=== PATIENT | male | born 1960 | race Caucasian/White ===

== ENCOUNTER 2016-07-13 12:20 | Inpatient (IN) | END 2016-07-21 18:00 | disposition home or self-care (01) | DRG 246 | DX: I21.4 Non-ST elevation (NSTEMI) myocardial infarction (principal); I50.43 Acute on chronic combined systolic (congestive) and diastolic (congestive) heart failure; I42.9 Cardiomyopathy, unspecified; I25.82 Chronic total occlusion of coronary artery; I97.410 Intraoperative hemorrhage and hematoma of a circulatory system organ or structure complicating a cardiac catheterization; I10 Essential (primary) hypertension; I25.10 Atherosclerotic heart disease of native coronary artery without angina pectoris; Y84.0 Cardiac catheterization as the cause of abnormal reaction of the patient, or of later complication, without mention of misadventure at the time of the procedure; Y71.3 Surgical instruments, materials and cardiovascular devices (including sutures) associated with adverse incidents; Y92.234 Operating room of hospital as the place of occurrence of the external cause; Z86.73 Personal history of transient ischemic attack (TIA), and cerebral infarction without residual deficits; Z88.8 Allergy status to other drugs, medicaments and biological substances; Z87.891 Personal history of nicotine dependence ==

== ENCOUNTER 2017-01-15 08:03 | Inpatient (IN) | payer OTHER ==
[~2017-01-15] VITALS: Ht 172.7 cm; Wt 82.0 kg
[2017-01-15] VITALS (23 sets, daily range): BP systolic 111–149; BP diastolic 61–95; PULSE 59–78; RESP 12–28; Ht 172.7 cm; Wt 82.0 kg
[~2017-01-15 08:03] MED LIST: ASPI325T4 PO; ATOR20TA38 PO; CLOP75TA27 PO; METO-429 PO; NITR0.4T6 SL
[2017-01-15] MEDS ORDERED: LIDOCAINE 1% (MDV) 20 ML INJ ONE (08:44)
[2017-01-15] MEDS ORDERED: METHYLPREDNISOLONE 125 MG INJ ONE (08:44)
[2017-01-15] MEDS ORDERED: HEPARIN 1000 UNITS/ML 10 ML INJ ONE (08:44)
[2017-01-15] MEDS ORDERED: DIPHENHYDRAMINE 50 MG INJ ONE (08:44)
[2017-01-15] MEDS ORDERED: IODIXANOL LOCM 100 ML BTL ONE ×2 (08:44→10:41)
[2017-01-15] MEDS ORDERED: MIDAZOLAM 1 MG/ML 2 ML INJ ONE (08:49)
[2017-01-15] MEDS ORDERED: FENTAnyl 50 MCG/ML VIAL ONE (08:49)
[2017-01-15] MEDS ORDERED: NITROGLYCERIN (IC) 100 MCG/ML INJ ONE (08:50)
[2017-01-15] MEDS ORDERED: VERAPAMIL 5 MG INJ ONE (08:50)
[2017-01-15] MEDS ORDERED: METHYLPREDNISOLONE 125 MG INJ IV ONE (09:00)
[2017-01-15] MEDS ORDERED: FAMOTIDINE 20 MG INJ IV ONE (09:00)
[2017-01-15] MEDS ORDERED: ASPI81TA3 PO (09:15)
[2017-01-15] MEDS ORDERED: ACET-514 PO (09:30)
[2017-01-15] MEDS ORDERED: LISI10TA2 PO (09:30)
[2017-01-15] MEDS ORDERED: IPRA3AMP INHALATION (09:30)
[2017-01-15] MEDS ORDERED: MORP1DIS4 IV (09:30)
[2017-01-15] MEDS ORDERED: ALBU2.5V3 NEB ×2 (09:30)
[2017-01-15] MEDS ORDERED: FURO40SO PO (09:30)
[2017-01-15] MEDS ORDERED: FUROSEMIDE 40 MG INJ ONE (10:04)
[2017-01-15] MEDS ORDERED: CLOPIDOGREL 300 MG TAB ONE (10:34)
[2017-01-15] MEDS ORDERED: IOHEXOL 350MG/ML 50 ML BTL ONE (10:41)
[2017-01-15] MEDS ORDERED: ONDANSETRON 4 MG INJ IV PRN (11:00)
[2017-01-15] MEDS ORDERED: AL HYDROX/MG HYDROX/SIMETH 30 ML CUP PO PRN (11:00)
[2017-01-15] MEDS ORDERED: ZOLPIDEM 5 MG TAB PO PRN (11:00)
[2017-01-15] MEDS ORDERED: ACETAMINOPHEN 325 MG TAB PO PRN (11:00)
[2017-01-15] MEDS ORDERED: OXYCODONE/ACETAMINOPHEN (5/325) TAB PO PRN (11:00)
[2017-01-15] MEDS: SOD CHLORIDE 0.9% 1,000 ML IV SCH (11:44)
[2017-01-15] MEDS ORDERED: FUROSEMIDE 40 MG INJ IV ONE (16:00)
--- NOTE | 2017-01-15 18:42 | QN ---
Documentation Comment [id number] JOSE JESSICA MD Jan 15, 2017 18:42
--- NOTE | 2017-01-15 19:07 | RADRPT ---
Vent Rate: 65 bpm RR Interval: 0 msec [place] Interval: 182 msec QRS Duration: 112 msec QT Interval: 456 msec QTC Interval: 474 msec P-R-T [place]: 44 - -16 - 0 degrees Normal sinus rhythm Possible Left atrial enlargement LVH with ST T wave abnormality ST amp; T wave abnormality, consider inferior ischemia ST amp; T wave abnormality, consider anterolateral ischemia Prolonged QT Abnormal ECG Electronically Signed By: Baron Cullen [id number]
[2017-01-15 21:26] LABS: CALCIUM 8.3 mg/dl (8.4-10.2); CREATININE 1.2 mg/dl (0.61-1.24); MAGNESIUM 1.8 mg/dl (1.7-2.5); POTASSIUM 3.9 mmol/L (3.5-5.1)
[2017-01-16] VITALS (12 sets, daily range): BP systolic 115–189; BP diastolic 64–99; PULSE 59–99; RESP 10–23
[2017-01-16] MEDS: SOD CHLORIDE 0.9% 1,000 ML IV SCH (04:27)
[2017-01-16 04:50] LABS: BASOPHILS % 0.1 % (0.0-2.0); EOSINOPHILS % 0.1 % (0.0-7.0); HEMATOCRIT 33.9 % (42.0-52.0); HEMOGLOBIN 10.5 g/dl (14.0-18.0); LYMPHOCYTES # 0.7 10^3/ul (0.8-2.9); MEAN CORPUSCULAR HEMOGLOBIN 27.3 pg (29.0-33.0); MEAN CORPUSCULAR VOLUME 88.3 fl (82.0-101.0); MEAN PLATELET VOLUME 10.2 fl (7.4-10.4); MONOCYTE # 0.5 10^3/ul (0.3-0.9); MONOCYTES % 6.1 % (0.0-11.0); NEUTROPHIL # 6.3 10^3/ul (1.6-7.5); NEUTROPHILS % 84.3 % (39.0-77.0); PLATELET COUNT 231 10^3/UL (140-415); RED BLOOD COUNT 3.84 10^6/ul (4.70-6.10); RED CELL DISTRIBUTION WIDTH 15.6 % (11.5-14.5); WHITE BLOOD COUNT 7.4 10^3/ul (4.8-10.8)
[2017-01-16 05:14] LABS: CALCIUM 8.5 mg/dl (8.4-10.2); CREATININE 1.11 mg/dl (0.61-1.24)
[2017-01-16] MEDS ORDERED: FUROSEMIDE 40 MG TAB PO SCH (06:45)
[2017-01-16] MEDS ORDERED: METOPROLOL 50 MG TAB PO ONE (07:00)
[2017-01-16] MEDS ORDERED: LISINOPRIL 10 MG TAB PO ONE (07:00)
[2017-01-16] MEDS ORDERED: CLOPIDOGREL 75 MG TAB PO SCH (09:00)
[2017-01-16] MEDS ORDERED: ASPIRIN (EC) 325 MG TAB PO SCH (09:00)
--- NOTE | 2017-01-16 09:45 | PDOCDIS ---
Discharge Instructions CONDITION Patient Condition: Good HOME CARE INSTRUCTIONS: Diet Instructions: Low Fat /Cholesterol ACTIVITY: Activity Restrictions: Slowly Increase Activity FOLLOW UP/APPOINTMENTS Follow-up Plan [address] Frost 1 week PCp HARJEET DELANEY Jan 16, 2017 09:45
[2017-01-16] MEDS ORDERED: FURO40TA4 PO (09:50)
[2017-01-16] MEDS ORDERED: ASPI325T32 PO (09:50)
[2017-01-16] MEDS ORDERED: POTA8CAP PO (09:50)
[2017-01-16] MEDS ORDERED: CLOP75TA28 PO (09:50)
--- NOTE | 2017-01-16 10:01 | PN ---
Date/Time of Note Date/Time of Note DATE: 01/16/17 TIME: 09:58 Assessment/Plan VTE Prophylaxis VTE Prophylaxis Intervention: ambulation Lines/Catheters IV Catheter Type (from [facility]): Peripheral IV Urinary Cath still in place: No Assessment/Plan Chief Complaint/Hosp Course 1. CAD 2. S/p left heart catheterization 3. Hypertension, controlled Problems: Assessment/Plan 1. Discharge home Subjective 24 Hr Interval Summary Constitutional: improved, no complaints Cardiovascular: chest pain, edema, No lightheadedness, No no complaints, No orthopenea, No other, No palpitations, No paroxysmal nocturnal dyspnea Exam/Review of Systems Vital Signs Vitals Vital Signs Date Time Temp Pulse Resp B/P Pulse Ox O2 Delivery O2 Flow Rate FiO2 01/16/17 09:00 76 16 136/77 98 Room Air 01/16/17 08:00 97.5 01/15/17 15:00 2.0 Intake and Output 01/15/17 01/15/17 01/16/17 15:00 23:00 07:00 Intake Total 602 ml 1115 ml 350 ml Output Total 800 ml 1670 ml 0 ml Balance -198 ml -555 ml 350 ml Exam Constitutional: alert, oriented Respiratory: clear to auscultation Cardiovascular: regular rate and rhythm Results Result Diagram: 01/16/17 0431 01/16/17 0431 Results 24 hrs Laboratory Tests Test 01/15/17 21:00 01/16/17 04:31 Sodium Level 141 144 Potassium Level 3.9 4.0 Chloride Level 100 103 Carbon Dioxide Level 26 29 Anion Gap 19 H 16 Blood Urea Nitrogen 22 H 25 H Creatinine 1.20 1.11 Glucose Level 211 95 # Calcium Level 8.3 L 8.5 Magnesium Level 1.8 White Blood Count 7.4 # Red Blood Count 3.84 L Hemoglobin 10.5 L Hematocrit 33.9 L Mean Corpuscular Volume 88.3 Mean Corpuscular Hemoglobin 27.3 L Mean Corpuscular Hemoglobin Concent 31.0 L Red Cell Distribution Width 15.6 H Platelet Count 231 Mean Platelet Volume 10.2 Neutrophils % 84.3 H Lymphocytes % 9.0 L Monocytes % 6.1 Eosinophils % 0.1 Basophils % 0.1 Nucleated Red Blood Cells % 0.0 Neutrophils # 6.3 Lymphocytes # 0.7 L Monocytes # 0.5 Eosinophils # 0.0 Basophils # 0.0 Nucleated Red Blood Cells # 0.0 Medications Medications Current Medications Aspirin (Ecotrin) 325 mg DAILY PO Last administered on 01/16/17 08:33; Admin Dose 325 MG; Start 01/16/17 at 09:00 Clopidogrel Bisulfate (plaVIX) 75 mg DAILY PO Last administered on 01/16/17 08 :33; Admin Dose 75 MG; Start 01/16/17 at 09:00 Acetaminophen (Tylenol Tab) 650 mg Q4H PRN PO NON-CARDIAC PAIN LEVEL 1-3; Start 01/15/17 at 11:00 Oxycodone/ Acetaminophen (Percocet (5/ 325)) 1 tab Q4H PRN PO REPORTED NON- CARDIAC PAIN 4-7; Start 01/15/17 at 11:00 Al Hydrox/Mg Hydrox/Simethicone (Mag-Al Plus) 30 ml Q4H PRN PO GASTROINTESTINAL UPSET; Start 01/15/17 at 11:00 Ondansetron HCl 4 mg 4 mg Q4H PRN IV NAUSEA AND/OR VOMITING; Start 01/15/17 at 11:00 Sodium Chloride (NS) 1,000 ml @ 50 mls/hr Q20H IV Last administered on 04:27; Admin Dose 50 MLS/HR; Start 01/15/17 at 11:00 Furosemide (Lasix) 40 mg DAILY@06 PO Last administered on 01/16/17 08:33; Admin Dose 40 MG; Start 01/16/17 at 06:45 HARJEET DELANEY Jan 16, 2017 10:01
--- NOTE | 2017-01-16 10:06 | CONS ---
Date/Time of Note Date/Time of Note DATE: 01/16/17 TIME: 10:04 Assessment/Plan Assessment/Plan Additional Assessment/Plan 1.Nstemi-s/p LHC with diffuse cad rca/lcx - now s/p PTCA - tolerated well - plan for dispo now. 2.Chest pain - resolved, om med rx now. 3.HTN - well rX. 4.abnl ecg - s/p LHC now. 5.Cardiomyopathy-decreased LVEF 40-45% -not in CHF by exam. Consultation Date/Type/Reason Admit Date/Time Jan 15, 2017 at 10:48 Initial Consult Date 24 HR Interval Summary Free Text/Dictation NO acute change - s/p PTCA - DR. Frost to follow as outpt. ROS: No fever, no chills, no nausea, no vomiting, no diarrhea/constipation No recent weight changes No chest pain, no PND, no orthopnea No dizziness, blurred vision No thirst, no heat or cold intolerance Exam/Review of Systems Vital Signs Vitals Vital Signs Date Time Temp Pulse Resp B/P Pulse Ox O2 Delivery O2 Flow Rate FiO2 01/16/17 09:00 76 16 136/77 98 Room Air 01/16/17 08:00 97.5 01/15/17 15:00 2.0 Intake and Output 01/15/17 01/15/17 01/16/17 15:00 23:00 07:00 Intake Total 602 ml 1115 ml 350 ml Output Total 800 ml 1670 ml 0 ml Balance -198 ml -555 ml 350 ml Exam General: WN/WD/NAD, AOx 3 HEENT: Unicetric/atraumatic/EOMI (follows commands) NECK: JVD elevated, no thyromegaly Lymph: no lymphadenopathy HEART: regular with no S3, II/ systolic murmur at apex LUNGS: Coarse sounds ABD: soft, NT, ND, +BS : Intact Neuro: non focal SKIN: chronic changes EXT: trace edema Results Result Diagram: 01/16/1743001/16/17 0431 Results 24 hrs Laboratory Tests Test 01/15/17 21:00 01/16/17 04:31 Sodium Level 141 144 Potassium Level 3.9 4.0 Chloride Level 100 103 Carbon Dioxide Level 26 29 Anion Gap 19 H 16 Blood Urea Nitrogen 22 H 25 H Creatinine 1.20 1.11 Glucose Level 211 95 # Calcium Level 8.3 L 8.5 Magnesium Level 1.8 White Blood Count 7.4 # Red Blood Count 3.84 L Hemoglobin 10.5 L Hematocrit 33.9 L Mean Corpuscular Volume 88.3 Mean Corpuscular Hemoglobin 27.3 L Mean Corpuscular Hemoglobin Concent 31.0 L Red Cell Distribution Width 15.6 H Platelet Count 231 Mean Platelet Volume 10.2 Neutrophils % 84.3 H Lymphocytes % 9.0 L Monocytes % 6.1 Eosinophils % 0.1 Basophils % 0.1 Nucleated Red Blood Cells % 0.0 Neutrophils # 6.3 Lymphocytes # 0.7 L Monocytes # 0.5 Eosinophils # 0.0 Basophils # 0.0 Nucleated Red Blood Cells # 0.0 Medications Medications Current Medications Aspirin (Ecotrin) 325 mg DAILY PO Last administered on 01/16/17 08:33; Admin Dose 325 MG; Start 01/16/17 at 09:00 Clopidogrel Bisulfate (plaVIX) 75 mg DAILY PO Last administered on 01/16/17 08 :33; Admin Dose 75 MG; Start 01/16/17 at 09:00 Acetaminophen (Tylenol Tab) 650 mg Q4H PRN PO NON-CARDIAC PAIN LEVEL 1-3; Start 01/15/17 at 11:00 Oxycodone/ Acetaminophen (Percocet (5/ 325)) 1 tab Q4H PRN PO REPORTED NON- CARDIAC PAIN 4-7; Start 01/15/17 at 11:00 Al Hydrox/Mg Hydrox/Simethicone (Mag-Al Plus) 30 ml Q4H PRN PO GASTROINTESTINAL UPSET; Start 01/15/17 at 11:00 Ondansetron HCl 4 mg 4 mg Q4H PRN IV NAUSEA AND/OR VOMITING; Start 01/15/17 at 11:00 Sodium Chloride (NS) 1,000 ml @ 50 mls/hr Q20H IV Last administered on 04:27; Admin Dose 50 MLS/HR; Start 01/15/17 at 11:00 Furosemide (Lasix) 40 mg DAILY@06 PO Last administered on 01/16/17 08:33; Admin Dose 40 MG; Start 01/16/17 at 06:45 ANDERSON SEN MD Jan 16, 2017 10:06
--- NOTE | 2017-01-17 21:10 | DS ---
Date/Time of Note Date/Time of Note DATE: 01/17/17 TIME: 21:06 Discharge Summary Admission/Discharge Info Admit Date/Time Jan 15, 2017 at 10:48 Discharge Date/Time Jan 16, 2017 at 13:12 Discharge Diagnosis NSTEMI, hypertension Patient Condition: Good Consults Dr Frost Procedures s/p left heart catheterization Hx of Present Illness Pt was admitted to [facility] with chest pain and uncontrolled hypertension, He was stabilized in [facility] and transferred for procedure to [facility]. Hospital Course 1. CAD 2. S/p left heart catheterization 3. Hypertension, controlled Home Meds Active Scripts Potassium Chloride* (Potassium Chloride*) 8 Meq Capsule.er, 8 MEQ PO BID for 30 Days, CAP Prov:HARJEET DELANEY 01/16/17 Furosemide* (Furosemide*) 40 Mg Tablet, 40 MG PO DAILY@06 for 30 Days, TAB Prov:HARJEET DELANEY 01/16/17 Clopidogrel Bisulfate (Clopidogrel) 75 Mg Tablet, 75 MG PO DAILY for 30 Days, TAB Prov:HARJEET DELANEY 01/16/17 Aspirin (Aspir-Sweetie) 325 Mg Tablet.dr, 325 MG PO DAILY for 30 Days Prov:HARJEET DELANEY 01/16/17 Reported Medications Acetaminophen (Acetaminophen) 325 Mg Tablet, 325 MG PO Q6 Y for MILD PAIN LEVEL 1-3, TAB 01/15/17 Lisinopril* (Lisinopril*) 10 Mg Tablet, 10 MG PO DAILY, #30 TAB 01/15/17 Aspirin* (Aspirin* Chew) 81 Mg Tab.chew, 81 MG PO DAILY, TAB.CHEW 01/15/17 Nitroglycerin* (Nitroglycerin* SL) 0.4 Mg Tab.subl, 0.4 MG SL Q5MIN Y for CHEST PAIN, #50 BOTTLE 07/21/16 Clopidogrel Bisulfate (Clopidogrel) 75 Mg Tablet, 75 MG PO DAILY, #30 TAB 07/21/16 Metoprolol Tartrate* (Lopressor*) 50 Mg Tab, 50 MG PO BID, #60 TAB 07/13/16 Atorvastatin Calcium* (Atorvastatin Calcium*) 20 Mg Tablet, 20 MG PO QHS, #30 TAB 07/13/16 Discontinued Reported Medications Albuterol Sulfate* (Albuterol Sulfate* Neb) 0.083%-3 Ml Neb, 2.5 MG NEB Q6 Y for SHORTNESS OF BREATH, #30 VIAL 01/15/17 Ipratropium-Albuterol (Ipratropium-Albuterol) 0.5-3 Mg/3 Ml Ampul.neb, 3 ML INHALATION Q6, #30 VIAL 01/15/17 Albuterol Sulfate* (Albuterol Sulfate* Neb) 0.083%-3 Ml Neb, 2.5 MG NEB Q4H, # 30 VIAL 01/15/17 Morphine (Morphine) 1 Mg/1 Ml Disp.syrin, 1 MG IV Q4H Y for SEVERE PAIN LEVEL 7- 10, EA 01/15/17 Furosemide* (Furosemide*) 40 Mg/5 Ml Solution, 40 MG PO BID, #300 ML 01/15/17 Aspirin* (Aspirin*) 325 Mg Tablet, 325 MG PO DAILY, #30 TAB 07/21/16 Primary Care Provider Not On Staff Doctor HARJEET DELANEY Jan 17, 2017 21:10
--- NOTE | 2017-01-18 06:52 | CARRPT ---
DATE OF PROCEDURE: TYPE OF PROCEDURE: 1. Left heart catheterization. 2. Coronary angiography. 3. Measurement of left ventricular end-diastolic pressure. 4. Percutaneous transluminal coronary angioplasty to PDA with 2.0 x 12 mm balloon. ATTENDING PHYSICIAN: Ernst Frost MD REFERRING PHYSICIAN: Brian Amaro MD TYPE OF ANESTHESIA: Conscious and local. INDICATION: Angina with positive stress test findings for inferior and inferolateral ischemia. BRIEF HISTORY AND HOSPITAL COURSE: The patient is a 56-year-old male with a history of hypertension, dyslipidemia, coronary artery disease, status post prior PTCA and stent placement in right coronary artery June 2016, and now represents with complaints of substernal chest pain consistent with angina. The patient additionally underwent a cardiac stress test at an outside hospital with inferior and inferolateral ischemia and depressed EF. Given these findings, patient referred for and presents today in order to undergo left heart catheterization as a transfer from Hospital for further evaluation and treatment of obstructive coronary artery disease and to assess for recurrent significant obstructive coronary artery disease. of chest pain, subsequently admitted to the hospital. PROCEDURE: After informed consent was obtained, the patient was brought the [facility] cardiac catheterization lab where his right radial area was prepped and draped in the usual sterile fashion. Two percent lidocaine was infiltrated into the right radial area in order to achieve adequate local anesthesia. Using modified Seldinger technique, the radial artery was cannulated and a 6-Macanese arterial sheath was placed. A 6- Macanese JL 3.5 catheter was used to cannulate the left main coronary ostium. With contrast injection, multiple views of the left coronary arterial system were obtained. A JL 3.5 guidewire and a JR 4 were used to cannulate the right coronary ostium. With contrast injection, multiple views of the right coronary arterial system were obtained. JR 4 was removed over guidewire and a 6-Macanese pigtail was passed down the ascending aorta and placed in the LV. Left ventricular end-diastolic pressure was measured. Pullback across the aortic valve to assess for a significant gradient, which there was not and removed. Subsequently, at this time, we moved directly into procedure. The patient had been given a radial cocktail that included 5000 units of heparin, 2.5 mg of verapamil and 200 mcg of IC nitroglycerin. The patient was given an additional 2000 units of heparin in order to achieve an adequate ACT. A JR 4 guide was used to cannulate the right coronary ostium. A Balance guidewire was passed distally into the vessel and left there as a latanya wire. A second 0.014 Senior Finance Manager 50 guidewire was passed distal into the PDA and a 2.0 x 12 mm balloon was used to make balloon inflations along the length of the vessel, restarting blood flow through this vessel. Subsequently, the balloon was removed due to inability to pass a stent and good balloon result of small caliber vessel. I elected to terminate the procedure at this point. Subsequently, the interventional guidewires were removed, and the patient given 200 mcg of IC nitroglycerin, and a followup angiogram was obtained revealing now significantly improved result with improved flow throughout the length of the patient's PDA which he before had a 99 percent blockage. Subsequently, at this time, the interventional guide and guidewires were removed. This completed the procedure. There were no noted complications. FINDINGS: 1. Coronary angiography. Left main 5 mm, no significant stenosis. Circumflex proximally is a 2.5 mm vessel and has a 70 to 80 percent stenosis and then becomes 100 percent occluded, and seen to be recapitulated via [id number] collaterals as has been previously on cath in June, extending from the patient's obtuse marginal branch and distally from the branches of LAD. The LAD proximally is a 3 mm vessel and is free of any significant focal stenoses until it get to the apex and just at the apex and around the apex has a very focal 90 to 95 percent stenosis. There is a mid branching diagonal 2.5 mm with a midbody tubular stenosis up to approximately 60 percent. The right coronary artery proximally is a 3 mm vessel and has a widely patent stent in its midportion. There is a posterolateral branch which covers a pretty significant territory, 2 mm with stenoses up to approximately 60 to 70 percent in its very, very distal portion where it was a 2 mm vessel. The patient's PDA has the stenosis up to approximately 90 to 95 percent. There are several acute marginal branches with diffuse stenosis up to approximately 70 to 80 percent. 2. Measurement of left ventricular end-diastolic pressure 38 to 40. No significant aortic stenosis by gradient. 3. PTCA. Prior to PTCA, within the patient's PDA, he had diffuse stenosis up to approximately 99 percent. Post PTCA, patient had digital approximately 30 percent stenosis in the proximal portion with excellent MARK III flow throughout the vessel. TOTAL FLUOROSCOPY TIME: 19.4 minutes. TOTAL CONTRAST: 230 mL. IMPRESSION: 1. Multivessel obstructive coronary artery disease previously known from prior catheterization, turned down for CABG, with likely for new angina being reoccluded PDA status post successful PTCA. 2. Widely patent mid right coronary artery stents. 3. A 100 percent occlusion of the patient's circumflex with [id number] collateral flow. 4. High-grade stenosis in the patient's LAD as it turns to apex of the heart. 5. Significantly elevated left heart filling pressures. 6. No significant aortic stenosis by gradient. RECOMMENDATIONS: 1. Would maintain patient on Plavix 75 mg 1 tab p.o. daily times at least 1 year. 2. Aspirin 325 mg 1 tab p.o. daily indefinitely. 3. Maximize medical management. 4. Aggressive risk factor reduction. 5. The patient will be admitted to the ICU for of his presenting symptoms. Dictated By: Estephania Hamilton /fnt/ec /Document#: [id number] CC: Brian Amaro MD;*End*
--- NOTE | 2017-01-18 19:29 | RADRPT ---
Vent Rate: 80 bpm RR Interval: 0 msec [place] Interval: 202 msec QRS Duration: 108 msec QT Interval: 410 msec QTC Interval: 472 msec P-R-T [place]: 55 - 46 - 138 degrees Normal sinus rhythm Possible Left atrial enlargement Incomplete left bundle branch block ST amp; T wave abnormality, consider lateral ischemia Prolonged QT Abnormal ECG Electronically Signed By: Baron Cullen [id number]
--- NOTE | 2017-01-18 19:29 | RADRPT ---
Vent Rate: 67 bpm RR Interval: 0 msec [place] Interval: 182 msec QRS Duration: 118 msec QT Interval: 484 msec QTC Interval: 511 msec P-R-T [place]: 33 - 9 - 0 degrees Normal sinus rhythm Possible Left atrial enlargement Possible Inferior infarct , age undetermined Anterior infarct , age undetermined ST amp; T wave abnormality, consider lateral ischemia Prolonged QT Abnormal ECG Electronically Signed By: Baron Cullen [id number]
== END 2017-01-16 13:12 | disposition home or self-care (01) | DRG 251 ==
LOC: SDS 08:03 → CCL 08:03 → ICU 10:48
PROVIDERS: ADMIT Internal Medicine Nephrology; ATTEND Internal Medicine Nephrology
PROC: B2101ZZ Fluoroscopy of Single Coronary Artery using Low Osmolar Contrast (ICD-10-PCS; 2017-01-15)
PROC: 02703ZZ Dilation of Coronary Artery, One Artery, Percutaneous Approach (ICD-10-PCS; principal; 2017-01-15 09:00)
PROC: 4A023N7 Measurement of Cardiac Sampling and Pressure, Left Heart, Percutaneous Approach (ICD-10-PCS; 2017-01-15 09:00)
DX: I21.4 Non-ST elevation (NSTEMI) myocardial infarction (principal); I42.9 Cardiomyopathy, unspecified; I25.10 Atherosclerotic heart disease of native coronary artery without angina pectoris; I10 Essential (primary) hypertension; Z79.82 Long term (current) use of aspirin
CPT/HCPCS: 80048; 83735; 85025; 87081; 92920; 93005; 93459; C1725; C1769; C1887; J1200; J1644; J1940; J2250; J2930; J3010; J7030; Q9967

== ENCOUNTER 2017-02-27 21:37 | Inpatient (IN) | payer OTHER ==
[~2017-02-27] VITALS: Ht 172.7 cm; Wt 76.0 kg
[~2017-02-27 21:37] MED LIST changes: +ACET-514 PO; +ASPI325T32 PO; -ASPI325T4 PO; +ASPI81TA3 PO; +CLOP75TA28 PO; +FURO40TA4 PO; +LISI10TA2 PO; +POTA8CAP PO
[2017-02-27] MEDS ORDERED: FUROSEMIDE 40 MG INJ IV ONE (22:30)
[2017-02-27] MEDS ORDERED: ENALAPRILAT 1.25 MG INJ IV ONE (22:30)
[2017-02-27] MEDS ORDERED: ASPIRIN 81 MG TAB PO ONE (22:30)
[2017-02-27] MEDS ORDERED: NITROGLYCERIN (SL) 0.4 MG TAB SL ONE (22:30)
[2017-02-27 23:15] LABS: BASOPHIL # 0.1 10^3/ul (0.0-0.1); BASOPHILS % 0.7 % (0.0-2.0); EOSINOPHILS # 0.1 10^3/ul (0.0-0.5); EOSINOPHILS % 1.5 % (0.0-7.0); HEMATOCRIT 36.9 % (42.0-52.0); HEMOGLOBIN 11.3 g/dl (14.0-18.0); LYMPHOCYTES # 1.1 10^3/ul (0.8-2.9); LYMPHOCYTES % 12.5 % (15.0-51.0); MEAN CORPUSCULAR HEMOGLOBIN 26.5 pg (29.0-33.0); MEAN CORPUSCULAR HGB CONC 30.6 g/dl (32.0-37.0); MEAN CORPUSCULAR VOLUME 86.4 fl (82.0-101.0); MEAN PLATELET VOLUME 9.7 fl (7.4-10.4); MONOCYTE # 0.6 10^3/ul (0.3-0.9); NEUTROPHILS % 77.8 % (39.0-77.0); PLATELET COUNT 345 10^3/UL (140-415); RED BLOOD COUNT 4.27 10^6/ul (4.70-6.10); RED CELL DISTRIBUTION WIDTH 15.8 % (11.5-14.5); WHITE BLOOD COUNT 8.6 10^3/ul (4.8-10.8)
[2017-02-27 23:30] LABS: CALCIUM 8.8 mg/dl (8.4-10.2); CREATININE 1.37 mg/dl (0.61-1.24); POTASSIUM 3.7 mmol/L (3.5-5.1)
[2017-02-27 23:31] LABS: ALBUMIN 3.8 g/dl (3.3-4.9); ALBUMIN/GLOBULIN RATIO 1.11; TOTAL PROTEIN 7.2 g/dl (6.1-8.1)
--- NOTE | 2017-02-27 23:45 | ERA ---
ER Documentation Chief Complaint Date/Time DATE: 02/27/17 TIME: 23:41 Chief Complaint HPI 56-year-old man presents with shortness of breath, dyspnea on exertion, bilateral pedal edema 2-3 days after running out of his nitroglycerin and aspirin. Patient has a long history of CHF. Patient denies chest pain, no fevers or chills, no vomiting or diarrhea, no abdominal pain. ROS All systems reviewed and are negative except as per history of present illness. Medications Home Meds Active Scripts Potassium Chloride* (Potassium Chloride*) 8 Meq Capsule.er, 8 MEQ PO BID for 30 Days, CAP Prov:HARJEET DELANEY 01/16/17 Furosemide* (Furosemide*) 40 Mg Tablet, 40 MG PO DAILY@06 for 30 Days, TAB Prov:HARJEET DELANEY 01/16/17 Clopidogrel Bisulfate (Clopidogrel) 75 Mg Tablet, 75 MG PO DAILY for 30 Days, TAB Prov:HARJEET DELANEY 01/16/17 Aspirin (Aspir-Sweetie) 325 Mg Tablet.dr, 325 MG PO DAILY for 30 Days Prov:HARJEET DELANEY 01/16/17 Reported Medications Acetaminophen (Acetaminophen) 325 Mg Tablet, 325 MG PO Q6 Y for MILD PAIN LEVEL 1-3, TAB 01/15/17 Lisinopril* (Lisinopril*) 10 Mg Tablet, 10 MG PO DAILY, #30 TAB 01/15/17 Aspirin* (Aspirin* Chew) 81 Mg Tab.chew, 81 MG PO DAILY, TAB.CHEW 01/15/17 Nitroglycerin* (Nitroglycerin* SL) 0.4 Mg Tab.subl, 0.4 MG SL Q5MIN Y for CHEST PAIN, #50 BOTTLE 07/21/16 Clopidogrel Bisulfate (Clopidogrel) 75 Mg Tablet, 75 MG PO DAILY, #30 TAB 07/21/16 Metoprolol Tartrate* (Lopressor*) 50 Mg Tab, 50 MG PO BID, #60 TAB 07/13/16 Atorvastatin Calcium* (Atorvastatin Calcium*) 20 Mg Tablet, 20 MG PO QHS, #30 TAB 07/13/16 Allergies Allergies: Coded Allergies: Iodine (Verified Allergy, FAINT, 01/30/11) PMhx/Soc Previous TIA, coronary artery disease status post balloon and stent angioplasty of the LAD, hypertension, CHF, previous non-STEMI History of Surgery: No Anesthesia Reaction: No Hx Neurological Disorder: No Hx Respiratory Disorders: No Hx Cardiac Disorders: Yes Hx Psychiatric Problems: No Hx Miscellaneous Medical Probl: Yes Hx Alcohol Use: No Hx Substance Use: No Hx Tobacco Use: Yes FmHx Family History: No diabetes Physical Exam Vitals Vital Signs Date Time Temp Pulse Resp B/P Pulse Ox O2 Delivery O2 Flow Rate FiO2 02/28/17 00:14 98.5 85 23 150/71 99 Room Air 2.0 02/27/17 23:54 98.5 75 23 161/81 99 Room Air 2.0 02/27/17 23:45 98.5 89 23 175/71 99 02/27/17 23:13 98.7 81 19 154/74 100 Room Air 2.0 Physical Exam GENERAL: Well-developed, well-nourished, dyspneic, afebrile HEENT: Moist mucous membranes, pink conjunctiva, no cervical spine tenderness or step-off deformities, no goiter, no jaundice or icterus, extraocular movements intact without pain. No submandibular induration, and no pharyngeal erythema NEURO: Alert and oriented 3, cranial nerves II through XII intact bilaterally, pupils equal round reactive to light, no focal deficits or facial asymmetry, sensation intact distally Strength 5/5 in upper and lower extremities bilaterally CARDIAC: Regular rate and rhythm, no murmurs rubs or gallops LUNGS: Bilateral crackles, poor air entry, no wheezing or stridor ABDOMEN: Soft nontender, no guarding, no rigidity, no rebound, no psoas sign no obturator sign. Normoactive bowel sounds SKIN: Warm and dry to touch, no abrasions, contusions, or hematomas, no lacerations, no ecchymosis, no target lesions, and without ulcers EXTREMITIES: 1+ pedal edema bilaterally, calves are bilaterally symmetrical, no Homans sign, no popliteal cord sign. Distal pulses equal and bilateral PSYCH: Normal affect without agitation or irritability Result Diagram: 02/27/17222502/27/172225 Results 24 hrs Laboratory Tests Test 02/27/17 22:26 White Blood Count 8.610^3/ul Red Blood Count 4.2710^6/ul Hemoglobin 11.3g/dl Hematocrit 36.9% Mean Corpuscular Volume 86.4fl Mean Corpuscular Hemoglobin 26.5pg Mean Corpuscular Hemoglobin Concent 30.6g/dl Red Cell Distribution Width 15.8% Platelet Count 28022^3/UL Mean Platelet Volume 9.7fl Neutrophils % 77.8% Lymphocytes % 12.5% Monocytes % 7.0% Eosinophils % 1.5% Basophils % 0.7% Nucleated Red Blood Cells % 0.0/100WBC Neutrophils # (Manual) 6.710^3/ul Lymphocytes # 1.110^3/ul Monocytes # 0.610^3/ul Eosinophils # 0.110^3/ul Basophils # 0.110^3/ul Nucleated Red Blood Cells # 0.010^3/ul Sodium Level 143mmol/L Potassium Level 3.7mmol/L Chloride Level 110mmol/L Carbon Dioxide Level 20mmol/L Anion Gap 17 Blood Urea Nitrogen 29mg/dl Creatinine 1.37mg/dl Glucose Level 135mg/dl Calcium Level 8.8mg/dl Total Bilirubin 1.0mg/dl Direct Bilirubin 0.00mg/dl Indirect Bilirubin 1.0mg/dl Aspartate Amino Transf (AST/SGOT) 21IU/L Alanine Aminotransferase (ALT/SGPT) 32IU/L Alkaline Phosphatase 73IU/L Troponin I 0.014ng/ml B-Type Natriuretic Peptide 20741AT/ML Total Protein 7.2g/dl Albumin 3.8g/dl Globulin 3.40g/dl Albumin/Globulin Ratio 1.11 Lipase 132U/L Current Medications Medications (Trade) Dose Ordered Sig/Estelita Route PRN Reason Start Time Stop Time Status Last Admin Dose Admin Nitroglycerin (Nitroglycerin (Sl Tab) 0.4 Mg) 1 tab ONCE ONCE SL 02/27/17 22:30 02/27/17 22:31 DC 02/27/17 22:49 Aspirin (Aspirin) 324 mg ONCE ONCE PO 02/27/17 22:30 02/27/17 22:31 DC 02/27/17 22:47 Enalaprilat (Vasotec Iv) 1.25 mg ONCE ONCE IV 02/27/17 22:30 02/27/17 22:31 DC 02/27/17 22:49 Furosemide (Lasix) 60 mg ONCE ONCE IV 02/27/17 22:30 02/27/17 22:31 DC 02/27/17 22:49 Nitroglycerin (Nitroglycerin (Sl Tab) 0.4 Mg) 3 tab ONCE ONCE SL 02/28/17 00:00 02/28/17 00:01 DC Procedures/MDM IV line was established patient was placed on cardiac nurse practitioner rhythm strip revealed a sinus rhythm at about 70 bpm with upright P and T waves. Patient was afebrile. One view chest x-ray performed, read by me revealed cardiomegaly and bilateral pulmonary vascular congestion consistent with decompensated heart failure, no acute infiltrates, no pneumothorax. EKG performed, read by me revealed a normal sinus rhythm at 74 bpm, normal axis with a right ventricular conduction delay and T-wave inversions in leads V5 through V6. No acute ST elevations or depressions noted. I initially administered aspirin 324 mg p.o. for cardioprotective measures, enalapril 1.25 mg IV, furosemide 60 mg IV 1 and nitroglycerin 0.4 mg sublingual 3. CBC and electrolytes were normal, liver function tests normal, troponin negative , BNP elevated. Critical Care: Time: 50 minutes, this was time separate from other billable procedures. Treatments/Evaluations: Close monitoring and treatment of unstable vital signs, cardiorespiratory, and neurologic status, while maintaining tight balance of fluid, respiratory, and cardiac interventions. For continued symptoms and to help with diuresis further I administered another round of nitroglycerin 0.4 mg sublingual 3 Patient will be admitted to telemetry setting under Dr. Amaro. Departure Diagnosis: Primary Impression: CHF (congestive heart failure) Qualified Code: I50.41 - Acute combined systolic and diastolic congestive heart failure Additional Impression: Hypertension Qualified Code: I10 - Essential hypertension Condition: CE Ochoa MD Feb 27, 2017 23:45
--- NOTE | 2017-02-27 23:58 | RADRPT ---
PROCEDURE: Portable chest x-ray. CLINICAL INDICATION: 56 years of age, female. Shortness of breath. TECHNIQUE: Portable AP view of the chest. COMPARISON: July 14, 2016 FINDINGS: Tortuous aorta. Diffuse globular globular enlargement of the cardiopericardial silhouette has increa sed from prior exam. Pulmonary vessels are prominent and indistinct and there is hazy ground-glass opacity in the lungs i n keeping with interstitial edema. Left lung base opacity may represent atelectasis. Negative for pleural effusion or pneumothorax. No acute bony abnormality. IMPRESSION: Diffuse globular enlargement of cardiopericardial silhouette is increased from prior exam and may be due to cardiomegaly and/or pericardial effusion. Interstitial pulmonary edema. RPTAT: HCTS Physician Grisel Date Time Electronically viewed and signed by Oswald Brasher Physician on 02/27/2017 23:58 /
[2017-02-28] MEDS ORDERED: NITROGLYCERIN (SL) 0.4 MG TAB SL ONE
[2017-02-28 00:04] LABS: TROPONIN-I 0.014 ng/ml (0.00-0.12)
[2017-02-28 02:00] VITALS: TEMP 98.7
[2017-02-28] MEDS ORDERED: ACETAMINOPHEN 325 MG TAB PO PRN ×2 (06:30)
[2017-02-28] MEDS ORDERED: HYDROCODONE/APAP (5/325) TAB PO PRN (06:30)
[2017-02-28] MEDS ORDERED: DOCUSATE SODIUM 100 MG CAP PO PRN (06:30)
[2017-02-28] MEDS ORDERED: ZOLPIDEM 5 MG TAB PO PRN (06:30)
[2017-02-28] MEDS ORDERED: FUROSEMIDE 40 MG INJ IV ONE (06:30)
[2017-02-28] MEDS ORDERED: NACL 0.9% 3 ML SYG IV SCH (06:30)
[2017-02-28] MEDS ORDERED: NITROGLYCERIN (SL) 0.4 MG TAB SL PRN (06:30)
[2017-02-28] MEDS ORDERED: ONDANSETRON 4 MG INJ IV PRN (06:30)
[2017-02-28] MEDS: FAMOTIDINE 20 MG TAB PO SCH ×2 (08:39→21:00)
[2017-02-28] MEDS: ASPIRIN 81 MG TAB PO SCH (08:40)
[2017-02-28] MEDS: CLOPIDOGREL 75 MG TAB PO SCH (08:41)
[2017-02-28] MEDS: ENOXAPARIN 30 MG/0.3 ML SYG SC SCH (08:41)
[2017-02-28] MEDS: METOPROLOL 50 MG TAB PO SCH ×2 (08:41→21:00)
[2017-02-28] MEDS ORDERED: CLOPIDOGREL 75 MG TAB PO SCH (09:00)
[2017-02-28 10:27] LABS: ADD UMIC NO; UR ASCORBIC ACID NEGATIVE (NEGATIVE); UR BILIRUBIN (Dip) NEGATIVE (NEGATIVE); UR BLOOD (Dip) NEGATIVE (NEGATIVE); UR CLARITY CLEAR (CLEAR); UR COLOR STRAW (YELLOW); UR GLUCOSE (Dip) NEGATIVE (NEGATIVE); UR KETONES (Dip) NEGATIVE (NEGATIVE); UR LEUKOCYTE ESTERASE (Dip) NEGATIVE Leu/ul (NEGATIVE); UR NITRITE (Dip) NEGATIVE (NEGATIVE); UR SPECIFIC GRAVITY (Dip) 1.006 (1.003-1.030); UR TOTAL PROTEIN (Dip) NEGATIVE (NEGATIVE); UR UROBILINOGEN (Dip) NEGATIVE (NEGATIVE)
--- NOTE | 2017-02-28 12:44 | RADRPT ---
Echocardiogram Report Patient Name: GILMA DASH Gender: Male Date: 1960 Study Date: 28-Feb-2017 News Internship: [facility] Location: [facility] Ref. Physician: ECTOR WHITAKER Quality: Adequate Procedures: Transthoracic echocardiogram with complete 2D, M-Mode, and doppler examination. Indications: Cardiomegaly, chf. 2D/M Mode Doppler Measurement Value Normal Ranges Measurement Value Normal Ranges LVIDd 2D 6.6 3.5 - 5.6 cm AV Peak Josh 2.2 m/sec LVIDs 2D 4.9 2.1 - 4.1 cm AV Peak PG 19.0 mmHg FS 2D 24.9 % AI Peak PG 109.0 mmHg LVPWd 2D 1.3 0.6 - 1.1 cm AI Peak Josh 5.2 m/sec IVSd 2D 1.3 0.6 - 1.1 cm AI PHT 341.0 msec IVS/LVPW 2D 1.0 LVOT Peak Josh 1.1 m/sec AoR Diam 2D 3.5 2.0 - 3.7 cm LVOT Peak PG 5.0 mmHg LA/Ao 2D 1 0 - 1 MV E Peak Josh 1.0 m/sec EDV 2D 286.0 cm3 MV A Peak Josh 0.5 m/sec ESV 2D 121.0 cm3 MV E/A 2.0 LA Dimen 2D 4.7 2.3 - 4.0 cm MV Decel Time 151 msec MV E/A 2.0 MR Peak PG 161.0 mmHg MR Peak Josh 6.3 m/sec TR Peak Josh 2.7 m/sec TR Peak PG 29.0 mmHg RVSP 37.0 mmHg Findings Left Ventricle: Mild concentric left ventricular hypertrophy. Moderate enlargement of left ventricle cavity. Moderate left ventricular systolic dysfunction. Ejection fraction is visually estimated at 40 %. Abnormal Diastolic Function. Right Ventricle: Normal right ventricular size. Normal right ventricular systolic function. Left Atrium: There is moderate enlargement of left atrium. Right Atrium: The right atrium is normal in size. Mitral Valve: Mitral valve leaflets appear mildly thickened. Mild mitral annular calcification. Moderate mitral valve regurgitation. Aortic Valve: Aortic sclerosis without stenosis. Moderate to severe aortic valve regurgitation. Tricuspid Valve: Normal appearance of the tricuspid valve. Estimated peak PA systolic pressure 37 mmHg. There is mild tricuspid regurgitation. Pericardium: Normal pericardium with no significant pericardial effusion. Aorta: Normal aortic root. IVC: Dilated inferior vena cava with poor inspiratory collapse consistent with elevated right atrial pressures. Conclusions 1.Mild concentric left ventricular hypertrophy. Moderate enlargement of left ventricle cavity. Moderate left ventricular systolic dysfunction. Ejection fraction is visually estimated at 40 %. Abnormal Diastolic Function. 2.Normal right ventricular size. Normal right ventricular systolic function. 3.Mitral valve leaflets appear mildly thickened. Mild mitral annular calcification. Moderate to severe mitral valve regurgitation. 4.Aortic sclerosis without stenosis. Moderate to severe aortic valve regurgitation. 5.Normal appearance of the tricuspid valve. Estimated peak PA systolic pressure 37 mmHg. There is mild tricuspid regurgitation. 6.Mild Pulmonary Hypertension. 7.Normal pericardium with no significant pericardial effusion. Electronically Signed By: Artis Francis 28-Feb-2017 12:42:42 -0700 Patient Name: GILMA DASH Study Date: 28-Feb-2017 [id number]
[2017-02-28 15:30] VITALS: BP 150/72; PULSE 64; PULSE 66; RESP 17; Ht 172.7 cm; Wt 76.0 kg
[2017-02-28 16:00] VITALS: PULSE 67
--- NOTE | 2017-02-28 17:31 | PN ---
Date/Time of Note Date/Time of Note DATE: 02/28/17 TIME: 17:26 Assessment/Plan VTE Prophylaxis VTE Prophylaxis Intervention: LMWH Assessment/Plan Chief Complaint/Hosp Course 56 y/o with 1. CHF exacerbation systolic and diastolic likely secondary to running out of meds x few days, + water consumption, could be also worsening ischemia but denies chest pain and troponin negative 2.hx .Nstemi-s/p C with diffuse cad rca/lcx - now s/p PTCA in 12/2016 3.HTN 4.Elevated BNP due to# 1 5 DWIGHT likely secondary to worsening CHF 6.Cardiomyopathy Recs - Strict I and O - Daily wts, fluid restriction 1 L - Lasix 40 - ECHO pending - Hold WES due to DWIGHT - ? Coreg over MTP> will defer to cards - Dr Frost consult Problems: Subjective 24 Hr Interval Summary Free Text/Dictation Pt feels little better but still sob Exam/Review of Systems Vital Signs Vitals Vital Signs Date Time Temp Pulse Resp B/P Pulse Ox O2 Delivery O2 Flow Rate FiO2 02/28/17 16:00 67 02/28/17 15:30 17 150/72 96 Nasal Cannula 2.0 02/28/17 02:45 40 02/28/17 02:00 98.7 Exam Gen:awake,alert Neck+ JVD angle Heart: Regualr rate and rthym Lungs: few crackles at bases Abdomen:soft , non tender Ext trace edema Results Result Diagram: 02/27/176 02/27/17 2226 Results 24 hrs Laboratory Tests Test 02/27/17 22:26 02/28/17 10:12 White Blood Count 8.6 Red Blood Count 4.27 L Hemoglobin 11.3 L Hematocrit 36.9 L Mean Corpuscular Volume 86.4 Mean Corpuscular Hemoglobin 26.5 L Mean Corpuscular Hemoglobin Concent 30.6 L Red Cell Distribution Width 15.8 H Platelet Count 345 # Mean Platelet Volume 9.7 Neutrophils % 77.8 H Lymphocytes % 12.5 L Monocytes % 7.0 Eosinophils % 1.5 Basophils % 0.7 Nucleated Red Blood Cells % 0.0 Neutrophils # (Manual) 6.7 Lymphocytes # 1.1 Monocytes # 0.6 Eosinophils # 0.1 Basophils # 0.1 Nucleated Red Blood Cells # 0.0 Sodium Level 143 Potassium Level 3.7 Chloride Level 110 Carbon Dioxide Level 20 L Anion Gap 17 H Blood Urea Nitrogen 29 H Creatinine 1.37 H Glucose Level 135 Calcium Level 8.8 Total Bilirubin 1.0 Direct Bilirubin 0.00 Indirect Bilirubin 1.0 Aspartate Amino Transf (AST/SGOT) 21 Alanine Aminotransferase (ALT/SGPT) 32 Alkaline Phosphatase 73 Troponin I 0.014 B-Type Natriuretic Peptide 32057 H Total Protein 7.2 Albumin 3.8 Globulin 3.40 H Albumin/Globulin Ratio 1.11 Lipase 132 Urine Color STRAW Urine Clarity CLEAR Urine pH 6.0 Urine Specific [place] 1.006 Urine Ketones NEGATIVE Urine Nitrite NEGATIVE Urine Bilirubin NEGATIVE Urine Urobilinogen NEGATIVE Urine Leukocyte Esterase NEGATIVE Urine Hemoglobin NEGATIVE Urine Glucose NEGATIVE Urine Total Protein NEGATIVE Medications Medications Current Medications Ondansetron HCl (Zofran Inj) 4 mg Q6H PRN IV NAUSEA AND/OR VOMITING; Start 04/06 at 06:30 Acetaminophen (Tylenol Tab) 650 mg Q6H PRN PO PAIN LEVEL 1-3 OR FEVER; Start at 06:30 Acetaminophen/ Hydrocodone Bitart ([place] (5/325)) 1 tab Q6H PRN PO MODERATE PAIN LEVEL 4-6; Start 02/28/17 at 06:30 Docusate Sodium (Colace) 100 mg Q12H PRN PO CONSTIPATION; Start 02/28/17 at 06: 30 Zolpidem Tartrate (Ambien) 5 mg QHS PRN PO SLEEP; Start 02/28/17 at 06:30 Famotidine (Pepcid) 20 mg Q12 PO Last administered on 02/28/17 08:39; Admin Dose 20 MG; Start 02/28/17 at 09:00 Enoxaparin Sodium (Lovenox) 30 mg DAILY SC Last administered on 02/28/17 08:41 ; Admin Dose 30 MG; Start 02/28/17 at 09:00 Aspirin (Aspirin) 81 mg DAILY PO Last administered on 02/28/17 08:40; Admin Dose 81 MG; Start 02/28/17 at 09:00 Atorvastatin Calcium (Lipitor) 20 mg QHS PO ; Start 02/28/17 at 21:00 Clopidogrel Bisulfate (plaVIX) 75 mg DAILY PO Last administered on 02/28/17 08 :41; Admin Dose 75 MG; Start 02/28/17 at 09:00 Metoprolol Tartrate (Lopressor) 50 mg BID PO Last administered on 02/28/17t 08: 41; Admin Dose 50 MG; Start 02/28/17 at 09:00 Nitroglycerin (Nitroglycerin (Sl Tab) 0.4 Mg) 0.4 tab [id number] PRN SL CHEST PAIN; Start 02/28/17 at 06:30 ECTOR WHITAKER MD Feb 28, 2017 17:31
--- NOTE | 2017-02-28 19:03 | HP ---
DATE OF ADMISSION: 02/27/2017 REASON FOR ADMISSION: Shortness of breath. HISTORY OF PRESENT ILLNESS: This is a 56-year-old male with a past medical history of hypertension, hypercholesteremia, history of coronary artery disease status post left heart catheterization with diffuse coronary artery disease of the RCA and left circumflex status post PTCA in 12/2016, cardiomyopathy. He presented to the emergency department complaining of shortness of breath for 4 to 5 days. According to the patient he takes Lasix 40 mg at home. 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 He ran out of the medications but never cared for getting a refill. Yesterday he was feeling short of breath after going from the bed to the bathroom and it made him worried and he came to the emergency department. The patient had orthopnea. Denied any chest pain, any lower extremity edema. Denied any PND. Denied any cough. In the ED his vital signs were blood pressure 156/80, heart rate 66, respirations 24, O2 saturation 99 percent on room air. Chest x-ray showed pulmonary edema and BNP showed 191.00. The patient received Lasix 60 mg IV x1 and was admitted for further management. PAST MEDICAL HISTORY: 1. Hypertension. 2. Hyperlipidemia. 3. History of coronary artery disease status post [____] with diffuse coronary artery disease, right circumflex and left circumflex right coronary artery now status post PTCA in 12/2016. 4. Congestive heart failure both systolic and diastolic. 5. Anemia. ALLERGIES: IODINE. MEDICATIONS: Aspirin 81 mg p.o. daily, Lasix 40 mg p.o. daily, Plavix 75 mg p.o. daily, atorvastatin 20 mg p.o. q.h.s., lisinopril 10 mg p.o. daily, metoprolol 50 mg p.o. b.i.d., potassium chloride 8 mEq p.o. b.i.d., nitroglycerin p.r.n. chest pain. SOCIAL HISTORY: He is an ex-smoker. He used to use marijuana before, but stop using it a couple years ago. FAMILY HISTORY: Significant for coronary artery disease in the mother who at the age of 40. REVIEW OF SYSTEMS: The patient complained of shortness of breath and orthopnea. Denied any chest pain, any cough, any fevers or chills. Denies any nausea, vomiting or diarrhea. Denies any headache, any blurry vision. Denies any hematemesis or any melena. Denies any focal neurological deficits. PHYSICAL EXAMINATION: GENERAL: The patient is awake, alert and oriented x4. Appears to be in mild respiratory distress. Currently on oxygen. NECK: Supple. JVD present up to the angle of the mandible. HEART: Regular rate and rhythm. No murmurs, rubs or gallops. LUNGS: Bilateral diffuse crackles. ABDOMEN: Soft, nontender and nondistended. Positive normoactive bowel sounds. EXTREMITIES: Trace edema. NEUROLOGIC: Nonfocal. LABORATORY DATA: Sodium 143, potassium 3.7, chloride 110, bicarbonate 20, BUN of 29, creatinine 1.37 which is increased from 1.11 in 12/2016. BNP is 191.00. Albumin is 3.8, white count is 11.3, platelet count is 345,000. Chest x-ray shows diffuse global enlargement of pericardial silhouette and cardiomegaly and some pericardial effusion, interstitial pulmonary edema. EKG shows normal sinus rhythm and ST-T wave inversions in leads V4 and V6. IMPRESSION: The patient is a 56-year-old presenting with. 1. Shortness of breath with orthopnea with elevated BNP and chest x-ray evidence of pulmonary edema likely secondary as the patient has been out of medications for almost 1 week. Could have underlying ischemia; however, the patient has extensive multi-coronary artery disease; however, troponin was 0.014. 2. Mild acute kidney injury, last discharge creatinine was 1.11 and this is 1.37. 3. Elevated BNP due to number 1. 4. Hypertension. 5. Hypercholesteremia. 6. History of congestive heart failure both systolic and diastolic. 7. Multivessel coronary artery disease. PLAN: At this period of time the patient is admitted to [facility]. There we will get serial weights, fluid restriction, eyes and nose. We will start the patient on IV Lasix 40. We will continue the patient on metoprolol and aspirin. Will hold the Alejo inhibitor for now due to DWIGHT. Echocardiogram will be repeated. We will call a Cardiology consultation with Dr. Frost. The rest of the treatment depends on the patient's hospitalization course. Dictated By: MD KYLER Groves/zulema/son /Document#: [id number]
[2017-02-28 20:00] VITALS: BP 166/79; RESP 20
[2017-02-28 20:31] VITALS: PULSE 66
[2017-02-28] MEDS: ATORVASTATIN 20 MG TAB PO SCH (21:00)
[2017-03-01] VITALS (14 sets, daily range): BP systolic 120–153; BP diastolic 56–81; PULSE 57–81; RESP 18–20
[2017-03-01 06:42] LABS: BASOPHIL # 0.1 10^3/ul (0.0-0.1); BASOPHILS % 0.7 % (0.0-2.0); EOSINOPHILS # 0.2 10^3/ul (0.0-0.5); EOSINOPHILS % 2.7 % (0.0-7.0); HEMATOCRIT 34.7 % (42.0-52.0); HEMOGLOBIN 10.4 g/dl (14.0-18.0); LYMPHOCYTES % 12.4 % (15.0-51.0); MEAN CORPUSCULAR HEMOGLOBIN 26.3 pg (29.0-33.0); MEAN CORPUSCULAR VOLUME 87.8 fl (82.0-101.0); MEAN PLATELET VOLUME 10.1 fl (7.4-10.4); MONOCYTE # 0.6 10^3/ul (0.3-0.9); MONOCYTES % 6.9 % (0.0-11.0); NEUTROPHILS % 76.9 % (39.0-77.0); PLATELET COUNT 280 10^3/UL (140-415); RED BLOOD COUNT 3.95 10^6/ul (4.70-6.10); RED CELL DISTRIBUTION WIDTH 15.6 % (11.5-14.5); WHITE BLOOD COUNT 8.2 10^3/ul (4.8-10.8)
[2017-03-01 07:11] LABS: CHOL/HDL RATIO 5.9 RATIO
[2017-03-01 07:21] LABS: ALBUMIN 3.3 g/dl (3.3-4.9); ALBUMIN/GLOBULIN RATIO 1.1; BILIRUBIN,INDIRECT 0.8 mg/dl (0-1.1); BILIRUBIN,TOTAL 0.8 mg/dl (0.2-1.3); CALCIUM 8.5 mg/dl (8.4-10.2); CREATININE 1.08 mg/dl (0.61-1.24); POTASSIUM 3.3 mmol/L (3.5-5.1); TOTAL PROTEIN 6.3 g/dl (6.1-8.1)
[2017-03-01 07:41] LABS: MAGNESIUM 1.9 mg/dl (1.7-2.5); PHOSPHORUS 4.5 mg/dl (2.5-4.9)
[2017-03-01] MEDS ORDERED: FUROSEMIDE 40 MG INJ IV SCH (09:00)
[2017-03-01] MEDS: METOPROLOL 50 MG TAB PO SCH ×2 (09:08→20:29)
[2017-03-01] MEDS: FAMOTIDINE 20 MG TAB PO SCH ×2 (09:08→20:28)
[2017-03-01] MEDS: ASPIRIN 81 MG TAB PO SCH (09:08)
[2017-03-01] MEDS: CLOPIDOGREL 75 MG TAB PO SCH (09:08)
[2017-03-01] MEDS: ENOXAPARIN 30 MG/0.3 ML SYG SC SCH (09:09)
[2017-03-01] MEDS: ISOSORBIDE DINITRATE 10 MG TAB PO SCH ×2 (12:43→20:28)
[2017-03-01] MEDS: DIGOXIN 0.125 MG TAB PO SCH (12:43)
[2017-03-01] MEDS: BENAZEPRIL 5 MG TAB PO SCH (12:43)
[2017-03-01] MEDS: FUROSEMIDE 40 MG INJ IV SCH (17:34)
--- NOTE | 2017-03-01 18:02 | PN ---
Date/Time of Note Date/Time of Note DATE: 03/01/17 TIME: 17:58 Assessment/Plan VTE Prophylaxis VTE Prophylaxis Intervention: other Lines/Catheters IV [facility] Urinary Cath still in place: No Assessment/Plan Chief Complaint/Hosp Course 1. Shortness of breath with orthopnea with elevated BNP and chest x-ray evidence of pulmonary edema likely secondary as the patient has been out of medications for almost 1 week. . 2. Mild acute kidney injury, 3. Elevated BNP due to number 1. 4. Hypertension. 5. Hypercholesteremia. 6. History of congestive heart failure both systolic and diastolic. 7. Multivessel coronary artery disease. 8 hypokalemia plan kcl per cardio Problems: Subjective 24 Hr Interval Summary Respiratory: no complaints, shortness of breath (better) Gastrointestinal: no complaints Genitourinary: no complaints Exam/Review of Systems Vital Signs Vitals Vital Signs Date Time Temp Pulse Resp B/P Pulse Ox O2 Delivery O2 Flow Rate FiO2 03/01/17 16:16 65 03/01/17 15:29 97.6 19 132/70 93 03/01/17 08:30 Nasal Cannula 2.0 02/28/17 02:45 40 Intake and Output 02/28/17 02/28/17 03/01/17 15:00 23:00 07:00 Intake Total 500 ml Output Total 1400 ml 700 ml Balance -1400 ml -200 ml Exam Neck: supple Respiratory: clear to auscultation Cardiovascular: regular rate and rhythm Gastrointestinal: bowel sounds (+), soft Extremities: edema (neg) Results Result Diagram: 03/01/17 0605 03/01/17 0605 Results 24 hrs Laboratory Tests Test 03/01/17 06:05 White Blood Count 8.2 Red Blood Count 3.95 L Hemoglobin 10.4 L Hematocrit 34.7 L Mean Corpuscular Volume 87.8 Mean Corpuscular Hemoglobin 26.3 L Mean Corpuscular Hemoglobin Concent 30.0 L Red Cell Distribution Width 15.6 H Platelet Count 280 Mean Platelet Volume 10.1 Neutrophils % 76.9 Lymphocytes % 12.4 L Monocytes % 6.9 Eosinophils % 2.7 Basophils % 0.7 Nucleated Red Blood Cells % 0.0 Neutrophils # (Manual) 6.3 Lymphocytes # 1.0 Monocytes # 0.6 Eosinophils # 0.2 Basophils # 0.1 Nucleated Red Blood Cells # 0.0 Sodium Level 143 Potassium Level 3.3 L Chloride Level 108 Carbon Dioxide Level 26 Anion Gap 12 Blood Urea Nitrogen 35 H Creatinine 1.08 Glucose Level 87 # Calcium Level 8.5 Phosphorus Level 4.5 Magnesium Level 1.9 Total Bilirubin 0.8 Direct Bilirubin 0.00 Indirect Bilirubin 0.8 Aspartate Amino Transf (AST/SGOT) 18 Alanine Aminotransferase (ALT/SGPT) 31 Alkaline Phosphatase 66 Troponin I 0.083 Total Protein 6.3 Albumin 3.3 Globulin 3.00 Albumin/Globulin Ratio 1.10 Triglycerides Level 91 Cholesterol Level 130 LDL Cholesterol, Calculated 90 HDL Cholesterol 22 L Cholesterol/HDL Ratio 5.9 Medications Medications Current Medications Ondansetron HCl (Zofran Inj) 4 mg Q6H PRN IV NAUSEA AND/OR VOMITING; Start 04/06 at 06:30 Acetaminophen (Tylenol Tab) 650 mg Q6H PRN PO PAIN LEVEL 1-3 OR FEVER; Start at 06:30 Acetaminophen/ Hydrocodone Bitart ([place] (5/325)) 1 tab Q6H PRN PO MODERATE PAIN LEVEL 4-6; Start 02/28/17 at 06:30 Docusate Sodium (Colace) 100 mg Q12H PRN PO CONSTIPATION; Start 02/28/17 at 06: 30 Zolpidem Tartrate (Ambien) 5 mg QHS PRN PO SLEEP; Start 02/28/17 at 06:30 Famotidine (Pepcid) 20 mg Q12 PO Last administered on 03/01/17 09:08; Admin Dose 20 MG; Start 02/28/17 at 09:00 Enoxaparin Sodium (Lovenox) 30 mg DAILY SC Last administered on 03/01/17 09:09 ; Admin Dose 30 MG; Start 02/28/17 at 09:00 Aspirin (Aspirin) 81 mg DAILY PO Last administered on 03/01/17 09:08; Admin Dose 81 MG; Start 02/28/17 at 09:00 Atorvastatin Calcium (Lipitor) 20 mg QHS PO Last administered on 02/28/17 21: 00; Admin Dose 20 MG; Start 02/28/17 at 21:00 Clopidogrel Bisulfate (plaVIX) 75 mg DAILY PO Last administered on 03/01/17 09 :08; Admin Dose 75 MG; Start 02/28/17 at 09:00 Metoprolol Tartrate (Lopressor) 50 mg BID PO Last administered on 03/01/17 09: 08; Admin Dose 50 MG; Start 02/28/17 at 09:00 Nitroglycerin (Nitroglycerin (Sl Tab) 0.4 Mg) 0.4 tab [id number] PRN SL CHEST PAIN; Start 02/28/17 at 06:30 Benazepril HCl (Lotensin) 5 mg DAILY PO Last administered on 03/01/17 12:43; Admin Dose 5 MG; Start 03/01/17 at 12:00 Isosorbide Dinitrate (Isordil) 10 mg TID PO Last administered on 03/01/17 12: 43; Admin Dose 10 MG; Start 03/01/17 at 13:00 Digoxin (Digoxin) 0.125 mg DAILY@13 PO Last administered on 03/01/17 12:43; Admin Dose 0.125 MG; Start 03/01/17 at 13:00 Potassium Chloride (Klor-Con 20) 20 meq DAILY PO ; Start 03/02/17 at 09:00; Status JOSE SHULTZ MD Mar 01, 2017 18:02
[2017-03-01] MEDS: ATORVASTATIN 20 MG TAB PO SCH (20:27)
[2017-03-02] VITALS (9 sets, daily range): BP systolic 117–155; BP diastolic 65–77; PULSE 59–67; RESP 15–18
[2017-03-02] MEDS: FUROSEMIDE 40 MG INJ IV SCH ×2 (05:34→17:46)
[2017-03-02 07:22] LABS: ALBUMIN 3.3 g/dl (3.3-4.9); ALBUMIN/GLOBULIN RATIO 1.1; BILIRUBIN,INDIRECT 0.5 mg/dl (0-1.1); BILIRUBIN,TOTAL 0.5 mg/dl (0.2-1.3); CALCIUM 8.8 mg/dl (8.4-10.2); CREATININE 1.19 mg/dl (0.61-1.24); POTASSIUM 3.5 mmol/L (3.5-5.1); TOTAL PROTEIN 6.3 g/dl (6.1-8.1)
[2017-03-02] MEDS: ASPIRIN 81 MG TAB PO SCH (08:15)
[2017-03-02] MEDS: ISOSORBIDE DINITRATE 10 MG TAB PO SCH ×3 (08:15→21:04)
[2017-03-02] MEDS: CLOPIDOGREL 75 MG TAB PO SCH (08:15)
[2017-03-02] MEDS: BENAZEPRIL 5 MG TAB PO SCH (08:15)
[2017-03-02] MEDS: POTASSIUM CHLORIDE (SR) 20 MEQ TAB PO SCH (08:15)
[2017-03-02] MEDS: METOPROLOL 50 MG TAB PO SCH ×2 (08:16→21:00)
[2017-03-02] MEDS: FAMOTIDINE 20 MG TAB PO SCH ×2 (08:16→21:03)
[2017-03-02] MEDS: ENOXAPARIN 30 MG/0.3 ML SYG SC SCH (08:21)
[2017-03-02] MEDS ORDERED: REGADENOSON 0.4 MG/5 ML SYG ONE (09:56)
--- NOTE | 2017-03-02 12:37 | CONS ---
DATE OF ADMISSION: 02/27/2017 DATE OF CONSULTATION: 03/01/2017 REASON FOR CONSULTATION: Shortness of breath. REQUESTING PHYSICIANS: Zeke Valverde MD and Brian Amaro MD, nephrology service. HISTORY OF PRESENT ILLNESS: Mr. Fraser is a 56-year-old male with a history of hypertension, dyslipidemia, coronary artery disease, status post prior PTCA and stent placement to right coronary artery in June 2016 and PTCA alone to PDA given small nature of the vessel December 2016 with known 100 percent occluded circumflex and very distally placed apical stenosis in the LAD who now presents with recurrent complaints of significant dyspnea on exertion. Patient states that in the last week, walking a short distance caused significant shortness of breath causing him stop multiple times. Most recently with a walk with his daughter. Since arriving at the emergency department the patient has had mildly elevated systolic blood pressure 140/50, stable heart rate, afebrile. Patient's labs thus far are notable for negative troponin x2 thus far and creatinine had been mildly elevated down to 1.0. PAST MEDICAL HISTORY: As above in HPI. MEDICATION: Currently in the hospital: 1. Lasix 4 mg IV daily. 2. Lipitor 20 mg at bedtime. 3. Aspirin 81 mg daily. 4. Plavix 75 mg daily. 5. Metoprolol 50 mg p.o. b.i.d. ALLERGIES: IODINE. SOCIAL HISTORY: Remote tobacco. Quit times multiple years. Social ETOH. No illicit drug use. FAMILY HISTORY: No history of sudden cardiac or early CAD. REVIEW OF SYSTEMS: As above in HPI. CONSTITUTIONAL: No fevers, chills. RESPIRATORY: Shortness of breath. CARDIOVASCULAR: Congestive heart failure. History of stents. GASTROINTESTINAL: No vomiting. GENITOURINARY: No hematuria. MUSCULOSKELETAL: Degenerative joint disease. PSYCHIATRIC: Patient has depression. NEUROLOGIC: No documented CVA. PHYSICAL EXAMINATION: VITAL SIGNS: Temperature of 98, blood pressure most recently 140/69, pulse 60, respiratory 19, 96 percent on 2 L. GENERAL: The patient is alert, awake, in no acute distress. NECK: JVP approximately 9 cm of water. LUNGS: Fair air movement throughout with mildly decreased breath sounds at the bases bilaterally. HEART: Regular rate and rhythm. Normal S1, S2. A 1/6 systolic murmur. Non displaced PMI. ABDOMEN: Positive bowel sounds. Soft. EXTREMITIES: No pitting edema. 1+ pulses bilateral posterior tibials. LABORATORY: Most recently from today, sodium 143, potassium 3.3, creatinine 1.0, BUN of 35. Troponin negative x2. LDL at 90, HDL 22. White blood cell count 8.2, hemoglobin 10.4, platelet count of 280. IMAGING STUDIES: As above in HPI. No further imaging studies are reviewed this time. ECG as above in HPI. No further electrocardiograms are reviewed at this time. Which had revealed normal sinus rhythm, rate of 74, normal axis, intervals, left with lateral T-wave inversions. IMPRESSION: 1. Dyspnea on exertion. Assess for congestive heart failure. Assess for acute coronary syndrome versus unstable angina. 2. Cardiomyopathy with decreased left ventricular ejection fraction. Last known ejection fraction approximately 40 percent by echo interpreted this admission with moderate to severe aortic regurgitation and mild tricuspid regurgitation and moderate by pressure half time. 3. Congestive heart failure exacerbation, systolic, acute on chronic. 4. Abnormal electrocardiogram with lateral T-wave inversions. 5. Acute coronary syndrome. 6. History of percutaneous transluminal coronary angioplasty and stent placement, most recently, a percutaneous transluminal coronary angioplasty alone to posterior descending artery January 16, 2017. 7. Hypertension. 8. Dyslipidemia. 9. Renal insufficiency, improving. RECOMMENDATIONS: 1. At this time, would maintain patient on telemetry monitoring to follow rhythm and rate closely. 2. Continue the patient's current beta constanza for control of heart rate and will initiate patient on WES inhibitors for afterload reduction with improvement in creatinine this time. Will continue patient's dual antiplatelet therapy with aspirin and Plavix for stent patency. 3. Complete the patient's workup for myocardial infarction and follow troponin. 4. Check a fasting lipid panel and adjust patient's statin therapy as necessary. 5. Continue patient's gentle Lasix diuresis following strict intake and output, creatinine , diuresis closely. 6. We will place patient in for Lexiscan cardiac stress test if does rule out for myocardial infarction to assess for any new territories of risks for ischemia especially since he is just status post cath approximately 1 month prior with percutaneous transluminal coronary angioplasty. Thank you for allowing me to take part in the care of this patient. I will continue to follow very closely with you. Further recommendations will be made as patient progresses through his inpatient hospital course. Dictated By: Ernst Frost MD /zulema/bryon /Document#: [id number] CC: Zeke Valverde MD; Brian Amaro MD;*[facility]*
[2017-03-02] MEDS: DIGOXIN 0.125 MG TAB PO SCH (13:43)
--- NOTE | 2017-03-02 15:15 | RADRPT ---
PROCEDURE: Lexiscan myocardial perfusion study CLINICAL INDICATION: 56 -year-old patient with coronary artery disease, status post stent placemen t, complaining of chest pain. TECHNIQUE: Lexiscan 0.4 mg intravenously separate acquisition gated myocardial perfusion SPECT usi ng Tc 99m Myoview 30.0 mCi intravenously at stress and Tc-99m Myoview, 10.0 mCi intravenously at res t was performed using the rest/stress sequence. Poststress Myoview SPECT images were obtained in th e supine position. COMPARISON: No prior studies. FINDINGS: Perfusion images reveal a small size moderate in degree predominantly nonreversible perfusion defect in the inferior and inferolateral loja. Lexiscan post stress gated SPECT images demonstrate mild to moderate hypokinesis of the inferior and inferolateral loja. IMPRESSION: 1. The type and distribution of the scintigraphic abnormalities are most consistent with a small si ze predominantly nonreversible perfusion defect in the inferior and inferolateral loja. 2. Mild to moderate hypokinesis of the inferior and inferolateral loja. 3. The left ventricle ejection fraction at stress is 39%. A call report was made to Dr. Frost at 03:14 p.m. on March 02, 2017. RPTAT: HH .Minnie Bess MD, MD Date Time Electronically viewed and signed by .Minnie Bess MD, MD on 03/02/2017 15:15 .L/
--- NOTE | 2017-03-02 17:20 | PN ---
Date/Time of Note Date/Time of Note DATE: 03/02/17 TIME: 17:18 Assessment/Plan VTE Prophylaxis VTE Prophylaxis Intervention: other Lines/Catheters IV Catheter Type (from Nrs): Saline Lock Urinary Cath still in place: No Assessment/Plan Chief Complaint/Hosp Course 1. Shortness of breath with orthopnea with elevated bnp better . 2. Mild acute kidney injury, 3. Elevated BNP due to number 1. 4. Hypertension. 5. Hypercholesteremia. 6. History of congestive heart failure both systolic and diastolic. 7. Multivessel coronary artery disease. 8 s/p lexiscan 9 low ef 39% plan per cardio Problems: Subjective 24 Hr Interval Summary Respiratory: no complaints Cardiovascular: no complaints, No chest pain Gastrointestinal: no complaints Exam/Review of Systems Vital Signs Vitals Vital Signs Date Time Temp Pulse Resp B/P Pulse Ox O2 Delivery O2 Flow Rate FiO2 03/02/17 16:30 98.1 65 16 117/65 94 03/02/17 08:00 Nasal Cannula 2.0 02/28/17 02:45 40 Intake and Output 03/01/17 03/01/17 03/02/17 15:00 23:00 07:00 Intake Total 600 ml 400 ml Output Total 600 ml 700 ml Balance 0 ml -300 ml Exam Respiratory: clear to auscultation Cardiovascular: regular rate and rhythm Gastrointestinal: bowel sounds (+), soft Musculoskeletal: nl extremities to inspection Extremities: No edema Results Result Diagram: 03/01/17 0605 03/02/17 0617 Results 24 hrs Laboratory Tests Test 03/02/17 06:17 Sodium Level 141 Potassium Level 3.5 Chloride Level 103 Carbon Dioxide Level 32 H Anion Gap 10 Blood Urea Nitrogen 31 H Creatinine 1.19 Glucose Level 93 Calcium Level 8.8 Total Bilirubin 0.5 Direct Bilirubin 0.00 Indirect Bilirubin 0.5 Aspartate Amino Transf (AST/SGOT) 17 Alanine Aminotransferase (ALT/SGPT) 31 Alkaline Phosphatase 64 Total Protein 6.3 Albumin 3.3 Globulin 3.00 Albumin/Globulin Ratio 1.10 Medications Medications Current Medications Ondansetron HCl (Zofran Inj) 4 mg Q6H PRN IV NAUSEA AND/OR VOMITING; Start 04/06 at 06:30 Acetaminophen (Tylenol Tab) 650 mg Q6H PRN PO PAIN LEVEL 1-3 OR FEVER; Start at 06:30 Acetaminophen/ Hydrocodone Bitart ([place] (5/325)) 1 tab Q6H PRN PO MODERATE PAIN LEVEL 4-6; Start 02/28/17 at 06:30 Docusate Sodium (Colace) 100 mg Q12H PRN PO CONSTIPATION; Start 02/28/17 at 06: 30 Zolpidem Tartrate (Ambien) 5 mg QHS PRN PO SLEEP; Start 02/28/17 at 06:30 Famotidine (Pepcid) 20 mg Q12 PO Last administered on 03/02/17 08:16; Admin Dose 20 MG; Start 02/28/17 at 09:00 Enoxaparin Sodium (Lovenox) 30 mg DAILY SC Last administered on 03/02/17 08:21 ; Admin Dose 30 MG; Start 02/28/17 at 09:00 Aspirin (Aspirin) 81 mg DAILY PO Last administered on 03/02/17 08:15; Admin Dose 81 MG; Start 02/28/17 at 09:00 Atorvastatin Calcium (Lipitor) 20 mg QHS PO Last administered on 03/01/17 20: 27; Admin Dose 20 MG; Start 02/28/17 at 21:00 Clopidogrel Bisulfate (plaVIX) 75 mg DAILY PO Last administered on 03/02/17 08 :15; Admin Dose 75 MG; Start 02/28/17 at 09:00 Metoprolol Tartrate (Lopressor) 50 mg BID PO Last administered on 03/02/17 08: 16; Admin Dose 50 MG; Start 02/28/17 at 09:00 Nitroglycerin (Nitroglycerin (Sl Tab) 0.4 Mg) 0.4 tab [id number] PRN SL CHEST PAIN; Start 02/28/17 at 06:30 Benazepril HCl (Lotensin) 5 mg DAILY PO Last administered on 03/02/17 08:15; Admin Dose 5 MG; Start 03/01/17 at 12:00 Isosorbide Dinitrate (Isordil) 10 mg TID PO Last administered on 03/02/17 13: 43; Admin Dose 10 MG; Start 03/01/17 at 13:00 Digoxin (Digoxin) 0.125 mg DAILY@13 PO Last administered on 03/02/17 13:43; Admin Dose 0.125 MG; Start 9/11/17 at 13:00 Potassium Chloride (Klor-Con 20) 20 meq DAILY PO Last administered on t 08:15; Admin Dose 20 MEQ; Start 03/02/17 at 09:00 JOSE JESSICA MD Mar 02, 2017 17:20
[2017-03-02] MEDS: ATORVASTATIN 20 MG TAB PO SCH (21:03)
[2017-03-03] VITALS (10 sets, daily range): BP systolic 116–130; BP diastolic 63–68; PULSE 58–80; RESP 16–18
[2017-03-03] MEDS: FUROSEMIDE 40 MG INJ IV SCH ×2 (05:16→08:46)
--- NOTE | 2017-03-03 08:29 | PN ---
Date/Time of Note Date/Time of Note DATE: 03/03/17 TIME: 08:03 Assessment/Plan VTE Prophylaxis VTE Prophylaxis Intervention: LMWH Lines/Catheters IV [facility] Type [facility]from [facility] Saline Lock Urinary Cath still in place: No Subjective 24 Hr Interval Summary Free Text/Dictation DATE OF ADMISSION: 02/27/2017 DATE OF PROGRESS NOTE: 03/02/2017 REASON FOR CONSULTATION: Shortness of breath. HISTORY OF PRESENT ILLNESS: Mr. Fraser is a 56-year-old male with a history of hypertension, dyslipidemia, coronary artery disease, status post prior PTCA and stent placement to right coronary artery in June 2016 and PTCA alone to PDA given small nature of the vessel December 2016 with known 100 percent occluded circumflex and very distally placed apical stenosis in the LAD who now presents with recurrent complaints of significant dyspnea on exertion. Patient states that in the last week, walking a short distance caused significant shortness of breath causing him stop multiple times. Most recently with a walk with his daughter. Since arriving at the emergency department the patient has had mildly elevated systolic blood pressure 140/50, stable heart rate, afebrile. Patient's labs thus far are notable for negative troponin x2 thus far and creatinine had been mildly elevated down to 1.0. PAST MEDICAL HISTORY: As above in HPI. MEDICATIONS: (in the hospita)l: 1. Lasix 4 mg IV daily. 2. Lipitor 20 mg at bedtime. 3. Aspirin 81 mg daily. 4. Plavix 75 mg daily. 5. Metoprolol 50 mg p.o. b.i.d. ALLERGIES: IODINE. SOCIAL HISTORY: Remote tobacco. Quit times multiple years. Social ETOH. No illicit drug use. FAMILY HISTORY: No history of sudden cardiac or early CAD. REVIEW OF SYSTEMS: As above in HPI. CONSTITUTIONAL: No fevers, chills. RESPIRATORY: Shortness of breath. CARDIOVASCULAR: Congestive heart failure. History of stents. GASTROINTESTINAL: No vomiting. GENITOURINARY: No hematuria. MUSCULOSKELETAL: Degenerative joint disease. PSYCHIATRIC: Patient has depression. NEUROLOGIC: No documented CVA. PHYSICAL EXAMINATION: VITAL SIGNS: Temperature of 97.8; bp: 140/69, pulse 60, respiratory 19, SaO2 sat: 96%. GENERAL: The patient is alert, awake, in no acute distress. NECK: JVP approximately 7cm of water. LUNGS: Fair air movement throughout with mildly decreased breath sounds at the bases bilaterally. HEART: Regular rate and rhythm. Normal S1, S2. A 1/6 systolic murmur. Non displaced PMI. ABDOMEN: Positive bowel sounds. Soft, non tender. EXTREMITIES: No pitting edema. 1+ pulses bilateral posterior tibials. LABORATORY: Most recently from today, sodium 143, potassium 3.3, creatinine 1.0, BUN of 35. Troponin negative x2. LDL at 90, HDL 22. White blood cell count 8.2, hemoglobin 10.4, platelet count of 280. IMAGING STUDIES: As above in HPI. No further imaging studies are reviewed this time. ECG: sinus rhythm, rate of 74 BPM, normal axis, with lateral T-wave inversions. IMPRESSION: 1. Dyspnea on exertion. Assess for congestive heart failure. Assess for acute coronary syndrome versus unstable angina. 2. Cardiomyopathy with decreased left ventricular ejection fraction. Last known ejection fraction approximately 40% by echo interpreted this admission with moderate to severe aortic regurgitation and mild tricuspid regurgitation and moderate by pressure half time. 3. Congestive heart failure exacerbation, systolic, acute on chronic, partially compensated in the hospital. 4. Abnormal electrocardiogram with lateral T-wave inversions. 5. Acute coronary syndrome. 6. History of percutaneous transluminal coronary angioplasty and stent placement, most recently, a percutaneous transluminal coronary angioplasty alone to posterior descending artery January 16, 2017. 7. Hypertension. 8. Dyslipidemia. 9. Renal insufficiency, improving. RECOMMENDATIONS: 1. Keep patient on telemetry monitoring to follow rhythm and rate closely. 2. Continue the patient's current beta constanza for control of heart rate and will initiate patient on WSE inhibitors for afterload reduction with improvement in creatinine this time. 3. Continue antiplatelet therapy with aspirin and Plavix for stent patency. 3. Complete the patient's workup for myocardial infarction and follow troponin. 4. Check a fasting lipid panel and adjust patient's statin therapy as necessary. 5. Continue patient's gentle Lasix diuresis following strict intake and output and serum creatinine, gentle diuresis.. 6. Lexiscan nuclear stress test (post cath heart approximately 1 month after percutaneous transluminal coronary angioplasty) already completed (awaiting results). LUZ HANSON MD Exam/Review of Systems Vital Signs Vitals Vital Signs Date Time Temp Pulse Resp B/P Pulse Ox O2 Delivery O2 Flow Rate FiO2 03/03/17 07:45 97.9 52 16 130/64 97 03/03/17 04:17 Nasal Cannula 2.0 02/28/17 02:45 40 Intake and Output 03/02/17 03/02/17 03/03/17 15:00 23:00 07:00 Intake Total 300 ml 500 ml Balance 300 ml 500 ml Results Result Diagram: 03/01/1760403/02/17616 Medications Medications Current Medications Ondansetron HCl (Zofran Inj) 4 mg Q6H PRN IV NAUSEA AND/OR VOMITING; Start 04/06 at 06:30 Acetaminophen (Tylenol Tab) 650 mg Q6H PRN PO PAIN LEVEL 1-3 OR FEVER; Start at 06:30 Acetaminophen/ Hydrocodone Bitart ([place] (5/325)) 1 tab Q6H PRN PO MODERATE PAIN LEVEL 4-6; Start 02/28/17 at 06:30 Docusate Sodium (Colace) 100 mg Q12H PRN PO CONSTIPATION; Start 02/28/17 at 06: 30 Zolpidem Tartrate (Ambien) 5 mg QHS PRN PO SLEEP; Start 02/28/17 at 06:30 Famotidine (Pepcid) 20 mg Q12 PO Last administered on 03/02/17 21:03; Admin Dose 20 MG; Start 02/28/17 at 09:00 Enoxaparin Sodium (Lovenox) 30 mg DAILY SC Last administered on 03/02/17 08:21 ; Admin Dose 30 MG; Start 02/28/17 at 09:00 Aspirin (Aspirin) 81 mg DAILY PO Last administered on 03/02/17 08:15; Admin Dose 81 MG; Start 02/28/17 at 09:00 Atorvastatin Calcium (Lipitor) 20 mg QHS PO Last administered on 03/02/17 21: 03; Admin Dose 20 MG; Start 02/28/17 at 21:00 Clopidogrel Bisulfate (plaVIX) 75 mg DAILY PO Last administered on 03/02/17 08 :15; Admin Dose 75 MG; Start 02/28/17 at 09:00 Metoprolol Tartrate (Lopressor) 50 mg BID PO Last administered on 03/02/17 08: 16; Admin Dose 50 MG; Start 02/28/17 at 09:00 Nitroglycerin (Nitroglycerin (Sl Tab) 0.4 Mg) 0.4 tab [id number] PRN SL CHEST PAIN; Start 02/28/17 at 06:30 Benazepril HCl (Lotensin) 5 mg DAILY PO Last administered on 03/02/17 08:15; Admin Dose 5 MG; Start 03/01/17 at 12:00 Isosorbide Dinitrate (Isordil) 10 mg TID PO Last administered on 03/02/17 21: 04; Admin Dose 10 MG; Start 03/01/17 at 13:00 Digoxin (Digoxin) 0.125 mg DAILY@13 PO Last administered on 03/02/17 13:43; Admin Dose 0.125 MG; Start 03/01/17 at 13:00 Potassium Chloride (Klor-Con 20) 20 meq DAILY PO Last administered on 08:15; Admin Dose 20 MEQ; Start 03/02/17 at 09:00 LUZ HANSON MD Mar 03, 2017 08:26
[2017-03-03] MEDS: POTASSIUM CHLORIDE (SR) 20 MEQ TAB PO SCH (08:45)
[2017-03-03] MEDS: CLOPIDOGREL 75 MG TAB PO SCH (08:45)
[2017-03-03] MEDS: FAMOTIDINE 20 MG TAB PO SCH (08:45)
[2017-03-03] MEDS: BENAZEPRIL 5 MG TAB PO SCH (08:47)
[2017-03-03] MEDS: ISOSORBIDE DINITRATE 10 MG TAB PO SCH ×2 (08:47→12:43)
[2017-03-03] MEDS: METOPROLOL 50 MG TAB PO SCH (08:47)
[2017-03-03] MEDS: ASPIRIN 81 MG TAB PO SCH (08:53)
[2017-03-03] MEDS: ENOXAPARIN 30 MG/0.3 ML SYG SC SCH (09:01)
[2017-03-03] MEDS: DIGOXIN 0.125 MG TAB PO SCH (12:43)
--- NOTE | 2017-03-03 13:08 | CONS ---
Date/Time of Note Date/Time of Note DATE: 03/03/17 TIME: 13:04 Assessment/Plan Assessment/Plan Chief Complaint/Hosp Course IMPRESSION: 1. Dyspnea on exertion. Assess for congestive heart failure. Assess for acute coronary syndrome versus unstable angina. 2. Cardiomyopathy with decreased left ventricular ejection fraction. Last known ejection fraction approximately 40 percent by echo interpreted this admission with moderate to severe aortic regurgitation and mild tricuspid regurgitation and moderate by pressure half time. 3. Congestive heart failure exacerbation, systolic, acute on chronic. 4. Abnormal electrocardiogram with lateral T-wave inversions.-now s/p stress test revealing scar with EF39%. No sig ischemia/EF 40% by echo tis admit 5. Acute coronary syndrome. 6. History of percutaneous transluminal coronary angioplasty and stent placement, most recently, a percutaneous transluminal coronary angioplasty alone to posterior descending artery January 16, 2017. 7. Hypertension. 8. Dyslipidemia. 9. Renal insufficiency-improved Recc: -Tele -Continue asa/plavix -Continue statin -Continue benzapeil/isordil -Decrease dose of metoprolol given low HR -CHange lasix to PO and check CXR -D/C planning with outpatient f/u with me 2 -3 weeks Problems: Consultation Date/Type/Reason Admit Date/Time Feb 27, 2017 at 23:04 Initial Consult Date 03/01/2017 Type of Consultation: cardiology Reason for Consultation MARTIN Referring Provider: ECTOR WHITAKER MD Exam/Review of Systems Vital Signs Vitals Vital Signs Date Time Temp Pulse Resp B/P Pulse Ox O2 Delivery O2 Flow Rate FiO2 03/03/17 12:27 59 03/03/17 11:59 97.6 16 116/63 99 03/03/17 08:00 Nasal Cannula 2.0 02/28/17 02:45 40 Intake and Output 03/02/17 03/02/17 03/03/17 15:00 23:00 07:00 Intake Total 300 ml 500 ml Balance 300 ml 500 ml Exam Review of Systems: CONSTITUTIONAL: No fevers, chills. PULMONARY: No sob CARDIOVASCULAR: No chest pain/palpitations GASTROINTESTINAL: No nausea/vomiting. GENITOURINARY: No hematuria/dysuria. MUSCULOSKELETAL: No myagias/arthalgias. PSYCHIATRIC: The patient denies depression. NEUROLOGIC: No weakness Constitutional: alert Psych: no complaints Eyes: nl conjunctiva ENMT: mucosa pink and moist Neck: jvd (8-9 cm water), supple Respiratory: clear to auscultation Cardiovascular: regular rate and rhythm Gastrointestinal: non-tender, soft Musculoskeletal: muscle tone (normal) Extremities: edema (none) Neurological: other (No focal deficits) Results Result Diagram: 03/01/1760403/02/17616 Medications Medications Current Medications Ondansetron HCl (Zofran Inj) 4 mg Q6H PRN IV NAUSEA AND/OR VOMITING; Start 04/06 at 06:30 Acetaminophen (Tylenol Tab) 650 mg Q6H PRN PO PAIN LEVEL 1-3 OR FEVER; Start at 06:30 Acetaminophen/ Hydrocodone Bitart ([place] (5/325)) 1 tab Q6H PRN PO MODERATE PAIN LEVEL 4-6; Start 02/28/17 at 06:30 Docusate Sodium (Colace) 100 mg Q12H PRN PO CONSTIPATION; Start 02/28/17 at 06: 30 Zolpidem Tartrate (Ambien) 5 mg QHS PRN PO SLEEP; Start 02/28/17 at 06:30 Famotidine (Pepcid) 20 mg Q12 PO Last administered on 03/03/17 08:45; Admin Dose 20 MG; Start 02/28/17 at 09:00 Enoxaparin Sodium (Lovenox) 30 mg DAILY SC Last administered on 03/03/17 09:01 ; Admin Dose 30 MG; Start 02/28/17 at 09:00 Aspirin (Aspirin) 81 mg DAILY PO Last administered on 03/03/17 08:53; Admin Dose 81 MG; Start 02/28/17 at 09:00 Atorvastatin Calcium (Lipitor) 20 mg QHS PO Last administered on 03/02/17 21: 03; Admin Dose 20 MG; Start 02/28/17 at 21:00 Clopidogrel Bisulfate (plaVIX) 75 mg DAILY PO Last administered on 03/03/17 08 :45; Admin Dose 75 MG; Start 02/28/17 at 09:00 Metoprolol Tartrate (Lopressor) 50 mg BID PO Last administered on 03/02/17 08: 16; Admin Dose 50 MG; Start 02/28/17 at 09:00 Nitroglycerin (Nitroglycerin (Sl Tab) 0.4 Mg) 0.4 tab [id number] PRN SL CHEST PAIN; Start 02/28/17 at 06:30 Benazepril HCl (Lotensin) 5 mg DAILY PO Last administered on 03/03/17 08:47; Admin Dose 5 MG; Start 03/01/17 at 12:00 Isosorbide Dinitrate (Isordil) 10 mg TID PO Last administered on 03/03/17 12: 43; Admin Dose 10 MG; Start 03/01/17 at 13:00 Digoxin (Digoxin) 0.125 mg DAILY@13 PO Last administered on 03/03/17 12:43; Admin Dose 0.125 MG; Start 03/01/17 at 13:00 Potassium Chloride (Klor-Con 20) 20 meq DAILY PO Last administered on 08:45; Admin Dose 20 MEQ; Start 03/02/17 at 09:00 YUDY ZEE Mar 03, 2017 13:08
[2017-03-03] MEDS ORDERED: FUROSEMIDE 40 MG TAB PO SCH (18:00)
--- NOTE | 2017-03-03 18:06 | PDOCDIS ---
Discharge Instructions CONDITION Patient Condition: Stable HOME CARE INSTRUCTIONS: Special Diet: low fat ACTIVITY: Activity Restrictions: Slowly Increase Activity FOLLOW UP/APPOINTMENTS Follow-up Plan f/u pcp [address] cardoso [address] jessica renal 2 wks JOSE JESSICA MD Mar 03, 2017 18:06
[2017-03-03] MEDS ORDERED: METO-448 PO (18:09)
[2017-03-03] MEDS ORDERED: DIGO125T PO (18:09)
[2017-03-03] MEDS ORDERED: ISOS10TA2 PO (18:09)
[2017-03-03] MEDS ORDERED: METOPROLOL 25 MG TAB PO SCH (21:00)
--- NOTE | 2017-03-04 04:33 | CARRPT ---
DATE OF PROCEDURE: 03/02/2017 LEXISCAN NUCLEAR STRESS TEST: Under continuous electrocardiographic monitoring, with the patient in semi-supine position, 0.4 mg of regadenoson (Lexiscan) was injected intravenously over a period of 20 seconds. The patient tolerated the injection effects well with no symptoms. Following Lexiscan injection, the determined amount of isotope was injected intravenously and the patient subsequently had myocardial perfusion scan. The patient had no complaints. There were no complications. For the results of the radionuclide myocardial scan, please review the radiologist's report. Dictated By: LUZ HANSON MD /[email or web address]/meryl /Document#: [id number] ANAHY
--- NOTE | 2017-03-04 11:11 | RADRPT ---
Vent Rate: 62 bpm RR Interval: 0 msec MN Interval: 186 msec QRS Duration: 104 msec QT Interval: 480 msec QTC Interval: 487 msec P-R-T Trail: 35 - 20 - 0 degrees Normal sinus rhythm Possible Left atrial enlargement Left ventricular hypertrophy with repolarization abnormality Prolonged QT Abnormal ECG Consider Left Main Stenosis Electronically Signed By: Artis Francis [id number]
--- NOTE | 2017-03-04 12:56 | QN ---
Documentation Comment [id number] JOSE JESSICA MD Mar 04, 2017 12:56
--- NOTE | 2017-03-04 22:33 | DS ---
DATE OF ADMISSION: 02/27/2017 DATE OF DISCHARGE: 03/03/2017 HOSPITAL COURSE: The patient is a 56-year-old male who was admitted with short of breath. The patient was seen for pain consultation and underwent 2D echo that showed ejection fraction 40 percent, abnormal diastolic function. The patient had 2D that showed small size nonreversible perfusion defect, mild to moderate hypokinesis, and left ejection fraction 39 percent. The patient had hematocrit 34.7. The patient has BMP stable. The patient was cleared to be discharged home in a stable condition. DISCHARGE DIAGNOSES: 1. Cardiomyopathy, ejection fraction 40 percent. 2. Congestive heart failure. 3. Abnormal electrocardiogram. 4. Acute coronary syndrome. 5. History of percutaneous transluminal coronary angioplasty (PTCA) and stent placement. 6. Hypertension. 7. Dyslipidemia. 8. Renal insufficiency. 9. Hypokalemia. DISCHARGE MEDICATIONS: To continue on digoxin, isosorbide, metoprolol, Tylenol, aspirin, Lipitor, Plavix, Lasix, lisinopril, nitroglycerin, and potassium. FOLLOWUP: Followup with PCP and Cardiology as an outpatient. Dictated By: Brian Amaro MD /[email or web address]/jose /Document#: [id number]
== END 2017-03-03 20:20 | disposition home or self-care (01) | DRG 292 ==
LOC: E/R 21:37 → TEL 23:04
PROVIDERS: ADMIT Internal Medicine; ATTEND Internal Medicine
PROC: C22G1ZZ Tomographic (Tomo) Nuclear Medicine Imaging of Myocardium using Technetium 99m (Tc-99m) (ICD-10-PCS; principal; 2017-03-02)
PROC: 4A02XM4 Measurement of Cardiac Total Activity, External Approach (ICD-10-PCS; 2017-03-02)
PROC: 3E033HZ Introduction of Radioactive Substance into Peripheral Vein, Percutaneous Approach (ICD-10-PCS; 2017-03-02)
DX: I11.0 Hypertensive heart disease with heart failure (principal); N17.9 Acute kidney failure, unspecified; I24.9 Acute ischemic heart disease, unspecified; I42.9 Cardiomyopathy, unspecified; I25.10 Atherosclerotic heart disease of native coronary artery without angina pectoris; I50.43 Acute on chronic combined systolic (congestive) and diastolic (congestive) heart failure; E78.5 Hyperlipidemia, unspecified; D64.9 Anemia, unspecified; I25.2 Old myocardial infarction; Z98.61 Coronary angioplasty status; E78.00 Pure hypercholesterolemia, unspecified; Z87.891 Personal history of nicotine dependence; Z82.49 Family history of ischemic heart disease and other diseases of the circulatory system; E87.6 Hypokalemia; Z95.5 Presence of coronary angioplasty implant and graft
CPT/HCPCS: 36415; 71010; 78452; 80053; 80061; 81003; 83690; 83735; 83880; 84100; 84484; 85025; 93005; 93017; 93306; 94660; 96372; 96374; 96375; A9500; A9505; J1650; J1940; J2785

== ENCOUNTER 2017-04-12 11:54 | Day surgery (SDC) | payer OTHER ==
[~2017-04-12] VITALS: Ht 172.7 cm; Wt 77.9 kg
[~2017-04-12 11:54] MED LIST changes: -ASPI325T32 PO; -CLOP75TA27 PO; +DIGO125T PO; +ISOS10TA2 PO; -METO-429 PO; +METO-448 PO; +NITR0.4T32 SL; -NITR0.4T6 SL
[2017-04-12 12:45] VITALS: Ht 172.7 cm; Wt 77.9 kg
[2017-04-12] MEDS ORDERED: MIDAZOLAM 1 MG/ML 2 ML INJ ONE (13:15)
[2017-04-12] MEDS ORDERED: ETOMIDATE 20 MG INJ ONE (13:15)
[2017-04-12] MEDS ORDERED: LIDOCAINE 2% (SDV) 5 ML INJ ONE (13:15)
--- NOTE | 2017-04-12 13:45 | OPPN ---
Date/Time of Note Date/Time of Note DATE: 04/12/17 TIME: 13:40 Proc Note GI Procedure Date 04/12/17 Indication: diagnostic Pre-procedure Diagnosis occult gi bleed r/o pud vs neoplasm of gi tract Post-procedure Diagnosis erosive distal esophagitis diffuse gastritis mod diverticulosis mod hemorrhoids small polyp prox asg colon no biopsied Procedure Performed: Endoscopy, Colonoscopy Surgeon see signature line Workday Manager none Anesthesia Type: MAC Anesthesiologist: RITCHIE SCHULTZ Tourniquet Time none EBL none Transfusion required none Biopsy 1: none Grafts/Implants none Tubes/Drains none Complication(s) none Procedure Description egd and colonoscopy done erosive distal esophagitis mod gASTRITIS mod diverticulosis mod hemorrhoids MITALI OTOOLE MD Apr 12, 2017 13:45
[2017-04-12] MEDS ORDERED: hydrALAzine 20 MG INJ ONE (14:00)
[2017-04-12] MEDS ORDERED: ALBUTEROL 0.083% (NEB) 2.5 MG/3 ML AMP HHN STA (14:03)
[2017-04-12] MEDS ORDERED: ALBUTEROL 0.083% (NEB) 2.5 MG/3 ML AMP ONE (14:05)
[2017-04-12 14:45] VITALS: BP 167/70; RESP 14
--- NOTE | 2017-04-13 07:24 | GILP ---
DATE OF PROCEDURE: PROCEDURE: Esophagogastroduodenoscopy. PREOPERATIVE DIAGNOSIS: Patient presenting with history of guaiac positive stools, rule out upper p eptic ulcer disease, esophagitis, etc. POSTOPERATIVE DIAGNOSES: 1. Moderate degree of erosive esophagitis distally. 2. Moderate degree of diffuse gastritis. After the informed written consent was obtained, the patient was put on left lateral side. Intraven ous anesthesia was given by nurse coke workerLuci. When the patient became somnolent, the Sravanthi mpus video upper endoscope was introduced into the oropharynx, then into the esophagus. Esophagus s howed evidence of moderate degree of erosions indicating moderate degree of erosive esophagitis. En doscope at this time was advanced into the stomach. Stomach showed evidence of a moderate degree of gastritis in a diffuse fashion. Biopsy was done from the antrum, the lesser curvature and the fund us to rule out H. pylori infection. Scope at this time was advanced into the duodenum. Entire duod enum appeared normal, no additional abnormalities detected and the procedure was terminated. Biopsi es were not obtained because the patient is on Plavix. Continue Protonix 40 mg p.o. b.i.d. or omepr azole 40 mg p.o. b.i.d. Dictated By: MITALI GREWAL/FERNY Conf#: [id number] DID#: [id number]
--- NOTE | 2017-04-13 07:26 | GILP ---
DATE OF PROCEDURE: PROCEDURE: Colonoscopy. PREOPERATIVE DIAGNOSIS: Patient presenting with history of occult gastrointestinal bleeding. Patie nt has been on Plavix, rule out colorectal neoplasm, arteriovenous malformation, diverticulosis. POSTOPERATIVE DIAGNOSES: 1. Moderate degree of diverticulosis. 2. Hemorrhoids, moderate degree. 3. Small polyp noted in the proximal ascending colon. No biopsy was done because the patient is on Plavix. DESCRIPTION OF PROCEDURE: After informed written consent was obtained, the patient was asked to lie on the left lateral side. Intravenous anesthesia was given by nurse supervisor pre waveLuci. When t he patient became somnolent, the Olympus video colonoscope was introduced into the rectum and scope was advanced all the way to the cecum. Entire colon was examined thoroughly. Suboptimal preparatio n was noted. Significant diverticulosis noted all along the colon. There is evidence of a moderate degree of hemorrhoids noted. A small polyp was noted in the proximal ascending colon. This was no t biopsied because the patient has been on Plavix. On the way out, a moderate degree of internal an d external hemorrhoids were noted. At this time, procedure was terminated. PLAN: Recommend follow the patient closely. Dictated By: MITALI GREWAL/FERNY Conf#: [id number] DID#: [id number]
== END 2017-04-12 15:27 | disposition home or self-care (01) ==
LOC: GIL 11:54
PROVIDERS: ATTEND Internal Medicine Gastroenterology
DX: K63.5 Polyp of colon (principal); K57.30 Diverticulosis of large intestine without perforation or abscess without bleeding; K64.8 Other hemorrhoids; K64.4 Residual hemorrhoidal skin tags; K20.9 Esophagitis, unspecified; K29.70 Gastritis, unspecified, without bleeding; Z79.02 Long term (current) use of antithrombotics/antiplatelets; I25.10 Atherosclerotic heart disease of native coronary artery without angina pectoris; Z95.5 Presence of coronary angioplasty implant and graft; E78.5 Hyperlipidemia, unspecified; I11.0 Hypertensive heart disease with heart failure; I50.9 Heart failure, unspecified; Z86.73 Personal history of transient ischemic attack (TIA), and cerebral infarction without residual deficits; Z88.1 Allergy status to other antibiotic agents
CPT/HCPCS: 43235; 45378; 94664; J0360; J2250; Z7610

== ENCOUNTER 2017-05-01 18:44 | Inpatient (IN) | payer OTHER ==
[~2017-05-01] VITALS: Ht 172.7 cm; Wt 80.3 kg
[2017-05-01] MEDS ORDERED: ASPIRIN 81 MG TAB PO ONE (20:00)
[2017-05-01] MEDS ORDERED: FUROSEMIDE 40 MG INJ IV ONE (20:00)
--- NOTE | 2017-05-01 20:27 | ERD ---
ER Documentation Chief Complaint Chief Complaint PT IN WITH C/O "I HAVE BEEN FEELING LIKE I CAN'T BREATH FOR THE LAST 4 DAYS HPI 57-year-old man with a history of [place], CAD, hypertension, CHF presents with shortness of breath and dyspnea on exertion with orthopnea 4 days. He states he has been using his medications as prescribed. Patient denies calf or leg swelling, no fevers or chills, no cough, no chest pain, no vomiting or diarrhea. ROS All systems reviewed and are negative except as per history of present illness. Medications Home Meds Active Scripts Metoprolol Tartrate* (Lopressor*) 25 Mg Tab, 25 MG PO BID for 28 Days, TAB Prov:JOSE JESSICA MD 03/03/17 Isosorbide Dinitrate* (Isordil*) 10 Mg Tablet, 10 MG PO TID for 28 Days, TAB Prov:JOSE JESSICA MD 03/03/17 Digoxin* (Digitek*) 125 Mcg Tablet, 0.125 MG PO DAILY@13 for 28 Days, TAB Prov:JOSE JESSICA MD 03/03/17 Potassium Chloride* (Potassium Chloride*) 8 Meq Capsule.er, 8 MEQ PO BID for 30 Days, CAP Prov:HARJEET DELANEY 01/16/17 Furosemide* (Furosemide*) 40 Mg Tablet, 40 MG PO DAILY@06 for 30 Days, TAB Prov:HARJEET DELANEY 01/16/17 Clopidogrel Bisulfate (Clopidogrel) 75 Mg Tablet, 75 MG PO DAILY for 30 Days, TAB Prov:HARJEET DELANEY 01/16/17 Reported Medications Acetaminophen (Acetaminophen) 325 Mg Tablet, 325 MG PO Q6 Y for MILD PAIN LEVEL 1-3, TAB 01/15/17 Lisinopril* (Lisinopril*) 10 Mg Tablet, 10 MG PO DAILY, #30 TAB 01/15/17 Aspirin* (Aspirin* Chew) 81 Mg Tab.chew, 81 MG PO DAILY, TAB.CHEW 01/15/17 Nitroglycerin* (Nitroglycerin* SL) 0.4 Mg Tab.subl, 0.4 MG SL Q5MIN Y for CHEST PAIN, #50 BOTTLE 07/21/16 Atorvastatin Calcium* (Atorvastatin Calcium*) 20 Mg Tablet, 20 MG PO QHS, #30 TAB 07/13/16 Allergies Allergies: Coded Allergies: iodine (Verified Allergy, Unknown, FAINT, 04/12/17) PMhx/Soc Hypertension, previous [place], CHF History of Surgery: Yes (STENT PLACED -HEART STENT, ANKLE SX.) Anesthesia Reaction: No Hx Neurological Disorder: Yes (STROKE 2011) Hx Respiratory Disorders: Yes (SOB WHEN WALKING) Hx Cardiac Disorders: Yes (HEART ATTACK 2017, CHF) Hx Psychiatric Problems: No Hx Miscellaneous Medical Probl: Yes (HTN, CHOLESTEROL) Hx Alcohol Use: Yes Hx Substance Use: Yes (COCAINE) Hx Tobacco Use: Yes FmHx Family History: No diabetes Physical Exam Vitals Vital Signs Date Time Temp Pulse Resp B/P Pulse Ox O2 Delivery O2 Flow Rate FiO2 05/01/17 20:10 66 100 35 05/01/17 20:00 Rebreather 10 05/01/17 19:08 97.4 72 20 171/93 98 Physical Exam GENERAL: Well-developed, well-nourished, well-hydrated, in no apparent distress , looks nontoxic in appearance HEENT: Moist mucous membranes, pink conjunctiva, no cervical spine tenderness or step-off deformities, no goiter, no jaundice or icterus, extraocular movements intact without pain. No submandibular induration, and no pharyngeal erythema NEURO: Alert and oriented 3, cranial nerves II through XII intact bilaterally, pupils equal round reactive to light, no focal deficits or facial asymmetry, sensation intact distally Strength 5/5 in upper and lower extremities bilaterally CARDIAC: Regular rate and rhythm, no murmurs rubs or gallops LUNGS: Bibasilar crackles, no wheezing or stridor ABDOMEN: Soft nontender, no guarding, no rigidity, no rebound, no psoas sign no obturator sign. Normoactive bowel sounds SKIN: Warm and dry to touch, no abrasions, contusions, or hematomas, no lacerations, no ecchymosis, no target lesions, and without ulcers EXTREMITIES: No clubbing cyanosis or edema, calves are bilaterally symmetrical, no Homans sign, no popliteal cord sign. Distal pulses equal and bilateral PSYCH: Normal affect without agitation or irritability Result Diagram: 05/01/171999 Results 24 hrs Laboratory Tests Test 05/01/17 20:00 White Blood Count 7.910^3/ul Red Blood Count 4.0610^6/ul Hemoglobin 10.2g/dl Hematocrit 33.8% Mean Corpuscular Volume 83.3fl Mean Corpuscular Hemoglobin 25.1pg Mean Corpuscular Hemoglobin Concent 30.2g/dl Red Cell Distribution Width 17.2% Platelet Count 87265^3/UL Mean Platelet Volume 10.5fl Neutrophils % 76.0% Lymphocytes % 13.0% Monocytes % 8.1% Eosinophils % 1.8% Basophils % 0.8% Nucleated Red Blood Cells % 0.3/100WBC Neutrophils # 6.010^3/ul Lymphocytes # 1.010^3/ul Monocytes # 0.610^3/ul Eosinophils # 0.110^3/ul Basophils # 0.110^3/ul Nucleated Red Blood Cells # 0.010^3/ul Current Medications Medications (Trade) Dose Ordered Sig/Estelita Route PRN Reason Start Time Stop Time Status Last Admin Dose Admin Aspirin (Aspirin) 324 mg ONCE ONCE PO 05/01/17 20:00 05/01/17 20:02 DC 05/01/17 20:18 Furosemide (Lasix) 60 mg ONCE ONCE IV 05/01/17 20:00 05/01/17 20:02 DC 05/01/17 20:18 Enalaprilat (Vasotec Iv) 1.25 mg ONCE ONCE IV 05/01/17 20:30 05/01/17 20:31 DC 05/01/17 20:34 Procedures/MDM IV line was established patient was placed on kinesiotherapist rhythm strip revealed a sinus rhythm at about 70 bpm with upright P and T waves. Patient was afebrile EKG performed, read by me revealed a normal sinus rhythm at 73 bpm, normal axis , narrow QRS complex, T-wave inversions in precordial leads, diffuse ST depressions. No ST elevations. Patient was dyspneic and required immediate BiPAP therapy. I administered aspirin 324 mg p.o. for cardioprotective measures, furosemide 60 mg IV 1, and enalapril 1.25 mg IV for hypertension. CBC and electrolytes were normal, liver function tests are normal, troponin was negative, BNP was elevated. Patient will be admitted to telemetry setting for continued medical management cardiology consultation. Departure Diagnosis: Primary Impression: CHF (congestive heart failure) Congestive heart failure type: systolic Congestive heart failure chronicity: acute Qualified Code: I50.21 - Acute systolic congestive heart failure Condition: CE Ochoa MD May 01, 2017 20:27
[2017-05-01] MEDS ORDERED: ENALAPRILAT 1.25 MG INJ IV ONE (20:30)
--- NOTE | 2017-05-01 20:37 | RADRPT ---
PROCEDURE: XR Chest. CLINICAL INDICATION: shortness of breath TECHNIQUE: Single portable view of the chest was obtained COMPARISON: 02/27/17 FINDINGS: There is moderate cardiomegaly. There is mild pulmonary vascular congestion. There are bilateral perihilar and lower lobe infiltrat es.. There is no pneumothorax. The bones and soft tissues are unremarkable. RPTAT: AA IMPRESSION: Moderate cardiomegaly with mild pulmonary vascular congestion. .Christian Gonzalez MD, MD Date Time Electronically viewed and signed by .Christian Gonzalez MD, MD on 05/01/2017 20:37 .S/
[2017-05-01 20:50] LABS: BASOPHIL # 0.1 10^3/ul (0.0-0.1); BASOPHILS % 0.8 % (0.0-2.0); EOSINOPHILS # 0.1 10^3/ul (0.0-0.5); EOSINOPHILS % 1.8 % (0.0-7.0); HEMATOCRIT 33.8 % (42.0-52.0); HEMOGLOBIN 10.2 g/dl (14.0-18.0); MEAN CORPUSCULAR HEMOGLOBIN 25.1 pg (29.0-33.0); MEAN CORPUSCULAR HGB CONC 30.2 g/dl (32.0-37.0); MEAN CORPUSCULAR VOLUME 83.3 fl (82.0-101.0); MEAN PLATELET VOLUME 10.5 fl (7.4-10.4); MONOCYTE # 0.6 10^3/ul (0.3-0.9); MONOCYTES % 8.1 % (0.0-11.0); NUCLEATED RED BLOOD CELLS% 0.3 /100WBC (0.0-0.0); PLATELET COUNT 232 10^3/UL (140-415); RED BLOOD COUNT 4.06 10^6/ul (4.70-6.10); RED CELL DISTRIBUTION WIDTH 17.2 % (11.5-14.5); WHITE BLOOD COUNT 7.9 10^3/ul (4.8-10.8)
[2017-05-01 21:07] LABS: ALBUMIN 3.5 g/dl (3.3-4.9); ALBUMIN/GLOBULIN RATIO 1.12; CALCIUM 8.4 mg/dl (8.4-10.2); CREATININE 1.47 mg/dl (0.61-1.24); POTASSIUM 4.4 mmol/L (3.5-5.1); TOTAL PROTEIN 6.6 g/dl (6.1-8.1)
[2017-05-01 21:19] LABS: TROPONIN-I 0.014 ng/ml (0.00-0.12)
[2017-05-01 22:25] VITALS: TEMP 97.7
[2017-05-01 23:33] VITALS: Ht 172.7 cm; Wt 80.3 kg
[2017-05-02] VITALS (13 sets, daily range): BP systolic 148–177; BP diastolic 70–84; PULSE 59–73; RESP 17–20
[2017-05-02] MEDS ORDERED: morphine 2 MG INJ IV PRN
[2017-05-02] MEDS ORDERED: ALBUTEROL/IPRATROPIUM (NEB) 3 ML AMP HHN PRN
[2017-05-02] MEDS ORDERED: LORAZEPAM 1 MG TAB PO PRN (01:30)
[2017-05-02] MEDS: ZOLPIDEM 5 MG TAB PO PRN (01:51)
[2017-05-02] MEDS: hydrALAzine 20 MG INJ IV PRN ×2 (01:51→08:14)
[2017-05-02 03:17] LABS: TROPONIN-I 0.016 ng/ml (0.00-0.12)
[2017-05-02 03:23] LABS: CK-MB 0.64 ng/ml (0.0-2.4)
[2017-05-02 03:52] LABS: AADO2 Arterial 63.8 mmHg (7.0-24.0); Allen Test ACCEPTAB; Arterial Base Excess -1.6 mmol/L (-3.0-3); Arterial COHb 0.1 % (0.0-3.0); Arterial Fraction of Oxyhgb 96.8 % (93.0-99.0); Arterial HCO3 22.7 mmol/L (22.0-26.0); Arterial MetHb 0.2 % (0.0-1.5); Arterial Total Hemglobin 10.7 g/dl (12.0-18.0); MODE NASAL CANNULA
[2017-05-02 09:39] LABS: CK-MB 0.58 ng/ml (0.0-2.4); TROPONIN-I 0.019 ng/ml (0.00-0.12)
[2017-05-02] MEDS: FUROSEMIDE 40 MG INJ IV SCH (11:40)
--- NOTE | 2017-05-02 11:40 | HP ---
Date/Time of Note Date/Time of Note DATE: 05/02/17 TIME: 11:40 Assessment/Plan VTE Prophylaxis VTE Prophylaxis Intervention: ambulation Lines/Catheters IV [facility]from [facility] Saline Lock Urinary Cath still in place: No Assessment/Plan Chief Complaint/Hosp Course 1. CHF exacerbation. 2. Hyperlipidemia. 3. History of coronary artery disease status post LHC with diffuse coronary artery disease, right circumflex and left circumflex right coronary artery now status post PTCA in 12/2016. 4. Congestive heart failure both systolic and diastolic. 5. Anemia. 6. Hypertension, controlled. Problems: Assessment/Plan 1. telemetry monitoring 2. dr Majano for Cardiology consult 3. restart home meds 4. Bumex TID IV and furosemide 5. continue BIPAP at night, pt might haVE SLEEP APNEA HPI/ROS Admit Date/Time Admit Date/Time May 01, 2017 at 21:04 Hx of Present Illness This is a 57-year-old male with a past medical history of hypertension, hypercholesteremia, history of coronary artery disease status post left heart catheterization with diffuse coronary artery disease of the RCA and left circumflex status post PTCA in 12/2016, cardiomyopathy. He presented to the emergency department complaining of shortness of breath for 4 days. According to the patient he takes medications as prescribed at home. He was seeing by his primary care provider regularly. Patient denies calf or leg swelling, no fevers or chills, no cough, no chest pain, no vomiting or diarrhea. The patient had orthopnea. Denied any chest pain, any lower extremity edema. Denied any PND. Denied any cough. Chest x-ray showed pulmonary edema and BNP showed [id number]. The patient received Lasix 60 mg IV x1 and was admitted for further management to the telemetry floor. ROS Constitutional: improved, no complaints Eyes: no complaints ENT: no complaints Cardiovascular: orthopenea, No lightheadedness, No no complaints, No other, No palpitations, No paroxysmal nocturnal dyspnea Musculoskeletal: no complaints Skin: no complaints PMH/Family/Social Past Medical History 1. Hypertension. 2. Hyperlipidemia. 3. History of coronary artery disease status post LHC with diffuse coronary artery disease, right circumflex and left circumflex right coronary artery now status post PTCA in 12/2016. 4. Congestive heart failure both systolic and diastolic. 5. Anemia. Past Surgical History Past Surgical Hx: no surgical history Family History Significant Family History: no pertinent family hx Social History Alcohol Use: none Smoking Status: Former smoker Drug Use: none Exam/Review of Systems Vital Signs Vitals Vital Signs Date Time Temp Pulse Resp B/P Pulse Ox O2 Delivery O2 Flow Rate FiO2 05/02/17 08:00 72 05/02/17 07:57 97.7 18 171/78 91 05/02/17 04:06 2.0 05/02/17 00:00 Nasal Cannula 05/01/17 20:10 35 Intake and Output 05/01/17 05/01/17 05/02/17 14:59 22:59 06:59 Intake Total 400 ml Output Total 400 ml Balance -400 ml 400 ml Exam Constitutional: alert, oriented ENMT: nl external ears & nose Neck: supple Respiratory: diminished breath sounds, other (congested) Cardiovascular: regular rate and rhythm Gastrointestinal: soft Genitourinary - Male: nl penis Extremities: normal pulses Labs Result Diagram: 05/01/17199905/01/171999 Medications Medications Current Medications Morphine Sulfate (morphine) 2 mg Q4H PRN IV pain; Start 05/02/17 at 00:00 Zolpidem Tartrate (Ambien) 10 mg HS PRN PO INSOMNIA Last administered on 01:51; Admin Dose 10 MG; Start 05/02/17 at 01:30 Lorazepam (Ativan) 1 mg Q6H PRN PO ANXIETY; Start 05/02/17 at 01:30 Hydralazine HCl (Apresoline) 10 mg Q6H PRN IV SBP > 160 Last administered on 08:14; Admin Dose 10 MG; Start 05/02/17 at 01:30 Furosemide (Lasix) 40 mg DAILY IV ; Start 05/02/17 at 12:00 HARJEET DELANEY May 02, 2017 11:40
[2017-05-02] MEDS ORDERED: NACL 0.9% 3 ML SYG IV SCH (12:00)
[2017-05-02] MEDS ORDERED: NITROGLYCERIN (SL) 0.4 MG TAB SL PRN (12:00)
[2017-05-02] MEDS ORDERED: ACETAMINOPHEN 325 MG TAB PO PRN (12:00)
[2017-05-02] MEDS: CLOPIDOGREL 75 MG TAB PO SCH (12:31)
[2017-05-02] MEDS: ASPIRIN 81 MG TAB PO SCH (12:31)
[2017-05-02] MEDS: LISINOPRIL 10 MG TAB PO SCH (12:32)
[2017-05-02] MEDS ORDERED: BUMETANIDE 1 MG INJ IV SCH (13:00)
[2017-05-02] MEDS ORDERED: ISOSORBIDE DINITRATE 10 MG TAB PO SCH ×2 (13:00→21:00)
[2017-05-02] MEDS: POTASSIUM CHLORIDE (SR) 8 MEQ CAP PO SCH (14:06)
--- NOTE | 2017-05-02 15:57 | CONS ---
Date/Time of Note Date/Time of Note DATE: 05/02/17 TIME: 15:57 Assessment/Plan Assessment/Plan Additional Assessment/Plan 57 yo with CAD, CHF EF 40% - r/o ID - con't diuresis and afterload reduction - full note dictated thank you Consultation Date/Type/Reason Admit Date/Time May 01, 2017 at 21:04 Initial Consult Date Exam/Review of Systems Vital Signs Vitals Vital Signs Date Time Temp Pulse Resp B/P Pulse Ox O2 Delivery O2 Flow Rate FiO2 05/02/17 15:52 97.9 67 18 153/70 94 05/02/17 08:00 Nasal Cannula 3.0 05/01/17 20:10 35 Intake and Output 05/01/17 05/01/17 05/02/17 15:00 23:00 07:00 Intake Total 400 ml Output Total 400 ml Balance -400 ml 400 ml Results Result Diagram: 05/01/17199905/01/171999 Results 24 hrs Laboratory Tests Test 05/01/17 20:00 05/02/17 02:00 05/02/17 02:17 05/02/17 08:44 White Blood Count 7.9 Red Blood Count 4.06 L Hemoglobin 10.2 L Hematocrit 33.8 L Mean Corpuscular Volume 83.3 Mean Corpuscular Hemoglobin 25.1 L Mean Corpuscular Hemoglobin Concent 30.2 L Red Cell Distribution Width 17.2 H Platelet Count 232 Mean Platelet Volume 10.5 H Neutrophils % 76.0 Lymphocytes % 13.0 L Monocytes % 8.1 Eosinophils % 1.8 Basophils % 0.8 Nucleated Red Blood Cells % 0.3 H Neutrophils # 6.0 Lymphocytes # 1.0 Monocytes # 0.6 Eosinophils # 0.1 Basophils # 0.1 Nucleated Red Blood Cells # 0.0 Sodium Level 143 Potassium Level 4.4 Chloride Level 108 Carbon Dioxide Level 21 Anion Gap 18 H Blood Urea Nitrogen 34 H Creatinine 1.47 H Glucose Level 110 Calcium Level 8.4 Total Bilirubin 1.0 Direct Bilirubin 0.00 Indirect Bilirubin 1.0 Aspartate Amino Transf (AST/SGOT) 31 Alanine Aminotransferase (ALT/SGPT) 41 Alkaline Phosphatase 74 Troponin I 0.014 0.016 0.019 B-Type Natriuretic Peptide 50046 H Total Protein 6.6 Albumin 3.5 Globulin 3.10 Albumin/Globulin Ratio 1.12 Lipase 184 Blood Gas Specimen Source Blood arterial Arterial Blood Date Drawn 05/02/2017 3:36:00 AM Arterial Blood pH (Temp corrected) 7.408 Arterial Blood pCO2 (Temp correct) 36.8 Arterial Blood pO2 (Temp corrected) 106.9 H Arterial Blood HCO3 22.7 Arterial Blood Base Excess -1.6 Arterial Blood Oxygen Saturation 97.1 Jayy Test ACCEPTAB Arterial Blood Gas Puncture Site Right Radial Arterial Blood Carboxyhemoglobin 0.1 Arterial Blood Methemoglobin 0.2 Blood Gas A-a O2 Differential 63.8 H Oxyhemoglobin Percent 96.8 Total Hemoglobin 10.7 L Blood Gas Temperature 37.0 Blood Gas Modality NASAL CANNULA FiO2 30.0 Blood Gas Notified Whom RH Blood Gas Notified Time 05/02/2017 3:47:00 AM Creatine Kinase 36 30 Creatine Kinase Index 1.8 1.9 Creatinine Kinase MB (Mass) 0.64 0.58 Medications Medications Current Medications Morphine Sulfate (morphine) 2 mg Q4H PRN IV pain; Start 05/02/17 at 00:00 Zolpidem Tartrate (Ambien) 10 mg HS PRN PO INSOMNIA Last administered on 01:51; Admin Dose 10 MG; Start 05/02/17 at 01:30 Lorazepam (Ativan) 1 mg Q6H PRN PO ANXIETY; Start 05/02/17 at 01:30 Hydralazine HCl (Apresoline) 10 mg Q6H PRN IV SBP > 160 Last administered on 08:14; Admin Dose 10 MG; Start 05/02/17 at 01:30 Furosemide (Lasix) 40 mg DAILY IV Last administered on 05/02/17 11:40; Admin Dose 40 MG; Start 05/02/17 at 12:00 Bumetanide (Bumex) 0.5 mg TID IV Last administered on 05/02/17 14:06; Admin Dose 0.5 MG; Start 05/02/17 at 13:00; Stop 05/04/17 at 09:01 Acetaminophen (Tylenol Tab) 325 mg Q6H PRN PO MILD PAIN LEVEL 1-3; Start 05/02 at 12:00 Aspirin (Aspirin) 81 mg DAILY PO Last administered on 05/02/17 12:31; Admin Dose 81 MG; Start 05/02/17 at 12:00 Atorvastatin Calcium (Lipitor) 20 mg QHS PO ; Start 05/02/17 at 21:00 Clopidogrel Bisulfate (plaVIX) 75 mg DAILY PO Last administered on 05/02/17 12:31; Admin Dose 75 MG; Start 05/02/17 at 12:00 Isosorbide Dinitrate (Isordil) 10 mg TID PO Last administered on 05/02/17 14: 08; Admin Dose 10 MG; Start 05/02/17 at 13:00 Lisinopril (Zestril) 10 mg DAILY PO Last administered on 05/02/17 12:32; Admin Dose 10 MG; Start 05/02/17 at 12:00 Metoprolol Tartrate (Lopressor) 25 mg BID PO ; Start 05/02/17 at 21:00 Nitroglycerin (Nitroglycerin (Sl Tab) 0.4 Mg) 0.4 tab TITRATE PRN SL CHEST PAIN ; Start 05/02/17 at 12:00 Potassium Chloride (Micro-K) 8 meq BID PO Last administered on 05/02/17 14:06 ; Admin Dose 8 MEQ; Start 05/02/17 at 12:00 ANDERSON SEN MD May 02, 2017 15:57
[2017-05-02] MEDS: ATORVASTATIN 20 MG TAB PO SCH (22:03)
[2017-05-02] MEDS: METOPROLOL 25 MG TAB PO SCH (22:04)
[2017-05-02] MEDS: ISOSORBIDE DINITRATE 20 MG TAB PO SCH (22:04)
[2017-05-03] VITALS (11 sets, daily range): BP systolic 133–148; BP diastolic 70–74; PULSE 61–73; RESP 17–18
[2017-05-03] MEDS: POTASSIUM CHLORIDE (SR) 8 MEQ CAP PO SCH ×3 (00:45→20:52)
[2017-05-03] MEDS: ZOLPIDEM 5 MG TAB PO PRN (00:45)
--- NOTE | 2017-05-03 06:56 | CONS ---
DATE OF ADMISSION: 05/01/2017 DATE OF CONSULTATION: 05/02/2017 TYPE OF CONSULTATION: Cardiology. REFERRING PHYSICIAN: Brian Jessica MD REASON FOR EVALUATION: Shortness of breath. HISTORY OF PRESENT ILLNESS: Mr. Fraser is a 57-year-old gentleman with history of cardiomyopathy wi th old scar with ejection fraction about 40%, history of coronary artery disease, history of prior s tenting in 2017, hypertension, dyslipidemia, as well as renal insufficiency, comes in hospital now f or evaluation of shortness of breath. The patient says he has been doing well. He has been complia nt with his therapy, but then about a day ago he began to feel acutely short of breath. The patient already ruled out for acute myocardial infarction. He was with significant degree of fluid overloa d which was performed with IV diuresis. Currently, the patient feels much better now. For now, con servative treatment expected. We will continue to optimize afterload reduction as well as gentle di uresis. The patient feels better now already. PAST MEDICAL HISTORY: Hypertension, dyslipidemia, history of coronary artery disease, prior stentin g; history of cardiomyopathy 40%, history of renal insufficiency. ALLERGIES: THE PATIENT IS ALLERGIC TO IODINE. SOCIAL HISTORY: The patient does not smoke, does not drink, does not use drugs. FAMILY HISTORY: Negative for sudden cardiac or premature coronary artery disease. MEDICATIONS: Current medications: 1. Lipitor 20 mg p.o. once a day. 2. Metoprolol tartrate 25 mg . 3. Bumex 0.5 mg IV. 4. Isordil 10 mg p.o. t.i.d. 5. Aspirin 81 mg a day. 6. Plavix 75 mg. 7. Lisinopril 10 mg p.o. once a day. 8. Zolpidem. 9. Lorazepam. 10. Hydralazine. 11. . REVIEW OF SYSTEMS: CONSTITUTIONAL: No fevers, no chills, no shortness of breath now, so much better shortness of breat h. HEEN: No changes in vision or hearing. CARDIAC: No chest pain reported. RESPIRATORY: Short of breath, [id number]. GASTROINTESTINAL: No nausea, vomiting, diarrhea, constipation. GENITOURINARY: No dysuria or hematuria. NEUROLOGIC: No focal neurologic deficit. PSYCHIATRIC: No history of psychiatric illness. PHYSICAL EXAMINATION: VITAL SIGNS: Temperature is 97.9, heart rate is 69, blood pressure 153/70. GENERAL: He is a well-nourished gentleman in no acute distress, alert and oriented x3, aware of his condition. HEAD: Normocephalic, atraumatic. Eyes anicteric. NECK: Supple. JVD 6-7 cm. There is no lymphadenopathy . HEART: Regular with soft holosystolic murmur mid chest. The patient's PMI is minimally displaced. There is no S3. LUNGS: Coarse at bases. ABDOMEN: Distended, bowel sounds are present. There is no hepatosplenomegaly. HEENT: Intact. EXTREMITIES: Show no clubbing, cyanosis, trace edema. LABORATORY DATA: Sodium 143, potassium 4.4. His BUN is 34, creatinine 1.47. Troponin is negative at 0.019. ASSESSMENT AND PLAN: 1. Chest pain. The patient did not rule in for acute ischemia and I doubt acute ischemic event. C ontinue medical therapy for now. 2. CHF. Patient has heart failure, [id number]. Continue gentle diuresis, as long as his cre atinine tolerates. 3. Acute renal failure. Creatinine is to 1.47, close to baseline. Renal team follows. 4. Hypertension. Blood pressure on the high side. We will allow for now. Continue afterload redu ction as needed. 5. History of dyslipidemia. Continue the patient on statin. I would like to thank Dr. Jessica for referring this patient for my evaluation. Dictated By: ANDERSON SEN MD ML/NTS Conf#: [id number] DID#: [id number] CC: BRIAN JESSICA MD;*EndCC*
[2017-05-03 07:32] LABS: BASOPHIL # 0.1 10^3/ul (0.0-0.1); BASOPHILS % 0.6 % (0.0-2.0); EOSINOPHILS # 0.2 10^3/ul (0.0-0.5); EOSINOPHILS % 2.3 % (0.0-7.0); HEMATOCRIT 31.4 % (42.0-52.0); HEMOGLOBIN 9.3 g/dl (14.0-18.0); LYMPHOCYTES # 0.9 10^3/ul (0.8-2.9); LYMPHOCYTES % 9.2 % (15.0-51.0); MEAN CORPUSCULAR HEMOGLOBIN 24.5 pg (29.0-33.0); MEAN CORPUSCULAR HGB CONC 29.6 g/dl (32.0-37.0); MEAN CORPUSCULAR VOLUME 82.8 fl (82.0-101.0); MEAN PLATELET VOLUME 10.6 fl (7.4-10.4); MONOCYTE # 0.7 10^3/ul (0.3-0.9); NEUTROPHIL # 8.1 10^3/ul (1.6-7.5); NEUTROPHILS % 80.5 % (39.0-77.0); PLATELET COUNT 196 10^3/UL (140-415); RED BLOOD COUNT 3.79 10^6/ul (4.70-6.10); WHITE BLOOD COUNT 10.1 10^3/ul (4.8-10.8)
[2017-05-03 07:57] LABS: CREATININE 1.05 mg/dl (0.61-1.24)
[2017-05-03 08:20] LABS: CALCIUM 8.3 mg/dl (8.4-10.2); POTASSIUM 3.2 mmol/L (3.5-5.1)
--- NOTE | 2017-05-03 09:30 | RADRPT ---
PROCEDURE: XR Chest. CLINICAL INDICATION: CHF TECHNIQUE: An AP view of the chest was obtained. COMPARISON: None. FINDINGS: There is prominence of the interstitial and central pulmonary vascular markings with small bilatera l pleural effusions. No focal airspace opacification or pneumothorax is seen. The cardiomediastin al silhouette is moderately enlarged. The osseous structures are unremarkable. IMPRESSION: 1. Findings suggestive of pulmonary vascular congestion/interstitial edema, significantly to the p rior examination. 2. Moderate cardiomegaly. RPTAT: HH .Belle Silver MD, MD Date Time Electronically viewed and signed by .Belle Silver MD, MD on 05/03/2017 09:29 .G/
[2017-05-03] MEDS: LISINOPRIL 10 MG TAB PO SCH (10:04)
[2017-05-03] MEDS: ASPIRIN 81 MG TAB PO SCH (10:04)
[2017-05-03] MEDS: METOPROLOL 25 MG TAB PO SCH (10:04)
[2017-05-03] MEDS: ISOSORBIDE DINITRATE 20 MG TAB PO SCH ×3 (10:04→20:52)
[2017-05-03] MEDS: CLOPIDOGREL 75 MG TAB PO SCH (10:05)
[2017-05-03] MEDS: FUROSEMIDE 40 MG INJ IV SCH (10:05)
[2017-05-03] MEDS ORDERED: POTASSIUM CHLORIDE (SR) 20 MEQ TAB PO STA (13:58)
--- NOTE | 2017-05-03 14:16 | PN ---
Date/Time of Note Date/Time of Note DATE: 05/03/17 TIME: 14:06 Assessment/Plan VTE Prophylaxis VTE Prophylaxis Intervention: other Lines/Catheters [facility] Saline Lock Urinary Cath still in place: No Assessment/Plan Chief Complaint/Hosp Course 57 y/o with # CHF. pular-ft-ignntnt systolic ? non compliance. Continue gentle diuresis, as long as his creatinine tolerates. # Acute renal failure. Creatinine is to 1.47> improved #. Hypertension. #. History of dyslipidemia # hx CAD s/p percutaneous transluminal coronary angioplasty (PTCA) and stent placement. Plan - c/w iv lasix 40 net negative 1.1 L and exam improving - c/w ASA/ plavix/statin/ imdur/ Lisnopril - ? Coreg vs MTP per Cards - Appreciate cards consult - Daily wts and fluid restriction to 1.5 L Problems: Subjective 24 Hr Interval Summary Free Text/Dictation Pt is feeling a lot better he said" peeing like a ahorse" Net negative 1.1 L Exam/Review of Systems Vital Signs Vitals Vital Signs Date Time Temp Pulse Resp B/P Pulse Ox O2 Delivery O2 Flow Rate FiO2 05/03/17 12:19 61 05/03/17 11:32 97.6 17 133/74 94 05/03/17 08:15 Nasal Cannula 3.0 05/01/17 20:10 35 Intake and Output 05/02/17 05/02/17 05/03/17 14:59 22:59 06:59 Intake Total 1200 ml 350 ml Output Total 2250 ml 400 ml Balance -1050 ml -50 ml Exam gEN: He is a well-nourished gentleman in no acute distress, alert and oriented x3, aware of his condition. HEAD: Normocephalic, atraumatic. Eyes anicteric. NECK: Supple.+jvd HEART: Holosystolic murmur LUNGS: decreased at bases ABDOMEN: Distended, bowel sounds are present. There is no hepatosplenomegaly. HEENT: Intact. EXTREMITIES: Show no clubbing, cyanosis, trace edema. Results Result Diagram: 05/03/17 0715 05/03/17 0715 Results 24 hrs Laboratory Tests Test 05/03/17 07:15 White Blood Count 10.1 # Red Blood Count 3.79 L Hemoglobin 9.3 L Hematocrit 31.4 L Mean Corpuscular Volume 82.8 Mean Corpuscular Hemoglobin 24.5 L Mean Corpuscular Hemoglobin Concent 29.6 L Red Cell Distribution Width 17.0 H Platelet Count 196 Mean Platelet Volume 10.6 H Neutrophils % 80.5 H Lymphocytes % 9.2 L Monocytes % 7.0 Eosinophils % 2.3 Basophils % 0.6 Nucleated Red Blood Cells % 0.0 Neutrophils # 8.1 H Lymphocytes # 0.9 Monocytes # 0.7 Eosinophils # 0.2 Basophils # 0.1 Nucleated Red Blood Cells # 0.0 Sodium Level 141 Potassium Level 3.2 L Chloride Level 105 Carbon Dioxide Level 26 Anion Gap 13 Blood Urea Nitrogen 25 H Creatinine 1.05 Glucose Level 84 Calcium Level 8.3 L Medications Medications Current Medications Morphine Sulfate (morphine) 2 mg Q4H PRN IV pain; Start 05/02/17 at 00:00 Zolpidem Tartrate (Ambien) 10 mg HS PRN PO INSOMNIA Last administered on 00:45; Admin Dose 5 MG; Start 05/02/17 at 01:30 Lorazepam (Ativan) 1 mg Q6H PRN PO ANXIETY; Start 05/02/17 at 01:30 Hydralazine HCl (Apresoline) 10 mg Q6H PRN IV SBP > 160 Last administered on 08:14; Admin Dose 10 MG; Start 05/02/17 at 01:30 Furosemide (Lasix) 40 mg DAILY IV Last administered on 05/03/17 10:05; Admin Dose 40 MG; Start 05/02/17 at 12:00 Acetaminophen (Tylenol Tab) 325 mg Q6H PRN PO MILD PAIN LEVEL 1-3; Start 05/02 at 12:00 Aspirin (Aspirin) 81 mg DAILY PO Last administered on 05/03/17 10:04; Admin Dose 81 MG; Start 05/02/17 at 12:00 Atorvastatin Calcium (Lipitor) 20 mg QHS PO Last administered on 05/02/17 22: 03; Admin Dose 20 MG; Start 05/02/17 at 21:00 Clopidogrel Bisulfate (plaVIX) 75 mg DAILY PO Last administered on 05/03/17 10:05; Admin Dose 75 MG; Start 05/02/17 at 12:00 Lisinopril (Zestril) 10 mg DAILY PO Last administered on 05/03/17 10:04; Admin Dose 10 MG; Start 05/02/17 at 12:00 Metoprolol Tartrate (Lopressor) 25 mg BID PO Last administered on 05/03/17 10 :04; Admin Dose 25 MG; Start 05/02/17 at 21:00 Nitroglycerin (Nitroglycerin (Sl Tab) 0.4 Mg) 0.4 tab TITRATE PRN SL CHEST PAIN ; Start 05/02/17 at 12:00 Potassium Chloride (Micro-K) 8 meq BID PO Last administered on 05/03/17 10:03 ; Admin Dose 8 MEQ; Start 05/02/17 at 12:00 Isosorbide Dinitrate (Isordil) 20 mg TID PO Last administered on 05/03/17 10: 04; Admin Dose 20 MG; Start 05/02/17 at 21:00 ECTOR WHITAKER MD May 03, 2017 14:16
--- NOTE | 2017-05-03 14:24 | CONS ---
Date/Time of Note Date/Time of Note DATE: 05/03/17 TIME: 14:20 Assessment/Plan Assessment/Plan Chief Complaint/Hosp Course IMP: 1.CHF-systolic acute on chronic 2, Cardiomyopathy with low EF 35-40%by stress and ech0 02/2017 3.HTN 4.HL 5. H/O PTCA/stent most recent 12/2016(Negative stress for ischemia 02/2017) 6. REnal failure/hypokalemia REcc: -Tele -serial ecg's -Continue ACEI and BB but change to toprol xl -Continue statin -Continue lasix and follow volume status clsoely -STart aldactone Problems: Consultation Date/Type/Reason Admit Date/Time May 01, 2017 at 21:04 Initial Consult Date 05/01/17 Type of Consultation: cardiology Reason for Consultation CHF Referring Provider: ECTOR WHITAKER MD Exam/Review of Systems Vital Signs Vitals Vital Signs Date Time Temp Pulse Resp B/P Pulse Ox O2 Delivery O2 Flow Rate FiO2 05/03/17 12:19 61 05/03/17 11:32 97.6 17 133/74 94 05/03/17 08:15 Nasal Cannula 3.0 05/01/17 20:10 35 Intake and Output 05/02/17 05/02/17 05/03/17 15:00 23:00 07:00 Intake Total 1200 ml 350 ml Output Total 2250 ml 400 ml Balance -1050 ml -50 ml Exam Review of Systems: CONSTITUTIONAL: No fevers, chills. PULMONARY: No sob CARDIOVASCULAR: No chest pain/palpitations GASTROINTESTINAL: No nausea/vomiting. GENITOURINARY: No hematuria/dysuria. MUSCULOSKELETAL: No myagias/arthalgias. PSYCHIATRIC: The patient denies depression. NEUROLOGIC: No weakness Constitutional: alert, oriented Psych: no complaints Head: normocephalic ENMT: mucosa pink and moist Neck: jvd (9 cm water), supple Respiratory: diminished breath sounds Cardiovascular: regular rate and rhythm Gastrointestinal: non-tender, soft Musculoskeletal: muscle tone (normal) Extremities: edema (none) Neurological: other (NO focal deficits) Results Result Diagram: 05/03/17 0715 05/03/17 0715 Results 24 hrs Laboratory Tests Test 05/03/17 07:15 White Blood Count 10.1 # Red Blood Count 3.79 L Hemoglobin 9.3 L Hematocrit 31.4 L Mean Corpuscular Volume 82.8 Mean Corpuscular Hemoglobin 24.5 L Mean Corpuscular Hemoglobin Concent 29.6 L Red Cell Distribution Width 17.0 H Platelet Count 196 Mean Platelet Volume 10.6 H Neutrophils % 80.5 H Lymphocytes % 9.2 L Monocytes % 7.0 Eosinophils % 2.3 Basophils % 0.6 Nucleated Red Blood Cells % 0.0 Neutrophils # 8.1 H Lymphocytes # 0.9 Monocytes # 0.7 Eosinophils # 0.2 Basophils # 0.1 Nucleated Red Blood Cells # 0.0 Sodium Level 141 Potassium Level 3.2 L Chloride Level 105 Carbon Dioxide Level 26 Anion Gap 13 Blood Urea Nitrogen 25 H Creatinine 1.05 Glucose Level 84 Calcium Level 8.3 L Medications Medications Current Medications Morphine Sulfate (morphine) 2 mg Q4H PRN IV pain; Start 05/02/17 at 00:00 Zolpidem Tartrate (Ambien) 10 mg HS PRN PO INSOMNIA Last administered on 00:45; Admin Dose 5 MG; Start 05/02/17 at 01:30 Lorazepam (Ativan) 1 mg Q6H PRN PO ANXIETY; Start 05/02/17 at 01:30 Hydralazine HCl (Apresoline) 10 mg Q6H PRN IV SBP > 160 Last administered on 08:14; Admin Dose 10 MG; Start 05/02/17 at 01:30 Furosemide (Lasix) 40 mg DAILY IV Last administered on 05/03/17 10:05; Admin Dose 40 MG; Start 05/02/17 at 12:00 Acetaminophen (Tylenol Tab) 325 mg Q6H PRN PO MILD PAIN LEVEL 1-3; Start 05/02 at 12:00 Aspirin (Aspirin) 81 mg DAILY PO Last administered on 05/03/17 10:04; Admin Dose 81 MG; Start 05/02/17 at 12:00 Atorvastatin Calcium (Lipitor) 20 mg QHS PO Last administered on 05/02/17 22: 03; Admin Dose 20 MG; Start 05/02/17 at 21:00 Clopidogrel Bisulfate (plaVIX) 75 mg DAILY PO Last administered on 05/03/17 10:05; Admin Dose 75 MG; Start 05/02/17 at 12:00 Lisinopril (Zestril) 10 mg DAILY PO Last administered on 05/03/17 10:04; Admin Dose 10 MG; Start 05/02/17 at 12:00 Metoprolol Tartrate (Lopressor) 25 mg BID PO Last administered on 05/03/17 10 :04; Admin Dose 25 MG; Start 05/02/17 at 21:00 Nitroglycerin (Nitroglycerin (Sl Tab) 0.4 Mg) 0.4 tab TITRATE PRN SL CHEST PAIN ; Start 05/02/17 at 12:00 Potassium Chloride (Micro-K) 8 meq BID PO Last administered on 05/03/17 10:03 ; Admin Dose 8 MEQ; Start 05/02/17 at 12:00 Isosorbide Dinitrate (Isordil) 20 mg TID PO Last administered on 05/03/17 10: 04; Admin Dose 20 MG; Start 05/02/17 at 21:00 YUDY ZEE 13, 2017 14:24
[2017-05-03] MEDS: ATORVASTATIN 20 MG TAB PO SCH (20:52)
[2017-05-04] VITALS (10 sets, daily range): BP systolic 129–169; BP diastolic 66–86; PULSE 63–77; RESP 17–20
[2017-05-04] MEDS: ZOLPIDEM 5 MG TAB PO PRN (00:06)
[2017-05-04] MEDS ORDERED: SPIRONOLACTONE 25 MG TAB PO SCH (09:00)
[2017-05-04] MEDS ORDERED: METOPROLOL (XL) 25 MG TAB PO SCH (09:00)
[2017-05-04] MEDS: POTASSIUM CHLORIDE (SR) 8 MEQ CAP PO SCH (09:21)
[2017-05-04] MEDS: CLOPIDOGREL 75 MG TAB PO SCH (09:22)
[2017-05-04] MEDS: FUROSEMIDE 40 MG INJ IV SCH (09:22)
[2017-05-04] MEDS: ISOSORBIDE DINITRATE 20 MG TAB PO SCH ×2 (09:23→12:29)
[2017-05-04] MEDS: ASPIRIN 81 MG TAB PO SCH (09:23)
[2017-05-04] MEDS: LISINOPRIL 10 MG TAB PO SCH (09:24)
[2017-05-04 11:14] LABS: ABNORMAL IP MESSAGE 1; BASOPHILS % 0.5 % (0.0-2.0); EOSINOPHILS # 0.2 10^3/ul (0.0-0.5); EOSINOPHILS % 2.5 % (0.0-7.0); HEMOGLOBIN 9.8 g/dl (14.0-18.0); LYMPHOCYTES # 0.5 10^3/ul (0.8-2.9); LYMPHOCYTES % 7.4 % (15.0-51.0); MEAN CORPUSCULAR HEMOGLOBIN 24.8 pg (29.0-33.0); MEAN CORPUSCULAR HGB CONC 29.7 g/dl (32.0-37.0); MEAN CORPUSCULAR VOLUME 83.5 fl (82.0-101.0); MEAN PLATELET VOLUME 10.5 fl (7.4-10.4); MONOCYTE # 0.4 10^3/ul (0.3-0.9); MONOCYTES % 5.6 % (0.0-11.0); NEUTROPHIL # 6.1 10^3/ul (1.6-7.5); NEUTROPHILS % 83.6 % (39.0-77.0); PLATELET COUNT 216 10^3/UL (140-415); POSITIVE DIFF @See below; RED BLOOD COUNT 3.95 10^6/ul (4.70-6.10); RED CELL DISTRIBUTION WIDTH 16.8 % (11.5-14.5); WHITE BLOOD COUNT 7.3 10^3/ul (4.8-10.8)
[2017-05-04 11:37] LABS: ALBUMIN 3.3 g/dl (3.3-4.9); ALBUMIN/GLOBULIN RATIO 1.03; BILIRUBIN,INDIRECT 0.6 mg/dl (0-1.1); BILIRUBIN,TOTAL 0.6 mg/dl (0.2-1.3); CALCIUM 8.8 mg/dl (8.4-10.2); CREATININE 1.05 mg/dl (0.61-1.24); POTASSIUM 3.6 mmol/L (3.5-5.1); TOTAL PROTEIN 6.5 g/dl (6.1-8.1)
--- NOTE | 2017-05-04 11:53 | CONS ---
Date/Time of Note Date/Time of Note DATE: 05/04/17 TIME: 11:51 Assessment/Plan Assessment/Plan Additional Assessment/Plan 1. Chest pain. The patient did not rule in for acute ischemia and I doubt acute ischemic event. Continue medical therapy for now. R/o [place]. 2. CHF. Patient has heart failure, [id number]. Continue gentle diuresis , as long as his creatinine tolerates. Con't diuresis - better with lasix. 3. Acute renal failure. Creatinine close to baseline. Renal team follows. Avoid nephrotoxic meds. 4. Hypertension. Blood pressure on the high side. We will allow for now. Continue afterload reduction as needed. 5. History of dyslipidemia. Continue the patient on statin. Consultation Date/Type/Reason Admit Date/Time May 01, 2017 at 21:04 Type of Consultation: cardiology Referring Provider: ECTOR WHITAKER MD 24 HR Interval Summary Free Text/Dictation NO acute events - stable diuresis now - better SOB. ROS: No fever, no chills, no nausea, no vomiting, no diarrhea/constipation No recent weight changes No chest pain, no PND, no orthopnea No dizziness, blurred vision No thirst, no heat or cold intolerance Exam/Review of Systems Vital Signs Vitals Vital Signs Date Time Temp Pulse Resp B/P Pulse Ox O2 Delivery O2 Flow Rate FiO2 05/04/17 11:34 97.3 72 20 139/66 100 05/04/17 08:15 Nasal Cannula 3.0 05/01/17 20:10 35 Intake and Output 05/03/17 05/03/17 05/04/17 15:00 23:00 07:00 Intake Total 700 ml 400 ml Output Total 1600 ml Balance -900 ml 400 ml Exam General: WN/WD/NAD, A O x 3 HEENT: Unicetric/atraumatic/EOMI (follows commands) NECK: JVD elevated, no thyromegaly Lymph: no lymphadenopathy HEART: regular with no S3, II/ systolic murmur at apex, no S3 LUNGS: Coarse sounds ABD: soft, NT, ND, +BS : Intact Neuro: non focal SKIN: chronic changes EXT: trace edema Results Result Diagram: 05/04/17 1042 05/04/17 1042 Results 24 hrs Laboratory Tests Test 05/04/17 10:42 White Blood Count 7.3 # Red Blood Count 3.95 L Hemoglobin 9.8 L Hematocrit 33.0 L Mean Corpuscular Volume 83.5 Mean Corpuscular Hemoglobin 24.8 L Mean Corpuscular Hemoglobin Concent 29.7 L Red Cell Distribution Width 16.8 H Platelet Count 216 Mean Platelet Volume 10.5 H Neutrophils % 83.6 H Lymphocytes % 7.4 L Monocytes % 5.6 Eosinophils % 2.5 Basophils % 0.5 Nucleated Red Blood Cells % 0.0 Neutrophils # 6.1 Lymphocytes # 0.5 L Monocytes # 0.4 Eosinophils # 0.2 Basophils # 0.0 Nucleated Red Blood Cells # 0.0 Sodium Level 142 Potassium Level 3.6 Chloride Level 104 Carbon Dioxide Level 29 Anion Gap 13 Blood Urea Nitrogen 23 H Creatinine 1.05 Glucose Level 145 # Calcium Level 8.8 Total Bilirubin 0.6 Direct Bilirubin 0.00 Indirect Bilirubin 0.6 Aspartate Amino Transf (AST/SGOT) 19 Alanine Aminotransferase (ALT/SGPT) 35 Alkaline Phosphatase 66 Total Protein 6.5 Albumin 3.3 Globulin 3.20 Albumin/Globulin Ratio 1.03 Medications Medications Current Medications Morphine Sulfate (morphine) 2 mg Q4H PRN IV pain; Start 05/02/17 at 00:00 Zolpidem Tartrate (Ambien) 10 mg HS PRN PO INSOMNIA Last administered on 00:06; Admin Dose 10 MG; Start 05/02/17 at 01:30 Lorazepam (Ativan) 1 mg Q6H PRN PO ANXIETY; Start 05/02/17 at 01:30 Hydralazine HCl (Apresoline) 10 mg Q6H PRN IV SBP > 160 Last administered on 08:14; Admin Dose 10 MG; Start 05/02/17 at 01:30 Furosemide (Lasix) 40 mg DAILY IV Last administered on 05/04/17 09:22; Admin Dose 40 MG; Start 05/02/17 at 12:00 Acetaminophen (Tylenol Tab) 325 mg Q6H PRN PO MILD PAIN LEVEL 1-3; Start 05/02 at 12:00 Aspirin (Aspirin) 81 mg DAILY PO Last administered on 05/04/17 09:23; Admin Dose 81 MG; Start 05/02/17 at 12:00 Atorvastatin Calcium (Lipitor) 20 mg QHS PO Last administered on 05/03/17 20: 52; Admin Dose 20 MG; Start 05/02/17 at 21:00 Clopidogrel Bisulfate (plaVIX) 75 mg DAILY PO Last administered on 05/04/17 09:22; Admin Dose 75 MG; Start 05/02/17 at 12:00 Lisinopril (Zestril) 10 mg DAILY PO Last administered on 05/04/17 09:24; Admin Dose 10 MG; Start 05/02/17 at 12:00 Nitroglycerin (Nitroglycerin (Sl Tab) 0.4 Mg) 0.4 tab TITRATE PRN SL CHEST PAIN ; Start 05/02/17 at 12:00 Potassium Chloride (Micro-K) 8 meq BID PO Last administered on 05/04/17 09:21 ; Admin Dose 8 MEQ; Start 05/02/17 at 12:00 Isosorbide Dinitrate (Isordil) 20 mg TID PO Last administered on 05/04/17 09: 23; Admin Dose 20 MG; Start 05/02/17 at 21:00 Metoprolol Succinate (Toprol Xl) 25 mg DAILY PO Last administered on 09:24; Admin Dose 25 MG; Start 05/04/17 at 09:00 Spironolactone (Aldactone) 25 mg DAILY PO Last administered on 05/04/17 09:21 ; Admin Dose 25 MG; Start 05/04/17 at 09:00 ANDERSON SEN MD May 04, 2017 11:53
--- NOTE | 2017-05-04 16:14 | PDOCDIS ---
Discharge Instructions DIAGNOSIS Discharge Diagnosis CHF exacerbation CONDITION Patient Condition: Good HOME CARE INSTRUCTIONS: Diet Instructions: Low Fat /CholesterolSpecial Diet: cardiac 2 gm ACTIVITY: Activity Restrictions: Slowly Increase Activity FOLLOW UP/APPOINTMENTS Follow-up Plan f/u PCP in 1 week f/u Dr Majano /Dr Frost in 1-2 weeks no salt in diet fluid restrcition to 1.5 L ECTOR WHITAKER MD May 04, 2017 16:14
[2017-05-04] MEDS ORDERED: SPIR25TA PO (16:17)
[2017-05-04] MEDS ORDERED: ISOS20TA19 PO (16:17)
[2017-05-04] MEDS ORDERED: METO-335 PO (16:17)
--- NOTE | 2017-05-04 18:54 | DS ---
DATE OF ADMISSION: 05/01/2017 DATE OF DISCHARGE: 05/04/2017 REASON FOR ADMISSION: Shortness of breath. HISTORY OF PRESENT ILLNESS: This is a 57-year-old male with a past medical history of hypertension, hypercholesterolemia, coronary artery disease status post left heart catheterization with diffuse c oronary artery disease of RCA, left circumflex, status post PTCA in 12/2016, cardiomyopathy, present ed to emergency department complaining of shortness of breath for 4 days. According to the patient, he has been taking medication prescribed at home. He was seeing his primary care doctor regularly. Denied any cough or leg swelling. No fevers or chills. No vomiting or diarrhea. Had orthopnea. Denied any chest pain. On admission, the patient had labs that showed BUN of 34, creatinine 1.47. Troponins were negative. The patient had BNP which was 14,100. Had a chest x-ray that showed mode rate cardiomegaly with mild pulmonary vascular congestion. The patient was started on IV Lasix 60 a nd was admitted for further management. The patient was seen by Dr. Frost for cardiology consulta tion. The patient was continued on IV Lasix. Aldactone was added. Imdur was changed from 10 b.i.d . to 20 t.i.d. The patient was feeling much better everyday. Was net negative around 1 liter. The patient came off of oxygen. Feeling much better. Repeat chest x-ray showed improvement and curren tly stable per Dr. Frost to go home. The patient had a recent stress test a month ago which was n egative for any acute ischemia. FINAL DISCHARGE DIAGNOSES: 1. Congestive heart failure, systolic, acute on chronic. 2. Cardiomyopathy with low ejection fraction 35% to 40% by stress and echocardiogram 02/2017. 3. Hypertension. 4. Hyperlipidemia. 5. History of percutaneous transluminal coronary angioplasty and stenting more recently 12/2016. 6. Renal acute kidney injury that resolved on discharge with creatinine of 1.06. 7. Hypokalemia. FOLLOWUP: The patient was instructed to follow up with PCP in a week. The patient was instructed t o follow up with Dr. Frost in about 2 weeks. DISCHARGE MEDICATIONS: 1. Aspirin 81. 2. Plavix 75. 3. Lisinopril 10. 4. KCl 80 b.i.d. 5. p.r.n. 6. Imdur was increased to 20 t.i.d. 5. Lasix 40. 6. Aldactone 25. 7. Metoprolol XL 25 p.o. daily. DISCHARGE INSTRUCTIONS: The patient was instructed to check daily weights at home. Fluid restricti on 1.5 liters and return to the ER if he has again worsening , bilateral lower extremity edema. Dictated By: ECTOR CHÁVEZ/FERNY Conf#: [id number] DID#: [id number] CC: JOSE JESSICA MD;*End*
== END 2017-05-04 17:05 | disposition home or self-care (01) | DRG 292 ==
LOC: E/R 18:44 → MS4 21:04
PROVIDERS: ADMIT Internal Medicine Nephrology; ATTEND Internal Medicine Nephrology
DX: I50.43 Acute on chronic combined systolic (congestive) and diastolic (congestive) heart failure (principal); N17.9 Acute kidney failure, unspecified; I42.9 Cardiomyopathy, unspecified; I11.0 Hypertensive heart disease with heart failure; E78.5 Hyperlipidemia, unspecified; I25.10 Atherosclerotic heart disease of native coronary artery without angina pectoris; D64.9 Anemia, unspecified; Z95.5 Presence of coronary angioplasty implant and graft; E87.6 Hypokalemia; I25.2 Old myocardial infarction
CPT/HCPCS: 36415; 36600; 71010; 80048; 80053; 82550; 82553; 82803; 83690; 83880; 84484; 85025; 93005; 94660; 96374; 96375; J0360; J1940

== ENCOUNTER 2017-05-10 15:13 | Outpatient (CLI) | payer OTHER ==
[~2017-05-10] VITALS: Ht 172.7 cm; Wt 77.3 kg
[~2017-05-10 15:13] MED LIST changes: -DIGO125T PO; -ISOS10TA2 PO; +ISOS20TA19 PO; +METO-335 PO; -METO-448 PO; +SPIR25TA PO
[2017-05-10 15:37] VITALS: Ht 172.7 cm; Wt 77.3 kg
[2017-05-10 15:38] VITALS: BP 162/89; PULSE 81; RESP 18
--- NOTE | 2017-05-10 16:14 | PN ---
Date/Time of Note Date/Time of Note DATE: 05/10/17 TIME: 16:11 Outpatient Progress Note Chief Complaint CHF/hyperlipidemia/ASHD/anemia/hypertension HPI CHF/patient was recently admitted with his congestive heart failure, patient is breathing comfortably, no PND orthopnea, no ankle edema, patient has low ejection fraction, 35-40%, Hyperlipidemia/no xanthoma, on medication, ASHD,/no chest pain, no PND orthopnea or ankle edema, Anemia/no hematemesis or melena, Hypertension/no headache or dizziness, no local focal weakness, Review of Systems Const: No Fever, no chills, no Wt. loss, no Fatigue, normal appetite, no diaphoresis. Eyes: No pain, no discharge, no redness, no visual change, no foreign body. ENT: No pain, no bleeding, no congestion, no sore throat, no dysphagia, no discharge or rhinitis. Lymph: No adenopathy, no tender nodes, no lymphedema. Resp: No SOB, no cough, no sputum, no wheezing, no chest pain. CV: No chest pain, no palpitaions, no MARTIN, no PND, no edema. GI: Normal appetite, no pain, no nausea, no vomiting, no diarrhea, no blood, no constipation. : No frequency, no urgency, no dysuria, no hematuria, no flank pain, no discharge, no bleeding. Musc: no back pain, no neck pain, no knee pain, no restricted ROM. Skin: No rash, no skin lesions, no erythema, no laceration, no bruising, no pruritus. Neuro: No AGUILAR, no dizziness, no syncope, no seizure, no focal-weakness. Endo: No polyuria, no polydypsia, no dry-skin, no temp-intolerance. Psych: No hallucinations, no depression, no anxiety, no suicidal ideation. Ext: No edema, no pain, no ulcer, no weakness. Physical Exam Vital Signs Date Time Temp Pulse Resp B/P Pulse Ox O2 Delivery O2 Flow Rate FiO2 05/10/17 15:38 97.6 81 18 162/89 94 Room Air General Appearance: A 57 year-old male who appears well-developed, well- nourished, in no acute distress. HEENT: Head normocephalic, atraumatic. Pupils equal, round, reactive to light and accommodate. Sclerae are no jaundice. Nasal turbinates pink without erythema or nasal discharge. Mucous membranes pink and moist without lesions. Oropharynx clear without any exudate or discharge. NECK: Supple. Trachea midline, No thyromegaly, No cervical lymphadenopathy, No mass, No carotid bruits, No JVD, Carotid pulses 2+ bilaterally. PULMONARY: Clear to auscultaion bilaterally, No retractions, Chest expansion symmetric bilaterally, no rales, no ronchi, no dulness on percussion. CARDIAC: Normal SI and S2, Regular rate and rythm, no murmur, gallop, or rub. GASTROINTESTINAL: Abdomen is soft, non-tender, Non Rigid, No distention, Positive bowel sounds x4 quadrants, Liver normal. SKIN: Warm, dry, no rash, no bruise, no echmosis. EXTREMITIES: Bilateral lower extremities normal, no edema, no phlabitus, pulse palpable, no contracture. MUSCULOSKELETAL: Spine Normal, Non-tender, Normal range of motion, No swelling, no deformity, no clubbing, or cyanosis, the patient has no edema to bilateral lower extremities, dorsalis pedis pulses palpable bilaterally. NEUROLOGIC: The patient is awake, alert, oriented, responding to yes/no questions appropriately, moving all extremities, cranial nerve intact, normal strenght, normal power, normal coordination, normal gait. Allergies Coded Allergies: iodine (Verified Allergy, Unknown, FAINT, 04/12/17) [facility] ASHD/CHF/hyperlipidemia/anemia/hypertension/cardiomyopathy with low ejection fraction of 35-40, Social Hx No smoking no drinking, Family Hx Patient History: Cardiac disorder 33 FATHER 32 MOTHER Assessment/Plan Impression CHF Hyperlipidemia ASHD Anemia Hypertension Cardiomyopathy with low ejection fraction Plan Patient education done about his condition, patient very high risk for repeated admission, and high risk for sudden , patient explained about his condition and risk, Patient encouraged to follow with the primary care physician on regular basis, Patient education done to control the blood pressure, control the weight, control the lipid, and increase activity, Patient continue all medication, patient has all medication, no need for refill, Medications Home Meds Active Scripts Spironolactone* (Aldactone*) 25 Mg Tablet, 25 MG PO DAILY for 30 Days, TAB Prov:ECTOR WHITAKER MD 05/04/17 Metoprolol Succinate* (Toprol XL*) 25 Mg Tab.sr.24h, 25 MG PO DAILY for 30 Days Prov:ECTOR WHITAKER MD 05/04/17 Isosorbide Dinitrate* (Isosorbide Dinitrate*) 20 Mg Tablet, 20 MG PO TID for 30 Days, TAB Prov:ECTOR WHITAKER MD 05/04/17 Potassium Chloride* (Potassium Chloride*) 8 Meq Capsule.er, 8 MEQ PO BID for 30 Days, CAP Prov:HARJEET DELANEY 01/16/17 Furosemide* (Furosemide*) 40 Mg Tablet, 40 MG PO DAILY@06 for 30 Days, TAB Prov:HARJEET DELANEY 01/16/17 Clopidogrel Bisulfate (Clopidogrel) 75 Mg Tablet, 75 MG PO DAILY for 30 Days, TAB Prov:HARJEET DELANEY 01/16/17 Reported Medications Acetaminophen (Acetaminophen) 325 Mg Tablet, 325 MG PO Q6 Y for MILD PAIN LEVEL 1-3, TAB 01/15/17 Lisinopril* (Lisinopril*) 10 Mg Tablet, 10 MG PO DAILY, #30 TAB 01/15/17 Aspirin* (Aspirin* Chew) 81 Mg Tab.chew, 81 MG PO DAILY, TAB.CHEW 01/15/17 Nitroglycerin* (Nitroglycerin* SL) 0.4 Mg Tab.subl, 0.4 MG SL Q5MIN Y for CHEST PAIN, #50 BOTTLE 07/21/16 Atorvastatin Calcium* (Atorvastatin Calcium*) 20 Mg Tablet, 20 MG PO QHS, #30 TAB 07/13/16 Discontinued Scripts Metoprolol Tartrate* (Lopressor*) 25 Mg Tab, 25 MG PO BID for 28 Days, TAB Prov:JOSE JESSICA MD 03/03/17 Isosorbide Dinitrate* (Isordil*) 10 Mg Tablet, 10 MG PO TID for 28 Days, TAB Prov:JOSE JESSICA MD 03/03/17 Digoxin* (Digitek*) 125 Mcg Tablet, 0.125 MG PO DAILY@13 for 28 Days, TAB Prov:JOSE JESSICA MD 03/03/17 CEE ENCARNACION MD May 10, 2017 16:14
== END 2017-05-10 16:41 | disposition home or self-care (01) ==
LOC: DCC 15:13
PROVIDERS: ATTEND Internal Medicine
DX: I25.10 Atherosclerotic heart disease of native coronary artery without angina pectoris (principal); I10 Essential (primary) hypertension; I42.9 Cardiomyopathy, unspecified
CPT/HCPCS: G0463

== ENCOUNTER 2017-05-25 14:46 | Outpatient (CLI) | payer OTHER ==
[~2017-05-25] VITALS: Ht 172.7 cm; Wt 78.4 kg
[2017-05-25 14:57] VITALS: Ht 172.7 cm; Wt 78.4 kg
[2017-05-25 14:58] VITALS: BP 162/88; PULSE 72; RESP 20
--- NOTE | 2017-05-25 15:14 | PN ---
Date/Time of Note Date/Time of Note DATE: 05/25/17 TIME: 15:10 Outpatient Progress Note Chief Complaint ASHD/hypertension/anemia/insomnia HPI ASHD/patient denies any chest pain, no PND orthopnea or ankle edema, no weight gain, Hypertension/patient blood pressure slightly elevated this morning, patient just walked in, patient denies any headache or dizziness, Anemia/no hematemesis or melena, Insomnia patient has difficulty in sleeping, sometimes does not sleep for days, patient able to lie down flat, no weight gain, history of CHF, but patient has no problem in breathing at present, Review of Systems Const: No Fever, no chills, no Wt. loss, no Fatigue, normal appetite, no diaphoresis. Eyes: No pain, no discharge, no redness, no visual change, no foreign body. ENT: No pain, no bleeding, no congestion, no sore throat, no dysphagia, no discharge or rhinitis. Lymph: No adenopathy, no tender nodes, no lymphedema. Resp: No SOB, no cough, no sputum, no wheezing, no chest pain. CV: No chest pain, no palpitaions, no MARTIN, no PND, no edema. GI: Normal appetite, no pain, no nausea, no vomiting, no diarrhea, no blood, no constipation. : No frequency, no urgency, no dysuria, no hematuria, no flank pain, no discharge, no bleeding. Musc: No back pain, no neck pain, no knee pain, no restricted ROM. Skin: No rash, no skin lesions, no erythema, no laceration, no bruising, no pruritus. Neuro: No AGUILAR, no dizziness, no syncope, patient has insomnia, no seizure, no focal-weakness. Endo: No polyuria, no polydypsia, no dry-skin, no temp-intolerance. Psych: No hallucinations, no depression, no anxiety, patient has insomnia, no suicidal ideation. Ext: No edema, no pain, no ulcer, no weakness. Physical Exam Vital Signs Date Time Temp Pulse Resp B/P Pulse Ox O2 Delivery O2 Flow Rate FiO2 05/25/17 14:58 97.7 72 20 162/88 100 Room Air General Appearance: A 57 year-old male who appears well-developed, well- nourished, in no acute distress. HEENT: Head normocephalic, atraumatic. Pupils equal, round, reactive to light and accommodate. Sclerae are no jaundice. Nasal turbinates pink without erythema or nasal discharge. Mucous membranes pink and moist without lesions. Oropharynx clear without any exudate or discharge. NECK: Supple. Trachea midline, No thyromegaly, No cervical lymphadenopathy, No mass, No carotid bruits, No JVD, Carotid pulses 2+ bilaterally. PULMONARY: Clear to auscultaion bilaterally, No retractions, Chest expansion symmetric bilaterally, no rales, no ronchi, no dulness on percussion. CARDIAC: Normal SI and S2, Regular rate and rythm, no murmur, gallop, or rub. GASTROINTESTINAL: Abdomen is soft, non-tender, Non Rigid, No distention, Positive bowel sounds x4 quadrants, Liver normal. SKIN: Warm, dry, no rash, no bruise, no echmosis. EXTREMITIES: Bilateral lower extremities normal, no edema, no phlabitus, pulse palpable, no contracture. MUSCULOSKELETAL: Spine Normal, Non-tender, Normal range of motion, No swelling, no deformity, no clubbing, or cyanosis, the patient has no edema to bilateral lower extremities, dorsalis pedis pulses palpable bilaterally. NEUROLOGIC: The patient is awake, alert, oriented, responding to yes/no questions appropriately, moving all extremities, cranial nerve intact, normal strenght, normal power, normal coordination, normal gait. Allergies Coded Allergies: iodine (Verified Allergy, Unknown, FAINT, 04/12/17) PMH No change, Social Hx No change Family Hx No change Patient History: Cardiac disorder 33 FATHER 32 MOTHER Assessment/Plan Impression ASHD/hypertension/anemia/insomnia Plan Patient education done about his condition, patient explained if patient has orthopnea or PND, to immediately go to the ER or call the physician, Patient blood pressure slightly elevated, increase lisinopril to twice a day, patient on 10 mg once a day at present, Ambien 5 mg nightly #30 Patient to follow with the primary care physician, Medications Home Meds Active Scripts Spironolactone* (Aldactone*) 25 Mg Tablet, 25 MG PO DAILY for 30 Days, TAB Prov:ECTOR WHITAKER MD 05/04/17 Metoprolol Succinate* (Toprol XL*) 25 Mg Tab.sr.24h, 25 MG PO DAILY for 30 Days Prov:ECTOR WHITAKER MD 05/04/17 Isosorbide Dinitrate* (Isosorbide Dinitrate*) 20 Mg Tablet, 20 MG PO TID for 30 Days, TAB Prov:ECTOR WHITAKER MD 05/04/17 Potassium Chloride* (Potassium Chloride*) 8 Meq Capsule.er, 8 MEQ PO BID for 30 Days, CAP Prov:HARJEET DELANEY 01/16/17 Furosemide* (Furosemide*) 40 Mg Tablet, 40 MG PO DAILY@06 for 30 Days, TAB Prov:HARJEET DELANEY 01/16/17 Clopidogrel Bisulfate (Clopidogrel) 75 Mg Tablet, 75 MG PO DAILY for 30 Days, TAB Prov:HARJEET DELANEY 01/16/17 Reported Medications Acetaminophen (Acetaminophen) 325 Mg Tablet, 325 MG PO Q6 Y for MILD PAIN LEVEL 1-3, TAB 01/15/17 Lisinopril* (Lisinopril*) 10 Mg Tablet, 10 MG PO DAILY, #30 TAB 01/15/17 Aspirin* (Aspirin* Chew) 81 Mg Tab.chew, 81 MG PO DAILY, TAB.CHEW 01/15/17 Nitroglycerin* (Nitroglycerin* SL) 0.4 Mg Tab.subl, 0.4 MG SL Q5MIN Y for CHEST PAIN, #50 BOTTLE 07/21/16 Atorvastatin Calcium* (Atorvastatin Calcium*) 20 Mg Tablet, 20 MG PO QHS, #30 TAB 07/13/16 CEE ENCARNACION MD May 25, 2017 15:14
== END 2017-05-25 16:37 | disposition home or self-care (01) ==
LOC: DCC 14:46
PROVIDERS: ATTEND Internal Medicine
DX: I25.10 Atherosclerotic heart disease of native coronary artery without angina pectoris (principal); I10 Essential (primary) hypertension; D64.9 Anemia, unspecified; G47.00 Insomnia, unspecified; Z79.82 Long term (current) use of aspirin
CPT/HCPCS: G0463

== ENCOUNTER 2017-06-23 18:15 | Inpatient (IN) | END 2017-06-28 19:00 | disposition home or self-care (01) | DRG 291 ==

== ENCOUNTER 2017-10-09 21:41 | Inpatient (IN) | END 2017-10-14 21:20 | disposition home or self-care (01) | DRG 250 ==

== ENCOUNTER 2018-09-01 06:52 | Inpatient (IN) | payer OTHER ==
[2018-09-01] VITALS (30 sets, daily range): BP systolic 137–195; BP diastolic 64–93; PULSE 68–96; RESP 12–26; Ht 172.7 cm; Wt 84.0 kg
[~2018-09-01] VITALS: Ht 172.7 cm; Wt 84.0 kg
[~2018-09-01 06:52] MED LIST changes: -ACET-514 PO; +ASPI-903 PO; -ASPI81TA3 PO; +CLOP75TA27 PO; -CLOP75TA28 PO; +DIAZEPAM 5 MG TAB PO SCH; +DIPHENHYDRAMINE 50 MG CAP PO SCH; +FAMOTIDINE 20 MG TAB PO SCH; -ISOS20TA19 PO; +ISOS30TA67 PO; -LISI10TA2 PO; +METO-319 PO; -METO-335 PO; -POTA8CAP PO; +RANO500T2 PO; +SOD CHLORIDE 0.45% 1,000 ML IV SCH; -SPIR25TA PO
[2018-09-01] MEDS ORDERED: ISOS60TA PO (08:47)
[2018-09-01] MEDS ORDERED: RANO500T2 PO (08:48)
[2018-09-01] MEDS ORDERED: CLOP75TA27 PO (08:48)
[2018-09-01] MEDS ORDERED: METO-319 PO (08:48)
[2018-09-01] MEDS ORDERED: ASPI81TA52 PO (08:49)
[2018-09-01] MEDS ORDERED: FURO40TA4 PO (08:49)
[2018-09-01] MEDS ORDERED: ATOR20TA38 PO (08:49)
[2018-09-01] MEDS ORDERED: MIDAZOLAM 1 MG/ML 2 ML INJ ONE (09:07)
[2018-09-01] MEDS ORDERED: LIDOCAINE 1% (MDV) 20 ML INJ ONE (09:07)
[2018-09-01] MEDS ORDERED: HEPARIN 1000 UNITS/ML 10 ML INJ ONE (09:07)
[2018-09-01] MEDS ORDERED: IODIXANOL LOCM 100 ML BTL ONE (09:07)
[2018-09-01] MEDS ORDERED: VERAPAMIL 5 MG INJ ONE (09:07)
[2018-09-01] MEDS ORDERED: NITROGLYCERIN (IC) 100 MCG/ML INJ ONE (09:07)
[2018-09-01] MEDS ORDERED: FENTAnyl 50 MCG/ML VIAL ONE (09:09)
[2018-09-01] MEDS ORDERED: METHYLPREDNISOLONE 125 MG INJ ONE (09:48)
[2018-09-01] MEDS ORDERED: BIVALIRUDIN 250MG /NS 50 ML 50 ML IVPB ONE (10:53)
[2018-09-01] MEDS ORDERED: CLOPIDOGREL 300 MG TAB ONE (10:54)
[2018-09-01] MEDS ORDERED: ASPIRIN 325 MG TAB ONE (10:54)
--- NOTE | 2018-09-01 11:00 | SIPON ---
Date/Time of Note Date/Time of Note DATE: 09/01/18 TIME: 10:59 Operative Report Preoperative Diagnosis 1.angina/cad Postoperative Diagnosis 1.successful PTCA to PDA/RCA Operation/Procedure Performed 1.[facility] 2.PTCA to RCA/PDA Surgeon see signature line horticultural nursery assistant 1.[facility] Anesthesia: moderate sedation Estimated blood loss: minimal Transfusion Required none Specimen none Grafts/Implants none Complications none YUDY ZEE Sep 01, 2018 11:00
[2018-09-01] MEDS ORDERED: SOD CHLORIDE 0.9% 1,000 ML IV SCH (11:01)
[2018-09-01] MEDS ORDERED: AL HYDROX/MG HYDROX/SIMETH 30 ML CUP PO PRN (11:30)
[2018-09-01] MEDS ORDERED: ACETAMINOPHEN 325 MG TAB PO PRN ×2 (11:30→14:30)
[2018-09-01] MEDS ORDERED: ONDANSETRON 4 MG INJ IV PRN ×2 (11:30→14:30)
[2018-09-01] MEDS ORDERED: OXYCODONE/ACETAMINOPHEN (5/325) TAB PO PRN (11:30)
--- NOTE | 2018-09-01 11:59 | CARRPT ---
DATE OF PROCEDURE: 09/01/2018 TYPE OF PROCEDURE: 1. Left heart catheterization. 2. Coronary angiography. 3. Percutaneous transluminal coronary angioplasty to PDA. 4. Moderate conscious sedation. ATTENDING PHYSICIAN: Yudy Frost MD. REFERRING PHYSICIAN: Self-referred. INDICATION: Angina with known obstructive coronary artery disease. TYPE OF ANESTHESIA: Conscious and local. BRIEF HISTORY: Mr. Fraser is a 58-year-old male with a history of hypertension, coronary artery dise ase status post prior [employer] and stent placement to right coronary artery, who presented with complaints of refractory chest pain. The patient had undergone a previous diagnostic cardiac catheterization r evealing high-grade PDA stenosis and chronic circumflex stenosis due to poor catheter seating, poor s upport, we were not able to intervene on the vessel at that time. 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 DETAILS OF PROCEDURE: After informed consent was obtained, the patient was brought to the [facility] cardiac catheterization lab, where his right groin was prepped and draped in the u sual sterile fashion, 2% lidocaine was infiltrated into right groin in order to achieve adequate anes thesia. Using the modified Seldinger technique, the femoral artery was cannulated and a 6-Lebanese art erial sheath was placed. A 6-Lebanese JR4 catheter was used to cannulate the left main coronary ostium . With contrast injection, multiple views of this vessel were obtained. At this point, as the guide was then placed, we started Angiomax bolus continuous infusion. At this point, we attempted to pass a On Air Announcer 50 guidewire into the PDA unsuccessfully. We added a GuideLiner and tried to unsucces sfully. At this time, we exchanged this wire for a PT2 Light Support, which was able to gain access to the patient's PDA. Over this, we attempted to pass the balloon unsuccessfully. Subsequently, the guide was exchanged and we are bringing the A0.75 and the GuideLiner once again and we were able to pass the PT2 Light Support into the PDA. At is point, we are able to do balloon angioplasty with a 2 .0 x 12 mm balloon up to 14 atmospheres x3. This was removed and with now improved flow. Mild resid ual stenosis. Subsequently, at this point, we placed a Corsair microcatheter over the patient's guid ewire, tract it into the PDA and exchanged this out for a Mailman and placed this into the PDA and we attempted to pass a stent, but we were not able to pass the stent into the vessel due to severe tort uosity guide. Subsequently, at this time, it was elected to terminate the procedure. The tamia ent's guidewires and GuideLiner were removed. A followup angiogram was obtained, revealing an excell ent flow and mild residual stenosis within the PDA. Subsequently, at this time, the guide was remove d. Final angiographic images of the right femoral arterial insertion site were then obtained reveali ng the sheath to be well placed in the right common femoral artery. Subsequently, this was removed. A 6-Lebanese Perclose device was used to seal the vessel, completing procedure. There were no other c omplications. FINDINGS: 1. Coronary angiography: Right coronary artery proximally is a 3.5 mm vessel. Proximal portion has a 30% stenosis. In the mid portion, there is a stented zone which was widely patent. It is a domin ant vessel and gives off a 2 mm PDA and a 3 mm posterolateral branch with posterolateral branch havin g a focal 30% to 40% stenosis just after the takeoff of the PDA and a PDA has an ostial 80% to 90% st enosis. 2. PTCA: Prior to PTCA, the patient had an 80% to 90% stenosis. Post-PTCA, the patient had residua l 40% stenosis. MARK 3 flow throughout the vessel. No signs of complication, including perforation or dissection. TOTAL FLUOROSCOPY TIME: 18.7 minutes. TOTAL CONTRAST: 100 mL. IMPRESSION: High-grade stenosis of the patient's PDA status post successful PTCA with inability to d eliver stent due to severe tortuosity in the vessel. RECOMMENDATIONS: In light of procedure and findings at this time, we would: 1. Maintain the patient on aspirin 81 mg 1 tab p.o. daily, indefinitely. 2. Plavix 75 mg 1 tab p.o. daily for at least 3 months additional, with Plavix loading again right n ow. 3. Maximize medical management. 4. Aggressive risk factor reduction. 5. The patient will be admitted to the ICU for post-catheterization and continued management of symp toms with probable discharge the following day. Dictated By: YUDY SEN/FERNY Conf#: [id number] DID#: [id number] CC: ECTOR WHITAKER;*Ana*
[2018-09-01] MEDS: hydrALAzine 20 MG INJ IV PRN (12:39)
--- NOTE | 2018-09-01 14:03 | RADRPT ---
Vent Rate: 78 bpm RR Interval: 0 msec MD Interval: 180 msec QRS Duration: 106 msec QT Interval: 428 msec QTC Interval: 487 msec P-R-T [place]: 60 - 44 - 0 degrees Sinus rhythm with frequent premature ventricular complexes Biatrial enlargement Incomplete left bundle branch block Left ventricular hypertrophy with repolarization abnormality Prolonged QT Abnormal ECG Electronically Signed By: Ernst Frost
--- NOTE | 2018-09-01 14:05 | RADRPT ---
Vent Rate: 62 bpm RR Interval: 0 msec RI Interval: 184 msec QRS Duration: 108 msec QT Interval: 456 msec QTC Interval: 462 msec P-R-T [place]: 53 - 40 - 0 degrees Normal sinus rhythm Possible Left atrial enlargement Left ventricular hypertrophy with repolarization abnormality Abnormal ECG Electronically Signed By: Ernst Frost
--- NOTE | 2018-09-01 14:26 | HP ---
Date/Time of Note Date/Time of Note DATE: 09/01/18 TIME: 14:18 Assessment/Plan VTE Prophylaxis SCD applied (from Nsg): Yes Pharmacological prophylaxis: NA/contraindicated Pharm contraindication: low risk/ambulating Lines/Catheters IV Catheter Type (from Nrsg): Peripheral IV Urinary Cath still in place: No Assessment/Plan Hospital Course SUBJECTIVE: Lying in bed comfortably. Right groin site intact. No chest pain, palpitation or other discomfort. OBJECTIVE: Vital signs-see below PHYSICAL EXAM: Constitutional: Well-developed, adequately built, lying in bed comfortably. Psych: nl mood/affect, no complaints Head: atraumatic, normocephalic Eyes: nl conjunctiva, nl sclera ENMT: mucosa pink and moist, nl external ears & nose Neck: non-tender, supple Respiratory: clear to auscultation, normal air movement Cardiovascular: nl pulses, regular rate and rhythm Gastrointestinal: non-tender, soft, bowel sounds active in all 4 quadrants. Musculoskeletal/extremities: RIGHT GROIN SITE INTACT. nl extremities to inspection, motor strength equal bilaterally, no focal deficit. Normal pulses,no cyanosis, no edema. Neurological: Alert oriented 3,nl speech, nl strength Skin: nl turgor ASSESSMENT/PLAN: 58-year-old male with coronary artery disease, PTCA, recent NSTEMI, dyslipidemia, cardiomyopathy/CHF, brought in for elective left heart catheterization. 1. Coronary artery disease -Status post LHC/PTCA to RCA/PAD 09/01/2018 -Management per cardiology. Continue statin/antihypertensives DAPT -We will resume statin, nitrates, Ranexa and beta-blockers 2. Chronic systolic congestive heart failure. -Compensated -Resume BB, Nitrates, Lasix. Consider initiation of ACEi? (stable renal fxn) 3. Ischemic cardiomyopathy with last known ejection fraction 35-40% -Again, we will resume patient on his cardiac medications. -Follow-up cardiology recommendations. 4. Dyslipidemia. -Resume statin 5. Chronic anemia -Stable H&H. DVT prophylaxis: SCDs/ambulation. Patient is also on dual antiplatelet. PUD prophylaxis: Not indicated CODE STATUS: Full code Diet: Low-cholesterol/low-fat diet. Rest of the management depend on hospital course. Approximately 60 minutes was spent on this history and physical. Patient is seen in collaboration with Result Diagram: 09/01/18 0812 09/01/18 0816 Results 24hrs Laboratory Tests Test 09/01/18 08:12 09/01/18 08:16 White Blood Count 7.6 Red Blood Count 3.86 L Hemoglobin 11.8 L Hematocrit 36.9 L Mean Corpuscular Volume 95.6 Mean Corpuscular Hemoglobin 30.6 Mean Corpuscular Hemoglobin Concent 32.0 Red Cell Distribution Width 13.9 Platelet Count 188 Mean Platelet Volume 10.1 Immature Granulocytes % 0.400 Neutrophils % 72.7 Lymphocytes % 16.4 Monocytes % 7.3 Eosinophils % 2.5 Basophils % 0.7 Nucleated Red Blood Cells % 0.0 Immature Granulocytes # 0.030 Neutrophils # 5.5 Lymphocytes # 1.2 Monocytes # 0.6 Eosinophils # 0.2 Basophils # 0.1 Nucleated Red Blood Cells # 0.0 Prothrombin Time 13.3 Prothrombin Time Ratio 1.0 INR International Normalized Ratio 1.00 Activated Partial Thromboplast Time 28.0 Sodium Level 144 Potassium Level 3.6 Chloride Level 109 Carbon Dioxide Level 25 Anion Gap 10 Blood Urea Nitrogen 27 H Creatinine 1.16 Est Glomerular Filtrat Rate mL/min > 60 Glucose Level 99 Calcium Level 9.1 Triglycerides Level 111 Cholesterol Level 143 LDL Cholesterol, Calculated 87 HDL Cholesterol 34 Cholesterol/HDL Ratio 4.2 HPI/ROS Admit Date/Time Admit Date/Time Hx of Present Illness This is a 58-year-old male with a past medical history of coronary artery disease, PCI, recent NSTEMI, hypertension, CM/ CHF, renal insufficiency, dyslipidemia, anemia, 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 Patient was seen post procedure. He denied chest pain, palpitation, shortness of breath, nausea, vomiting, abdominal pain, loss of consciousness, dizziness, numbness, tingling, headache, fever, chills, palpitation, diaphoresis or other constitutional symptoms. Stable vital signs. Labs stable except for hemoglobin 11.8, hematocrit 36.9. ROS A 12 point review of system was assessed and is negative other than what is mentioned in the HPI PMH/Family/Social Past Medical History See HPI Medications Current Medications Diazepam (Valium) 5 mg OC PO Last administered on 09/01/18at 08:47; Admin Dose 5 MG; Start 09/01/18 at 06:00; Stop 09/01/18 at 16:00 Famotidine (Pepcid) 20 mg OC PO Last administered on 09/01/18at 08:47; Admin Dose 20 MG; Start 09/01/18 at 06:00; Stop 09/01/18 at 16:00 Diphenhydramine HCl (Benadryl) 50 mg OC PO Last administered on 09/01/18at 08:47; Admin Dose 50 MG; Start 09/01/18 at 06:00; Stop 09/01/18 at 16:00 Sodium Chloride 1,000 ml @ 0 mls/hr Q0M IV Last administered on 09/01/18at 08:48; Admin Dose 60 MLS/HR; Start 09/01/18 at 06:00; Stop 09/01/18 at 16:00 Aspirin (Halfprin) 81 mg DAILY PO ; Start 09/02/18 at 09:00 Clopidogrel Bisulfate (plaVIX) 75 mg DAILY PO ; Start 09/02/18 at 09:00 Acetaminophen (Tylenol Tab) 650 mg Q4H PRN PO PAIN; Start 09/01/18 at 11:30 Oxycodone/ Acetaminophen (Percocet (5/ 325)) 1 tab Q4H PRN PO PAIN; Start 09/01/18 at 11:30 Morphine Sulfate (morphine) 1 mg Q1H PRN IV PAIN; Start 09/01/18 at 11:30 Zolpidem Tartrate (Ambien) 5 mg HS MAY REPEAT X 1 PRN PO INSOMNIA; Start 09/01/18 at 11:30 Al Hydrox/Mg Hydrox/Simethicone (Mag-Al Plus) 30 ml Q4H PRN PO GASTROINTESTINAL UPSET; Start 09/01/18 at 11:30 Ondansetron HCl (Zofran Inj) 4 mg Q4H PRN IV NAUSEA AND/OR VOMITING; Start at 11:30 Sodium Chloride 1,000 ml @ 75 mls/hr [id number] IV Last administered on 09/01/18at 11:01; Admin Dose 75 MLS/HR; Start 09/01/18 at 11:01; Stop 09/02/18 at 00:20 Clonidine (Catapres) 0.1 mg Q6H PRN PO ELEVATED SYSTOLIC BP; Start 09/01/18 at 11:30 Hydralazine HCl (Apresoline) 10 mg Q4H PRN IV ELEVATED SYSTOLIC BP Last administered on 09/01/18at 12:39; Admin Dose 10 MG; Start 09/01/18 at 11:30 Furosemide (Lasix) 40 mg DAILY PO ; Start 09/02/18 at 09:00 Isosorbide Mononitrate (Imdur) 90 mg DAILY PO ; Start 09/02/18 at 09:00 Metoprolol Succinate (Toprol Xl) 50 mg DAILY PO ; Start 09/02/18 at 09:00 Ranolazine (Ranexa) 500 mg Q12 PO ; Start 09/01/18 at 21:00 Atorvastatin Calcium (Lipitor) 20 mg QHS PO ; Start 09/01/18 at 21:00 Coded Allergies: Iodinated Contrast- Oral and IV Dye (Verified Allergy, Unknown, "FEELS FAINT", 09/01/18) Past Surgical History See HPI Past Surgical Hx: no surgical history Family History Significant Family History: no pertinent family hx Social History Former smoker. Denied alcohol/substance abuse history. Smoking Status: Former smoker Exam/Review of Systems Vital Signs Vitals Vital Signs Date Temp Pulse Resp B/P (MAP) Pulse Ox O2 O2 Flow FiO2 Time Delivery Rate 09/01/18 79 15 137/78 Nasal 2.0 13:15 (97) Cannula 09/01/18 97.9 12:56 09/01/18 99 12:19 GOMEZ WILKINSON NP Sep 01, 2018 14:26
[2018-09-01] MEDS ORDERED: NACL 0.9% 3 ML SYG IV SCH (14:30)
[2018-09-01] MEDS ORDERED: HYDROCODONE/APAP (5/325) TAB PO PRN (14:30)
[2018-09-01] MEDS ORDERED: DOCUSATE SODIUM 100 MG CAP PO PRN (14:30)
--- NOTE | 2018-09-01 15:40 | QN ---
Documentation Comment pt seen and examined ECTOR WHITAKER MD Sep 01, 2018 15:40
[2018-09-01] MEDS ORDERED: ATORVASTATIN 20 MG TAB PO SCH (21:00)
[2018-09-01] MEDS: ACETYLCYSTEINE 600 MG CAP PO SCH (21:16)
[2018-09-01] MEDS: RANOLAZINE (SR) 500 MG TAB PO SCH (21:21)
[2018-09-01] MEDS: ZOLPIDEM 5 MG TAB PO PRN (23:05)
[2018-09-02] VITALS (21 sets, daily range): BP systolic 102–184; BP diastolic 36–95; PULSE 65–108; RESP 10–25
[2018-09-02] MEDS: ZOLPIDEM 5 MG TAB PO PRN (00:54)
[2018-09-02] MEDS: morphine 2 MG INJ IV PRN ×2 (01:30→04:38)
[2018-09-02] MEDS: hydrALAzine 20 MG INJ IV PRN (01:34)
[2018-09-02] MEDS: NITROGLYCERIN (SL) 0.4 MG TAB SL PRN ×4 (02:00→04:39)
[2018-09-02] MEDS ORDERED: LABETALOL HCL 20MG INJ IV ONE (04:30)
[2018-09-02] MEDS ORDERED: FUROSEMIDE 40 MG TAB PO SCH (09:00)
[2018-09-02] MEDS ORDERED: ASPIRIN (EC) 81 MG TAB PO SCH (09:00)
[2018-09-02] MEDS ORDERED: METOPROLOL (XL) 50 MG TAB PO SCH (09:00)
[2018-09-02] MEDS ORDERED: CLOPIDOGREL 75 MG TAB PO SCH (09:00)
[2018-09-02] MEDS ORDERED: ISOSORBIDE MONONITRATE(SR)60 MG TAB PO SCH (09:00)
--- NOTE | 2018-09-02 09:21 | CONS ---
Consultation Date/Type/Reason Admit Date/Time Sep 01, 2018 at 14:55 Initial Consult Date Date/Time of Note DATE: 09/02/18 TIME: 09:20 24 HR Interval Summary Free Text/Dictation Pt had cp last night Exam/Review of Systems Exam Vitals Vital Signs Date Temp Pulse Resp B/P (MAP) Pulse Ox O2 O2 Flow FiO2 Time Delivery Rate 09/02/18 12 126/55 96 Nasal 2.0 05:00 (78) Cannula 09/02/18 98.0 103 04:00 Intake and Output 09/01/18 09/01/18 09/02/18 1515:00 23:00 07:00 IntakeIntake Total 250 ml 1125 ml 345 ml OutputOutput Total 900 ml 1250 ml 200 ml BalanceBalance -650 ml -125 ml 145 ml Exam onstitutional: Well-developed, adequately built, lying in bed comfortably. Psych: nl mood/affect, no complaints Head: atraumatic, normocephalic Eyes: nl conjunctiva, nl sclera ENMT: mucosa pink and moist, nl external ears & nose Neck: non-tender, supple Respiratory: clear to auscultation, normal air movement Cardiovascular: nl pulses, regular rate and rhythm Gastrointestinal: non-tender, soft, bowel sounds active in all 4 quadrants. Musculoskeletal/extremities: RIGHT GROIN SITE INTACT Results Result Diagram: 09/02/18 0503 09/02/18 0503 Results 24hrs Laboratory Tests Test 09/02/18 05:03 White Blood Count 11.4 #H Red Blood Count 4.17 L Hemoglobin 12.9 L Hematocrit 39.0 L Mean Corpuscular Volume 93.5 Mean Corpuscular Hemoglobin 30.9 Mean Corpuscular Hemoglobin Concent 33.1 Red Cell Distribution Width 13.6 Platelet Count 199 Mean Platelet Volume 10.6 H Immature Granulocytes % 0.300 Neutrophils % 87.8 H Lymphocytes % 6.4 L Monocytes % 5.4 Eosinophils % 0.0 Basophils % 0.1 Nucleated Red Blood Cells % 0.0 Immature Granulocytes # 0.030 Neutrophils # 10.0 H Lymphocytes # 0.7 L Monocytes # 0.6 Eosinophils # 0.0 Basophils # 0.0 Nucleated Red Blood Cells # 0.0 Sodium Level 139 Potassium Level 3.5 Chloride Level 105 Carbon Dioxide Level 25 Anion Gap 9 Blood Urea Nitrogen 24 H Creatinine 1.01 Est Glomerular Filtrat Rate mL/min > 60 Glucose Level 112 Hemoglobin A1c 5.2 Calcium Level 8.8 Phosphorus Level 3.7 Magnesium Level 1.8 Total Bilirubin 0.5 Direct Bilirubin 0.00 Indirect Bilirubin 0.5 Aspartate Amino Transf (AST/SGOT) 17 Alanine Aminotransferase (ALT/SGPT) 29 Alkaline Phosphatase 74 Troponin I 0.129 *H Total Protein 6.5 Albumin 3.7 Globulin 2.80 Albumin/Globulin Ratio 1.32 Triglycerides Level 71 Cholesterol Level 153 LDL Cholesterol, Calculated 96 HDL Cholesterol 43 Cholesterol/HDL Ratio 3.5 Medications Medication Current Medications Aspirin (Halfprin) 81 mg DAILY PO ; Start 09/02/18 at 09:00 Clopidogrel Bisulfate (plaVIX) 75 mg DAILY PO ; Start 09/02/18 at 09:00 Oxycodone/ Acetaminophen (Percocet (5/ 325)) 1 tab Q4H PRN PO PAIN; Start 09/01/18 at 11:30 Morphine Sulfate (morphine) 1 mg Q1H PRN IV PAIN Last administered on 09/02/18at 01:30; Admin Dose 1 MG; Start 09/01/18 at 11:30 Zolpidem Tartrate (Ambien) 5 mg HS MAY REPEAT X 1 PRN PO INSOMNIA Last administered on 09/02/18at 00:54; Admin Dose 5 MG; Start 09/01/18 at 11:30 Al Hydrox/Mg Hydrox/Simethicone (Mag-Al Plus) 30 ml Q4H PRN PO GASTROINTESTINAL UPSET; Start 09/01/18 at 11:30 Clonidine (Catapres) 0.1 mg Q6H PRN PO ELEVATED SYSTOLIC BP Last administered on 09/02/18at 02:08; Admin Dose 0.1 MG; Start 09/01/18 at 11:30 Hydralazine HCl (Apresoline) 10 mg Q4H PRN IV ELEVATED SYSTOLIC BP Last administered on 09/02/18at 01:34; Admin Dose 10 MG; Start 09/01/18 at 11:30 Furosemide (Lasix) 40 mg DAILY PO ; Start 09/02/18 at 09:00 Isosorbide Mononitrate (Imdur) 90 mg DAILY PO ; Start 09/02/18 at 09:00 Metoprolol Succinate (Toprol Xl) 50 mg DAILY PO ; Start 09/02/18 at 09:00 Ranolazine (Ranexa) 500 mg Q12 PO Last administered on 09/01/18at 21:21; Admin Dose 500 MG; Start 09/01/18 at 21:00 Atorvastatin Calcium (Lipitor) 20 mg QHS PO Last administered on 09/01/18at 21:17; Admin Dose 20 MG; Start 09/01/18 at 21:00 IV Flush (NS 3 ml) 3 ml PER PROTOCOL IV ; Start 09/01/18 at 14:30 Ondansetron HCl (Zofran Inj) 4 mg Q6H PRN IV NAUSEA/VOMITING; Start 09/01/18 at 14:30 Acetaminophen (Tylenol Tab) 650 mg Q6H PRN PO .PAIN 1-3 OR TEMP; Start 09/01/18 at 14:30 Acetaminophen/ Hydrocodone Bitart ([place] (5/325)) 1 tab Q6H PRN PO .MOD PAIN 4- 6; Start 09/01/18 at 14:30 Docusate Sodium (Colace) 100 mg Q12H PRN PO .CONSTIPATION; Start 09/01/18 at 14:30 Acetylcysteine (Nac) 1,200 mg BID PO Last administered on 09/01/18at 21:16; Admin Dose 1,200 MG; Start 09/01/18 at 21:00 Nitroglycerin (Nitroglycerin (Sl Tab) 0.4 Mg) 1 tab Q5M PRN SL ANGINA Last administered on 09/02/18at 03:00; Admin Dose 1 TAB; Start 09/02/18 at 02:30 ECTOR WHITAKER MD Sep 02, 2018 09:21
[2018-09-02] MEDS: ACETYLCYSTEINE 600 MG CAP PO SCH ×2 (09:28→17:47)
[2018-09-02] MEDS: RANOLAZINE (SR) 500 MG TAB PO SCH (09:29)
--- NOTE | 2018-09-02 09:42 | CONS ---
DATE OF ADMISSION: 09/01/2018 DATE OF CONSULTATION: REASON FOR CONSULTATION: CKD. HISTORY OF PRESENT ILLNESS: This is a 58-year-old male with a past medical history of coronary arter y disease, PCI, recent non-STEMI, hypertension, CHF, CKD stage III with last baseline creatinine of 1 .36 in July 2007, dyslipidemia, anemia was brought in by Dr. Frost for elective heart catheteri zation and left heart catheterization done and had successful PTCA to PDA and RCA. Currently, the pa coretta denies any chest pain, any shortness of breath. On admission, vital signs showed temperature 9 7.9, heart rate 79, respirations 15, blood pressure 137/78, saturating 99% on 2 liters. Labs showed white count 7.6, hemoglobin 11.8, platelet count of 188, BUN of 27, creatinine 1.16, and the patient is admitted for further management. PAST MEDICAL HISTORY: 1. Hypertension. 2. Chronic systolic congestive heart failure. 3. Ischemic cardiomyopathy with EF of 35% to 40%. 4. Dyslipidemia. 5. Chronic anemia. 6. CKD. 7. Mineral bone disorder. ALLERGIES: IODINE CONTRAST. PAST SURGICAL HISTORY: Significant for status post PCIs. SOCIAL HISTORY: Denies any history of smoking, alcohol or any drug use. The patient is a former smo ker. MEDICATIONS TAKING AT HOME: 1. Plavix 75. 2. Atorvastatin 20. 3. Imdur 90. 5. Metoprolol 50. 6. Ranexa 500 q.12. 7. Aspirin 81. 8. Lasix 40. REVIEW OF SYSTEMS: The patient denies any chest pain, any shortness of breath, any abdominal pain, n ausea, vomiting, diarrhea. Denied any headache, any blurry vision. Denies any focal neurological de ficit. Denies any hematemesis, any melena, any bright red blood per rectum. PHYSICAL EXAMINATION: VITAL SIGNS: Temperature 98.0, blood pressure initially is 159/76, heart rate is 86, saturating 97% on 2 liters. GENERAL: The patient is awake, alert, oriented, does not appear to be in any acute distress. HEENT: Pupils equal, round, reactive to light. NECK: Supple, no JVD. HEART: Regular rate and rhythm. LUNGS: Decreased breath sounds bilaterally. ABDOMEN: Soft, nontender, nondistended, positive normoactive sounds. EXTREMITIES: Right groin site is intact. No evidence of acute bleeding. NEUROLOGIC: Nonfocal. DIAGNOSTIC DATA: Shows a sodium 144, potassium 3.6, chloride 109, bicarbonate 25, BUN of 27, creatin ine 1.16. White count of 7.6, hemoglobin 11.8, platelet count 188. Chest x-ray on admission had prakash wn moderate cardiomegaly. ASSESSMENT AND PLAN: This is a 58-year-old male presented with: 1. Angina, status post coronary angiogram with PTCA to RCA and PDA. 2. History of coronary artery disease. 3. Chronic kidney disease with a baseline creatinine of 1.3 to 1.4 in his last admission, July 23. 4. Ischemic cardiomyopathy with EF of 35% to 40%. 5. Hypertension. 6. Dyslipidemia. PLAN: At this period of time, the patient is admitted to CCU. We will start the patient on Mucomyst . Currently, the patient is on gentle IV fluids. We will monitor the patient for contrast nephropat hy. Actually, the patient is at best of his creatinine, which is 1.16 on this admission. Continue t he patient on aspirin, Plavix, metoprolol. We will continue to follow the patient with you. Rest of the treatment will depend on the patient's hospitalization course. Dictated By: ECTOR CHÁVEZ/FERNY Conf#: [id number] DID#: [id number] CC: YUDY FROST MD;*EndCC*
--- NOTE | 2018-09-02 11:31 | CONS ---
Assessment/Plan Assessment/Plan Hospital Course (Demo Recall) IMP: 1.cad s/p PTCA to RCA POD#1 2.HTN 3. Cardiomyopathy EF 35-40% 4.Chest pain after PCI now resolved. Possible stretch on vessel 5.postive troponin after cath. -expected 6. Renal insuff-stable Recc: -Poss D/C planning if patient stable/asymptomatic and ok with renal -ambulate patient -Continue asa/plavix -Continue imdur/BB with slight increase to BB Consultation Date/Type/Reason Admit Date/Time Sep 01, 2018 at 14:55 Initial Consult Date 09/01/18 Type of Consult Cardiology Reason for Consultation chest pain/cad Requesting Provider: GOMEZ WILKINSON NP Date/Time of Note DATE: 09/02/18 TIME: 11:22 Exam/Review of Systems Vital Signs Vitals Vital Signs Date Temp Pulse Resp B/P (MAP) Pulse Ox O2 O2 Flow FiO2 Time Delivery Rate 09/02/18 84 11 146/70 97 Room Air 10:00 (95) 09/02/18 97.9 08:00 09/02/18 2.0 05:00 Intake and Output 09/01/18 09/01/18 09/02/18 1515:00 23:00 07:00 IntakeIntake Total 250 ml 1125 ml 345 ml OutputOutput Total 900 ml 1250 ml 200 ml BalanceBalance -650 ml -125 ml 145 ml Exam Exam Review of Systems: CONSTITUTIONAL: No fevers, chills. PULMONARY: No sob CARDIOVASCULAR: No chest pain/palpitations GASTROINTESTINAL: No nausea/vomiting. GENITOURINARY: No hematuria/dysuria. MUSCULOSKELETAL: No myagias/arthalgias. PSYCHIATRIC: The patient denies depression. NEUROLOGIC: No weakness Constitutional: alert Psych: no complaints Head: normocephalic ENMT: mucosa pink and moist Neck: supple, jvd (9 cm water) Respiratory: diminished breath sounds (at bases/B) Cardiovascular: regular rate and rhythm Gastrointestinal: soft, non-tender Musculoskeletal: muscle tone (normal) Extremities: edema (none) Neurological: other (No focal deficits) Labs Result Diagram: 09/02/18 0503 09/02/18 0503 Results 24hrs Laboratory Tests Test 09/02/18 05:03 White Blood Count 11.4 #H Red Blood Count 4.17 L Hemoglobin 12.9 L Hematocrit 39.0 L Mean Corpuscular Volume 93.5 Mean Corpuscular Hemoglobin 30.9 Mean Corpuscular Hemoglobin Concent 33.1 Red Cell Distribution Width 13.6 Platelet Count 199 Mean Platelet Volume 10.6 H Immature Granulocytes % 0.300 Neutrophils % 87.8 H Lymphocytes % 6.4 L Monocytes % 5.4 Eosinophils % 0.0 Basophils % 0.1 Nucleated Red Blood Cells % 0.0 Immature Granulocytes # 0.030 Neutrophils # 10.0 H Lymphocytes # 0.7 L Monocytes # 0.6 Eosinophils # 0.0 Basophils # 0.0 Nucleated Red Blood Cells # 0.0 Sodium Level 139 Potassium Level 3.5 Chloride Level 105 Carbon Dioxide Level 25 Anion Gap 9 Blood Urea Nitrogen 24 H Creatinine 1.01 Est Glomerular Filtrat Rate mL/min > 60 Glucose Level 112 Hemoglobin A1c 5.2 Calcium Level 8.8 Phosphorus Level 3.7 Magnesium Level 1.8 Total Bilirubin 0.5 Direct Bilirubin 0.00 Indirect Bilirubin 0.5 Aspartate Amino Transf (AST/SGOT) 17 Alanine Aminotransferase (ALT/SGPT) 29 Alkaline Phosphatase 74 Troponin I 0.129 *H Total Protein 6.5 Albumin 3.7 Globulin 2.80 Albumin/Globulin Ratio 1.32 Triglycerides Level 71 Cholesterol Level 153 LDL Cholesterol, Calculated 96 HDL Cholesterol 43 Cholesterol/HDL Ratio 3.5 Medications Medications Current Medications Aspirin (Halfprin) 81 mg DAILY PO Last administered on 09/02/18at 09:28; Admin Dose 81 MG; Start 09/02/18 at 09:00 Clopidogrel Bisulfate (plaVIX) 75 mg DAILY PO Last administered on 09/02/18 09:30; Admin Dose 75 MG; Start 09/02/18 at 09:00 Morphine Sulfate (morphine) 1 mg Q1H PRN IV PAIN Last administered on 09/02/18at 01:30; Admin Dose 1 MG; Start 09/01/18 at 11:30 Zolpidem Tartrate (Ambien) 5 mg HS MAY REPEAT X 1 PRN PO INSOMNIA Last administered on 09/02/18at 00:54; Admin Dose 5 MG; Start 09/01/18 at 11:30 Al Hydrox/Mg Hydrox/Simethicone (Mag-Al Plus) 30 ml Q4H PRN PO GASTROINTESTINAL UPSET; Start 09/01/18 at 11:30 Clonidine (Catapres) 0.1 mg Q6H PRN PO ELEVATED SYSTOLIC BP Last administered on 09/02/18 02:08; Admin Dose 0.1 MG; Start 09/01/18 at 11:30 Hydralazine HCl (Apresoline) 10 mg Q4H PRN IV ELEVATED SYSTOLIC BP Last administered on 09/02/18 01:34; Admin Dose 10 MG; Start 09/01/18 at 11:30 Furosemide (Lasix) 40 mg DAILY PO Last administered on 09/02/18 09:30; Admin Dose 40 MG; Start 09/02/18 at 09:00 Isosorbide Mononitrate (Imdur) 90 mg DAILY PO Last administered on 09/02/18 09:30; Admin Dose 90 MG; Start 09/02/18 at 09:00 Metoprolol Succinate (Toprol Xl) 50 mg DAILY PO Last administered on 09/02/18 09:31; Admin Dose 50 MG; Start 09/02/18 at 09:00 Ranolazine (Ranexa) 500 mg Q12 PO Last administered on 09/02/18 09:29; Admin Dose 500 MG; Start 09/01/18 at 21:00 Atorvastatin Calcium (Lipitor) 20 mg QHS PO Last administered on 09/01/18 21:17; Admin Dose 20 MG; Start 09/01/18 at 21:00 IV Flush (NS 3 ml) 3 ml PER PROTOCOL IV ; Start 09/01/18 at 14:30 Ondansetron HCl (Zofran Inj) 4 mg Q6H PRN IV NAUSEA/VOMITING; Start 09/01/18 at 14:30 Acetaminophen (Tylenol Tab) 650 mg Q6H PRN PO .PAIN 1-3 OR TEMP; Start 09/01/18 at 14:30 Acetaminophen/ Hydrocodone Bitart ([place] (5/325)) 1 tab Q6H PRN PO .MOD PAIN 4- 6; Start 09/01/18 at 14:30 Docusate Sodium (Colace) 100 mg Q12H PRN PO .CONSTIPATION; Start 09/01/18 at 14:30 Acetylcysteine (Nac) 1,200 mg BID PO Last administered on 09/02/18 09:28; Admin Dose 1,200 MG; Start 09/01/18 at 21:00 Nitroglycerin (Nitroglycerin (Sl Tab) 0.4 Mg) 1 tab Q5M PRN SL ANGINA Last administered on 09/02/18at 03:00; Admin Dose 1 TAB; Start 09/02/18 at 02:30 YUDY ZEE Sep 02, 2018 11:31
[2018-09-02] MEDS ORDERED: METO-319 PO (11:56)
--- NOTE | 2018-09-02 11:56 | PDOCDIS ---
Discharge Instructions CONDITION [id number] Patient Condition: [id number] Stable HOME CARE INSTRUCTIONS: [id number] Diet Instructions: [id number] Low Fat /Cholesterol FOLLOW UP/APPOINTMENTS Follow-up Plan Follow-up with Dr. Frost in 1-2 weeks. GOMEZ WILKINSON NP Sep 02, 2018 11:56
[2018-09-02] MEDS ORDERED: ASPI81TA52 PO (11:57)
[2018-09-02] MEDS ORDERED: ATOR20TA38 PO (11:57)
[2018-09-02] MEDS ORDERED: CLOP75TA27 PO (11:57)
--- NOTE | 2018-09-02 12:06 | DS ---
Date/Time of Note Date/Time of Note DATE: 09/02/18 TIME: 12:04 Discharge Summary Admission/Discharge Info Admit Date/Time Sep 01, 2018 at 14:55 Discharge Date/Time Discharge Diagnosis 1. Coronary artery disease,Status post LHC/PTCA to RCA/PAD 09/01/2018 2. Chronic systolic congestive heart failure. 3. Ischemic cardiomyopathy with last known ejection fraction 35-40% 4. Dyslipidemia. 5. Chronic anemia Patient Condition: Stable Consults Dr. Frost, cardiology ,nephrology Procedures 09/01/2018. Operation/Procedure Performed 1.LHC 2.PTCA to RCA/PDA Hx of Present Illness This is a 58-year-old male with a past medical history of coronary artery disease, PCI, recent NSTEMI, hypertension, CM/ CHF, renal insufficiency, dyslipidemia, anemia, was brought in by jacquard plate maker for elective left heart catheterization. Patient was seen post procedure. He denied chest pain, palpitation, shortness of breath, nausea, vomiting, abdominal pain, loss of consciousness, dizziness, numbness, tingling, headache, fever, chills, palpitation, diaphoresis or other constitutional symptoms. Stable vital signs. Labs stable except for hemoglobin 11.8, hematocrit 36.9. Hospital Course 58-year-old male with coronary artery disease, PTCA, recent NSTEMI, dyslipidemia, cardiomyopathy/CHF, brought in for elective left heart catheterization. Patient underwent LHC/PTCA to RCA/PAD 09/01/2018. He was continued on dual antiplatelets, statin and antihypertensives. He was continued on his home regimen including nitrates, Ranexa with adjustment in beta-constanza dosage. Patient was also continued on diuretics for underlying CHF. Patient was also given Mucomyst for renal protection secondary to history of renal insufficiency in the past. Patient did well postprocedure. He was kept in ICU for ob servation. Right groin site remained intact. Renal function remained stable. He was able to tolerate diet and activities well. Blood pressure was controlled. Patient was noted with trace troponin elevation on 09/02/2018, no chest pain or EKG changes. As per cardiology, this is expected post heart cath. Beta-constanza dose titrated up. At this time, patient was cleared from car diology standpoint for discharge with outpatient follow-up. As per renal recommendation, I have instructed the nursing staff to give second dose of Mucomyst and discharge him afterwards. Approximately 60 m spent on coordinating the discharge on this patient. Patient was seen in collaboration with Dr. Colon. Home Meds Active Scripts Atorvastatin Calcium* (Atorvastatin Calcium*) 20 Mg Tablet, 20 MG PO QHS, #30 TAB Prov:WILKINSONAVIVAA V. ASSISTANT DIRECTOR 09/02/18 Aspirin (Low Dose Aspirin) 81 Mg Tablet.dr, 81 MG PO DAILY, #30 TAB Prov:WILKINSONGOMEZ V. ASSISTANT DIRECTOR 09/02/18 Clopidogrel Bisulfate (Clopidogrel) 75 Mg Tablet, 75 MG PO DAILY, #30 TAB Prov:WILKINSON,GOMEZ V. ASSISTANT DIRECTOR 09/02/18 Metoprolol Succinate* (Toprol XL*) 50 Mg Tab.er.24h, 75 MG PO DAILY, #30 TAB Prov:WILKINSON,GOMEZ V. ASSISTANT DIRECTOR 09/02/18 Reported Medications Furosemide* (Furosemide*) 40 Mg Tablet, 40 MG PO DAILY, TAB 09/01/18 Ranolazine* (Ranexa*) 500 Mg Tab.sr.12h, 500 MG PO Q12, TAB 09/01/18 Isosorbide Mononitrate* (Isosorbide Mononitrate*) 60 Mg Tab.er.24h, 90 MG PO D AILY, TAB 09/01/18 Discontinued Reported Medications Metoprolol Succinate* (Toprol XL*) 50 Mg Tab.er.24h, 50 MG PO DAILY, #30 TAB 09/01/18 Metoprolol Succinate* (Toprol XL*) 50 Mg Tab.er.24h, 50 MG PO DAILY, #30 TAB 07/26/18 Atorvastatin Calcium* (Atorvastatin Calcium*) 20 Mg Tablet, 20 MG PO QHS, #30 TAB 07/26/18 Ranolazine* (Ranexa*) 500 Mg Tab.sr.12h, 500 MG PO Q12, TAB 07/26/18 Isosorbide Mononitrate* (Isosorbide Mononitrate*) 30 Mg Tab.er.24h, 90 MG PO DAILY, TAB.SA 07/26/18 Clopidogrel Bisulfate (Clopidogrel) 75 Mg Tablet, 75 MG PO DAILY, #30 TAB 07/26/18 Aspirin* (Aspirin* Chew) 81 Mg Tab.chew, 81 MG PO DAILY, TAB.CHEW 01/15/17 Nitroglycerin* (Nitroglycerin* SL) 0.4 Mg Tab.subl, 0.4 MG SL Q5MIN PRN for CHEST PAIN, #50 BOTTLE 07/21/16 Discontinued Scripts Furosemide* (Furosemide*) 40 Mg Tablet, 40 MG PO BID DIURETICS for 30 Days, #60 TAB Prov:ECTOR WHITAKER MD 06/28/17 Follow-up Plan Follow-up with Dr. Frost in 1-2 weeks. Primary Care Provider [facility] Pending Labs Laboratory Tests Test 09/02/18 05:03 White Blood Count 11.4 10^3/ul (4.8-10.8) Red Blood Count 4.17 10^6/ul (4.70-6.10) Hemoglobin 12.9 g/dl (14.0-18.0) Hematocrit 39.0 % (42.0-52.0) Mean Corpuscular Volume 93.5 fl (82.0-101.0) Mean Corpuscular Hemoglobin 30.9 pg (29.0-33.0) Mean Corpuscular Hemoglobin Concent 33.1 g/dl (32.0-37.0) Red Cell Distribution Width 13.6 % (11.5-14.5) Platelet Count 199 10^3/UL (140-415) Mean Platelet Volume 10.6 fl (7.4-10.4) Immature Granulocytes % 0.300 % (0.001-0.429) Neutrophils % 87.8 % (39.0-77.0) Lymphocytes % 6.4 % (15.0-51.0) Monocytes % 5.4 % (0.0-11.0) Eosinophils % 0.0 % (0.0-7.0) Basophils % 0.1 % (0.0-2.0) Nucleated Red Blood Cells % 0.0 /100WBC (0.0-0.0) Immature Granulocytes # 0.030 10^3/ul (0.0-0.031) Neutrophils # 10.0 10^3/ul (1.6-7.5) Lymphocytes # 0.7 10^3/ul (0.8-2.9) Monocytes # 0.6 10^3/ul (0.3-0.9) Eosinophils # 0.0 10^3/ul (0.0-0.5) Basophils # 0.0 10^3/ul (0.0-0.1) Nucleated Red Blood Cells # 0.0 10^3/ul (0.0-0.0) Sodium Level 139 mmol/L (135-144) Potassium Level 3.5 mmol/L (3.5-5.1) Chloride Level 105 mmol/L (97-110) Carbon Dioxide Level 25 mmol/L (21-31) Anion Gap 9 (5-13) Blood Urea Nitrogen 24 mg/dl (7-20) Creatinine 1.01 mg/dl (0.61-1.24) Est Glomerular Filtrat Rate mL/min > 60 mL/min (>60) Glucose Level 112 mg/dl (70-220) Hemoglobin A1c 5.2 % (0-5.9) Calcium Level 8.8 mg/dl (8.4-10.2) Phosphorus Level 3.7 mg/dl (2.5-4.9) Magnesium Level 1.8 mg/dl (1.7-2.5) Total Bilirubin 0.5 mg/dl (0.2-1.3) Direct Bilirubin 0.00 mg/dl (0.00-0.20) Indirect Bilirubin 0.5 mg/dl (0-1.1) Aspartate Amino Transf (AST/SGOT) 17 IU/L (15-46) Alanine Aminotransferase (ALT/SGPT) 29 IU/L (13-69) Alkaline Phosphatase 74 IU/L (42-121) Troponin I 0.129 ng/ml (0.000-0.120) Total Protein 6.5 g/dl (6.1-8.1) Albumin 3.7 g/dl (3.3-4.9) Globulin 2.80 g/dl (1.3-3.2) Albumin/Globulin Ratio 1.32 Triglycerides Level 71 mg/dl (0-149) Cholesterol Level 153 mg/dl (100-200) LDL Cholesterol, Calculated 96 mg/dl HDL Cholesterol 43 mg/dl (28-71) Cholesterol/HDL Ratio 3.5 RATIO GOMEZ WILKINSON NP Sep 02, 2018 12:06
[2018-09-02] MEDS ORDERED: NITR0.4T32 SL (14:00)
--- NOTE | 2018-09-02 17:56 | RADRPT ---
Vent Rate: 82 bpm RR Interval: 0 msec [place] Interval: 204 msec QRS Duration: 104 msec QT Interval: 430 msec QTC Interval: 502 msec P-R-T [place]: 56 - 18 - 172 degrees Normal sinus rhythm Left atrial enlargement ST & T wave abnormality, consider inferolateral ischemia Prolonged QT Abnormal ECG Electronically Signed By: Ernst Frost
--- NOTE | 2018-09-02 17:57 | RADRPT ---
Vent Rate: 96 bpm RR Interval: 0 msec [place] Interval: 172 msec QRS Duration: 108 msec QT Interval: 372 msec QTC Interval: 469 msec P-R-T [place]: 71 - 38 - 173 degrees Normal sinus rhythm Biatrial enlargement Left ventricular hypertrophy with repolarization abnormality Abnormal ECG Electronically Signed By: Ernst Frost
[2018-09-03] MEDS ORDERED: METOPROLOL (XL) 50 MG TAB PO SCH (09:00)
== END 2018-09-02 18:39 | disposition home or self-care (01) | DRG 251 ==
LOC: SDS 06:52 → ICU 14:55
PROVIDERS: ADMIT Internal Medicine; ATTEND Family Medicine
PROC: B211YZZ Fluoroscopy of Multiple Coronary Arteries using Other Contrast (ICD-10-PCS; 2018-09-01)
PROC: 02703ZZ Dilation of Coronary Artery, One Artery, Percutaneous Approach (ICD-10-PCS; principal; 2018-09-01 09:00)
PROC: 4A023N7 Measurement of Cardiac Sampling and Pressure, Left Heart, Percutaneous Approach (ICD-10-PCS; 2018-09-01 09:00)
DX: I25.110 Atherosclerotic heart disease of native coronary artery with unstable angina pectoris (principal); I13.0 Hypertensive heart and chronic kidney disease with heart failure and stage 1 through stage 4 chronic kidney disease, or unspecified chronic kidney disease; I50.22 Chronic systolic (congestive) heart failure; E78.5 Hyperlipidemia, unspecified; N18.9 Chronic kidney disease, unspecified; I25.5 Ischemic cardiomyopathy; D64.9 Anemia, unspecified; Z79.82 Long term (current) use of aspirin; Z79.02 Long term (current) use of antithrombotics/antiplatelets; Z95.5 Presence of coronary angioplasty implant and graft
CPT/HCPCS: 71045; 80048; 80053; 80061; 83036; 83735; 84100; 84484; 85025; 85610; 85730; 87081; 92920; 93005; 93454; C1725; C1760; C1887; C1894; J0360; J0583; J1644; J2250; J2270; J2930; J3010; Q9967